=== PATIENT | male | born 1955 | race Caucasian/White ===

== ENCOUNTER → 2018-01-11 07:02 | Day surgery (SDC) | payer OTHER ==
[~2018-01-11 07:02] MED LIST: Buffered Lidocaine 0.9% SYRIN* 5 ML/SYR SYRINGE INTRADERM ONE; Bupivacaine 0.25% SDV* 30 ML ONE; Clindamycin 900 MG/D5W BAG(*) 900 MG/50 ML BAG IVPB ONE; Lidocain 1% EPI 1:100,000 * 30 ML MDV ONE; Lidocaine 2% PF * 5 ML VIAL ONE; Lidocaine 2.5%/Prilocain 2.5%* 5 GM TUBE ONE; Methylene Blue 0.5 %* 50 MG/10 ML AMP IV ONE; Metoprolol Succinate XL TAB* 25 MG PO ONE; Midazolam* 1 MG/ML 5 ML VIAL (5 MG) ONE; Naloxone* 0.4 MG/ML 1 ML VIAL IV PRN; Ondansetron INJ* 2 MG/ML VIAL ONE; Propofol* 10 MG/ML 20 ML BTL IV PUSH ONE; Scopolamine 1.5 mg* PATCH ONE; fentaNYL* 50 MCG/ML 2 ML VIAL (100 MCG VIAL) IV PRN; fentaNYL* 50 MCG/ML 2 ML VIAL (100 MCG VIAL) ONE
[2018-01-11 16:05] VITALS: BP 115/77
== END | disposition home or self-care (01) ==
LOC: OR 07:02
PROVIDERS: ATTEND Plastic Surgery
DX: C49.21 Malignant neoplasm of connective and soft tissue of right lower limb, including hip (principal); C77.4 Secondary and unspecified malignant neoplasm of inguinal and lower limb lymph nodes; Z79.84 Long term (current) use of oral hypoglycemic drugs; I10 Essential (primary) hypertension; E78.5 Hyperlipidemia, unspecified; E11.40 Type 2 diabetes mellitus with diabetic neuropathy, unspecified
CPT/HCPCS: 78195; 88305; 88307; 88341; 88342; A9270-GY; A9541; C1776; J2250; J2405; J2704; J3010

== ENCOUNTER 2018-06-13 11:54 | Observation (INO) | payer OTHER ==
[2018-06-13] MEDS ORDERED: Acetaminophen TAB* 325 MG PO PRN (12:18)
[2018-06-13] MEDS ORDERED: Loperamide CAP* 2 MG PO PRN (12:22)
[2018-06-13] MEDS ORDERED: Dextrose 50% Syringe 50 ML* 25 GM/50 ML SYRINGE IV PUSH PRN (12:23)
[2018-06-13] MEDS ORDERED: Enoxaparin(*) 40 MG/0.4 ML SYR SUBCUT SCH (13:00)
[2018-06-13] MEDS: NS 0.9% 1000 ML** 1,000 ML IV SCH ×2 (14:43→22:02)
[2018-06-13] MEDS ORDERED: traMADol TAB* 50 MG PO PRN (14:49)
--- NOTE | 2018-06-13 16:07 | CONSULT ---
Subjective Date of Service: 06/13/18 Interval History: Mr. Roman is a 63 yo male with PMH significant for HTN, HLD, DM2, diabetic neuropathy, melanoma who presented to the hospital for TENZIN and hyperglycemia. 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 He is noted to have a black pigmented raised lesion to his right 1st toe and presented to the hospital with a suspected melanona recurrence to his right 1st toe. Patient seen and examined at bedside. Family History: Unchanged from Admission Social History: Unchanged from Admission Past Medical History: Unchanged from Admission - DM2, peripheral neuropathy, HTN , HLD, melanoma. Shx: right 1st toe distal ampulation, right knee meniscus repair, 2 c spine fusions, umbilical hernia repair. Review of Systems - Review of Systems Constitutional Symptoms: Negative: Fever, Other Dermatology: Positive: Cancer - Melanoma Endocrinology: Positive: Diabetes Mellitus Neurology: Positive: Other - Peripheral neuropathy Objective Active Medications: Acetaminophen (Tylenol Tab*) 650 mg PO Q4H PRN Reason: FEVER/PAIN Aspirin (Aspirin Ec Tab*) 81 mg PO QAM [facility] Atorvastatin Calcium (Lipitor*) 40 mg PO QAM [facility] Dextrose (D50w Syringe 50 Ml*) 12.5 gm IV PUSH .FOR FS < 60 - SS PRN Reason: FS < 60 Enoxaparin Sodium (Lovenox(*)) 30 mg SUBCUT Q24H [facility] Sodium Chloride (Ns 0.9% 1000 Ml) 1,000 mls @ 125 mls/hr IV PER RATE [facility] Insulin Glargine (Lantus(*)) 20 units SUBCUT Q24H [facility] Insulin Human Lispro (Humalog*) 0 units SUBCUT ACHS [facility]; Protocol Loperamide HCl (Imodium Cap*) 2 mg PO .SEE DIRECTIONS PRN Reason: DIARRHE[facility] Metoprolol Succinate (Toprol Xl Tab*) 25 mg PO BID [facility] Polyethyl Glycol/Propylene Glycol (Lubricant Eye Drops) 1 drop BOTH EYES QID PRN Reason: DRY EYE Ramipril (Altace Cap*) 10 mg PO QAM [facility] Tramadol HCl (Ultram*) 50 mg PO Q6HR PRN Reason: PAIN Vital Signs 06/13/18 14:10 Temperature 97.5 F Pulse Rate 97 Respiratory 18 Rate Blood Pressure 135/78 (mmHg) O2 Sat by Pulse 97 Oximetry Oxygen Devices in Use Now: None Appearance: NAD, laying in bed Ears/Nose/Mouth/Throat: Mucous Membranes Moist Skin: - - See skin note below Neurological: Alert and Oriented x 3 Nutrition: Taking PO's Result Diagrams: 06/14/18 05:10 06/14/18 05:10 Additional Lab and Data: Laboratory Tests 06/12/18 06/13/18 13:40 09:48 WBC 8.3 Hgb 14.3 Hct 40 Plt Count 405 Sodium 125 L Potassium 4.6 Chloride 95 L Carbon Dioxide 16 L BUN 31 H Creatinine 3.06 H Glucose 670 H* Skin Deviation Note - Skin Deviation Findings Right first toe - Lateral aspect of the toe with a thick black raised lesion. There is mild erythema to the surrounding skin on the right toe and foot. Small amount of serosang drainage. Right anterior [place] - Multiple raised lesions, no drainage. Some with purplish discoloration and others with black discoloration. Assessment/Plan: Mr. Roman is a 63 yo male with PMH significant for HTN, HLD, DM2, diabetic neuropathy, melanoma who presented to the hospital for TENZIN and hyperglycemia. He is noted to have a raised black pigmented lesion to his right 1st toe concerning for melanoma recurrence. 1. Lesion to right 1st toe. Patient with a history of melanoma on the distal aspect of this toe in the past and previously the melanoma/distal 1st toe was surgically removed by Dr. Jack. He "bumped" his toe a few days ago and has had some bleeding from the area since. Recommend obtaining a skin biopsy to verify if this is a recurrent melanoma. Should also contact Dr. Mays (as he previously has seen the patient) for possible surgical excision. Recommend applying a dry dressing to the toe. 2. Diabetes Mellitus, type 2 with peripheral neuropathy. No HgA1C in the EMR. Maintain good glycemic control to allow for wound healing. 3. Diet. Consistent Carbohydrate 4. Code Status. Full Code 5. Disposition. OBV, disposition per the primary medicine team. TIME SPENT: Time for this wound consultation was 20 minutes and 10 minutes was spent with the patient discussing past medical history, medication, assessing, measuring, and photographing the lesion. Wound Problem/Plan Is Patient a Wound Clinic Patient: No Attending: Krystal Mcdonough
[2018-06-13] MEDS: Insulin LISPRO* 1 UNITS UNIT SUBCUT SCH ×3 (16:18→22:07)
[2018-06-13] MEDS: Enoxaparin(*) 30 MG/0.3 ML SYR SUBCUT SCH (16:19)
[2018-06-13] MEDS ORDERED: Insulin GLARGINE(*) 1 UNITS UNIT SUBCUT SCH (17:00)
[2018-06-13] MEDS: Polyethyl Glycol/Propylene Gly OPHTH.SOLN BOTH EYES PRN ×2 (18:27→19:30)
[2018-06-13] MEDS ORDERED: Insulin LISPRO* 1 UNITS UNIT SUBCUT ONE ×2 (19:00→22:05)
[2018-06-13] MEDS: Metoprolol Succinate XL TAB* 25 MG PO SCH (21:58)
[2018-06-14] MEDS: NS 0.9% 1000 ML** 1,000 ML IV SCH (05:34)
[2018-06-14 06:02] LABS: ABS Basophils 0 10^3/ul (0-0.2); ABS Eosinophils 0 10^3/ul (0-0.6); ABS Lymphocytes 1.1 10^3/ul (1.0-4.8); ABS Monocytes 0.6 10^3/ul (0-0.8); ABS Nucleated RBC 0 10^3/ul; Eosinophil % 0.2 %; Hematocrit 29 % (36-46); Hemoglobin 10.3 g/dL (14.0-18.0); Lymphocyte % 10.8 %; Mean Corpuscular HGB Conc 36 g/dL (31-36); Mean Corpuscular Hemoglobin 29 pg (27-31); Mean Corpuscular Volume 82 fL (80-94); Mean Platelet Volume 7.3 fL (7.4-10.4); Nucleated Red Blood Cells % 0; Platelet Count 247 10^3/uL (150-450); Red Blood Count 3.55 10^6 /uL (4.18-5.48); Red Cell Distribution Width 13 % (10.5-15); White Blood Count 9.8 10^3/uL (3.5-10.8)
[2018-06-14 06:22] LABS: Albumin 3.1 g/dL (3.2-5.2); Albumin/Globulin Ratio 1.1 (1-3); BUN/Creatinine Ratio 12.7 (8-20); Calcium 7.7 mg/dL (8.6-10.3); EGFR African American 33.7 (>60); EGFR Non-African American 27.9 (>60); Globulin 2.9 g/dL (2-4); Potassium 4.1 mmol/L (3.5-5.0); Total Bilirubin 0.5 mg/dL (0.2-1.0)
[2018-06-14] MEDS ORDERED: Magnesium Sulfate CRYSTAL* 454 GM BOX PRN (08:05)
[2018-06-14 08:07] VITALS: BP 110/68
[2018-06-14] MEDS: Insulin LISPRO* 1 UNITS UNIT SUBCUT SCH ×2 (08:27→12:38)
[2018-06-14] MEDS: Metoprolol Succinate XL TAB* 25 MG PO SCH (08:28)
[2018-06-14] MEDS ORDERED: predniSONE TAB* 20 MG PO SCH (09:00)
[2018-06-14] MEDS ORDERED: Ramipril CAP* 10 MG PO SCH (09:00)
[2018-06-14] MEDS ORDERED: predniSONE TAB* 50 MG PO SCH (09:00)
[2018-06-14] MEDS ORDERED: Aspirin EC TAB* 81 MG TAB.EC PO SCH (09:00)
[2018-06-14] MEDS ORDERED: Atorvastatin* 40 MG TAB PO SCH (09:00)
[2018-06-14] MEDS ORDERED: Insulin GLARGINE(*) 1 UNITS UNIT SUBCUT ONE (09:25)
--- NOTE | 2018-06-14 12:19 | DS ---
CC: Dr. Castro; Dr. Rangel* DATE OF ADMISSION: 06/13/2018. DATE OF DISCHARGE: 06/14/2018. PRIMARY CARE PHYSICIAN: Dr. Castro. PRIMARY ONCOLOGIST AND ATTENDING PHYSICIAN: Dr. Hugo Rangel* (dictated by MARIAM Brand). DISCHARGING PROVIDER: MARIAM Brand. PRIMARY DISCHARGE DIAGNOSES: 1. Acute kidney injury secondary to hypovolemia secondary to GI loss from immune mediated enteritis and complicated by hyperglycemia. 2. Hyperglycemia exacerbated by steroid use. 3. 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 4. 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 5. Diabetes, now insulin dependent. DISCHARGE MEDICATIONS: 1. Aspirin 81 mg p.o. daily. 2. Atorvastatin 40 mg p.o. daily. 3. Vitamin D3 2,000 units p.o. daily. 4. Metoprolol Succinate 25 mg p.o. twice daily. 5. Multivitamin one capsule p.o. daily. 6. Ramipril 10 mg p.o. daily. 7. Ultram 50 mg p.o. q.6 hours as needed. 8. Insulin Glargine 60 units subcu daily. 9. Loperamide 2 mg p.o. q.loose bowel movement prn diarrhea. 10. Prednisone 60 mg p.o. daily with plans to taper. HOSPITAL IMAGING: None. HOSPITAL COURSE: This is a 63-year-old gentleman with known melanoma who unfortunately has experienced recent cutaneous metastases, currently treated with Nivolumab and Ipilimumab and has received two cycles. He presented with several days of severe diarrhea and associated with acute kidney injury for which he received IV fluids in the Oncology Clinic and started on oral Prednisone as it was likely due to an immune mediated enteritis. The patient subsequently presented the following day with severe hyperglycemia and persistent elevation of his creatinine and was subsequently admitted to a period of observation for additional hydration and glucose control. Labs at the time of admission included a creatinine of 3.06, down from 3.3 the day prior , a sodium of 125, and a glucose of 646. The patient received IV fluid and insulin. Over a period of approximately 20 hours, the patient received 82 units of insulin total between Lantus and Humalog and his fasting glucose on the day of discharge is 315 mg/dl. The patient reported that he had a formed bowel movement overnight. He denied abdominal pain, nausea or vomiting. DISPOSITION AND FOLLOW-UP PLAN: The patient is being discharged to home. Will initiate Lantus 60 units subcu daily. Anticipate that this may need to be titrated further. His is quite familiar with insulin administration as she does it for herself on a daily basis. At this time, fasting blood glucose goals are 250 or less. Anticipate that his glycemic control will improve as his prednisone is tapered. His diarrhea has slowed and he did have a formed bowel movement prior to discharge. Anticipate that his renal function will continue to improve as his glycemic control continues to improve and his diarrhea has stopped. The patient will be seen on Monday, June 18 for labs and an office visit in the Oncology Clinic. Immunotherapy is currently on hold with plans to resume if his diarrhea does not return with completion of his steroid taper. MARIAM BRAND [id number]/[facility] #: [id number] PAOLA
[2018-06-14] MEDS: Enoxaparin(*) 30 MG/0.3 ML SYR SUBCUT SCH (12:38)
[2018-06-14] MEDS ORDERED: Insulin GLARGINE(*) 1 UNITS UNIT SUBCUT SCH (21:00)
== END 2018-06-14 13:40 | disposition home or self-care (01) ==
LOC: MED 14:25
PROVIDERS: ADMIT Internal Medicine Hematology & Oncology; ATTEND Internal Medicine Hematology & Oncology
DX: N17.9 Acute kidney failure, unspecified (principal); E86.1 Hypovolemia; E11.65 Type 2 diabetes mellitus with hyperglycemia; C79.2 Secondary malignant neoplasm of skin; I10 Essential (primary) hypertension; E78.5 Hyperlipidemia, unspecified; Z79.52 Long term (current) use of systemic steroids; Z79.82 Long term (current) use of aspirin
CPT/HCPCS: 36415; 80053; 82947; 83036; 85025; 96360; 96361; 96372; 99217; 99220; 99223; A9270-GY; G0378; J1650; J7512

== ENCOUNTER 2018-07-02 13:33 | Inpatient (IN) | payer OTHER ==
[2018-07-02] MEDS ORDERED: Dextrose 50% Syringe 50 ML* 25 GM/50 ML SYRINGE IV PUSH PRN (13:56)
[2018-07-02] MEDS: Ondansetron INJ* 2 MG/ML VIAL IV PRN ×2 (15:47→22:05)
[2018-07-02] MEDS: NS 0.9% 1000 ML** 1,000 ML IV SCH (15:47)
[2018-07-02] MEDS ORDERED: Iodixanol* (CONTRAST) 320 MG/ML 100 ML SDV IV ONE (17:08)
[2018-07-02] MEDS: Insulin GLARGINE(*) 1 UNITS UNIT SUBCUT SCH (18:01)
[2018-07-02] MEDS: Enoxaparin(*) 30 MG/0.3 ML SYR SUBCUT SCH (18:01)
[2018-07-02] MEDS: Insulin LISPRO* 1 UNITS UNIT SUBCUT SCH ×2 (18:01→22:04)
[2018-07-02] MEDS: Metoprolol Succinate XL TAB* 25 MG PO SCH ×2 (21:57→21:58)
[2018-07-02] MEDS: oxyCODONE/Acetamin 5/325 MG* TAB PO PRN (21:58)
[2018-07-03] MEDS: NS 0.9% 1000 ML** 1,000 ML IV SCH ×3 (02:30→23:31)
[2018-07-03 06:25] LABS: Hematocrit 37 % (36-46); Hemoglobin 12.7 g/dL (14.0-18.0); Mean Corpuscular HGB Conc 34 g/dL (31-36); Mean Corpuscular Hemoglobin 29 pg (27-31); Mean Corpuscular Volume 86 fL (80-94); Mean Platelet Volume 7.5 fL (7.4-10.4); Platelet Count 142 10^3/uL (150-450); Red Blood Count 4.35 10^6 /uL (4.18-5.48); Red Cell Distribution Width 14 % (10.5-15); White Blood Count 3.3 10^3/uL (3.5-10.8)
[2018-07-03] MEDS: Ondansetron INJ* 2 MG/ML VIAL IV PRN ×2 (06:30→19:31)
[2018-07-03] MEDS: oxyCODONE/Acetamin 5/325 MG* TAB PO PRN (06:31)
[2018-07-03 06:54] LABS: ABS Basophils 0 10^3/ul (0-0.2); ABS Eosinophils 0.5 10^3/ul (0-0.6); ABS Lymphocytes 0.8 10^3/ul (1.0-4.8); ABS Monocytes 0.8 10^3/ul (0-0.8); ABS Neutrophils 1.2 10^3/ul (1.5-7.7); ABS Nucleated RBC 0 10^3/ul; Eosinophil % 14.4 %; Nucleated Red Blood Cells % 0
[2018-07-03 06:57] LABS: Albumin/Globulin Ratio 1.3 (1-3); BUN/Creatinine Ratio 10.1 (8-20); Calcium 7.4 mg/dL (8.6-10.3); EGFR African American 92.4 (>60); EGFR Non-African American 76.3 (>60); Globulin 2.3 g/dL (2-4); Magnesium 1.7 mg/dL (1.9-2.7); Potassium 3.1 mmol/L (3.5-5.0); Total Bilirubin 1.7 mg/dL (0.2-1.0); Total Protein 5.3 g/dL (6.4-8.9)
[2018-07-03] MEDS: Metoprolol Succinate XL TAB* 25 MG PO SCH ×2 (07:30→20:53)
[2018-07-03] MEDS: Acetaminophen TAB* 325 MG PO PRN ×2 (07:38→19:32)
[2018-07-03] MEDS: Vitamin THERAPEUTIC TAB PO SCH (07:39)
[2018-07-03] MEDS: Aspirin EC TAB* 81 MG TAB.EC PO SCH (07:39)
[2018-07-03] MEDS: Insulin LISPRO* 1 UNITS UNIT SUBCUT SCH ×4 (07:39→20:52)
[2018-07-03] MEDS ORDERED: Magnesium Sulf 4 GM/100 ML IV* 4,000 MG/100 ML BAG IVPB ONE (08:54)
[2018-07-03] MEDS: NS 0.9% 1000 ML** 3,000 ML IV ONE ×3 (09:17→12:07)
[2018-07-03] MEDS: Cefepime 2 GM in Dextrose(*) 2 GM/50 ML BAG IV SCH ×2 (09:45→20:52)
--- NOTE | 2018-07-03 09:45 | PN ---
Progress Note - Progress Note Date of Service: 07/03/18 SOAP: Subjective: [Admitted yesterday with n/v/d, his had similar symptoms starting ~3d ago. Overnight, patient had severe diarrhea. He was unable to make it to the restroom in time. He ate one bite of egg with breakfast and immediately vomited. He subsequently spiked a fever with hypotension and tachycardia. ] Objective: [ Laboratory Results - last 24 hr 07/02/18 07/02/18 07/03/18 16:39 20:27 05:55 WBC RBC Hgb Hct MCV MCH MCHC RDW Plt Count MPV Neut % (Auto) Lymph % (Auto) Schuyler % (Auto) Eos % (Auto) Baso % (Auto) Absolute Neuts (auto) Absolute Lymphs (auto) Absolute Monos (auto) Absolute Eos (auto) Absolute Basos (auto) Absolute Nucleated RBC Nucleated RBC % Sodium 131 L Potassium 3.1 L Chloride 102 Carbon Dioxide 20 L Anion Gap 9 BUN 10 Creatinine 0.99 Est GFR ( Amer) 92.4 Est GFR (Non-Af Amer) 76.3 BUN/Creatinine Ratio 10.1 Glucose 87 POC Glucose (mg/dL) 218 H 161 H Calcium 7.4 L Magnesium 1.7 L Total Bilirubin 1.70 H AST 26 ALT 26 Alkaline Phosphatase 139 H Total Protein 5.3 L Albumin 3.0 L Globulin 2.3 Albumin/Globulin Ratio 1.3 07/03/18 07/03/18 05:56 07:38 WBC 3.3 L RBC 4.35 Hgb 12.7 L Hct 37 MCV 86 MCH 29 MCHC 34 RDW 14 Plt Count 142 L MPV 7.5 Neut % (Auto) 36.9 Lymph % (Auto) 23.0 Schuyler % (Auto) 24.9 Eos % (Auto) 14.4 Baso % (Auto) 0.8 Absolute Neuts (auto) 1.2 L Absolute Lymphs (auto) 0.8 L Absolute Monos (auto) 0.8 Absolute Eos (auto) 0.5 Absolute Basos (auto) 0 Absolute Nucleated RBC 0 Nucleated RBC % 0 Sodium Potassium Chloride Carbon Dioxide Anion Gap BUN Creatinine Est GFR ( Amer) Est GFR (Non-Af Amer) BUN/Creatinine Ratio Glucose POC Glucose (mg/dL) 74 Calcium Magnesium Total Bilirubin AST ALT Alkaline Phosphatase Total Protein Albumin Globulin Albumin/Globulin Ratio Acetaminophen (Tylenol Tab*) 650 mg PO Q4H PRN PRN Reason: FEVER/PAIN Last Admin: 07/03/18 07:38 Dose: 650 mg Aspirin (Aspirin Ec Tab*) 81 mg PO QAM [facility] Last Admin: 07/03/18 07:39 Dose: 81 mg Dextrose (D50w Syringe 50 Ml*) 12.5 gm IV PUSH .FOR FS < 60 - SS PRN PRN Reason: FS < 60 Enoxaparin Sodium (Lovenox(*)) 30 mg SUBCUT Q24H [facility] Last Admin: 07/02/18 18:01 Dose: 30 mg Sodium Chloride (Ns 0.9% 1000 Ml) 1,000 mls @ 125 mls/hr IV PER RATE [facility] Last Admin: 07/03/18 02:30 Dose: 125 mls/hr Sodium Chloride (Ns 0.9% 1000 Ml) 3,000 mls @ 1,000 mls/hr IV .PER RATE ONE Stop: 07/03/18 11:50 Last Admin: 07/03/18 09:17 Dose: 1,000 mls/hr Cefepime HCl (Maxipime 2 Gm In Dextrose Duplex (*)) 2 gm in 50 mls @ 100 mls/ hr IV Q12H [facility] Metronidazole/Sodium Chloride (Flagyl 500 Mg Ivpb*) 500 mg in 100 mls @ 100 mls /hr IVPB Q8H [facility] Magnesium Sulfate (Magnesium Sulf 4 Gm/100 Ml Iv*) 4,000 mg in 100 mls @ 33.333 mls/hr IVPB ONCE ONE Stop: 07/03/18 11:53 Potassium Chloride (Potassium Chloride 10 Meq/50 Ml Ivpremix*) 10 meq in 50 mls @ 50 mls/hr IV Q1H [facility] Stop: 07/03/18 11:59 Insulin Glargine (Lantus(*)) 35 units SUBCUT Q24H [facility] Last Admin: 07/02/18 18:01 Dose: 35 units Insulin Human Lispro (Humalog*) 0 units SUBCUT ACHS [facility]; Protocol Last Admin: 07/03/18 07:39 Dose: Not Given Metoprolol Succinate (Toprol Xl Tab*) 25 mg PO BID [facility] Last Admin: 07/03/18 07:30 Dose: Not Given Multivitamins (Theragran Tab*) 1 tab PO QAM [facility] Last Admin: 07/03/18 07:39 Dose: 1 tab Ondansetron HCl (Zofran Inj*) 4 mg IV Q4H PRN PRN Reason: NAUSEA/VOMITING Last Admin: 07/03/18 06:30 Dose: 4 mg Oxycodone/Acetaminophen (Percocet 5/325 Tab*) 1 tab PO Q4H PRN PRN Reason: Pain Last Admin: 07/03/18 06:31 Dose: 1 tab Pantoprazole Sodium (Protonix Iv*) 40 mg IV DAILY [facility] Vital Signs: Temp Pulse Resp BP Pulse Ox 98.5 F 123 20 96/59 95 07/03/18 09:18 07/03/18 07:26 07/03/18 08:26 07/03/18 07:26 07/03/18 07:26 Exam: Gen: Relatively well appearing 63 yo male in NAD HEENT: thrush CV: RRR, no m/r/g Resp: CTA, no w/c/r Abd: soft, normoactive BS, nonTTP Ext: no edema Skin: nodular rash over mid RLL and R inguinal region, no associated erythema] Assessment: [63 yo male with melanoma admitted with n/v/d which started acutely ~2d prior to admission. He was unable to tolerate anything po and was subsequently admitted. This am he has developed fever, tachycardia and hypotension - thus meeting sepsis criteria.] Plan: [1. Sepsis - suspect GI source - fluid bolus now (2700 ml) - blood cultures ordered, start Cefepime/Flagyl following blood cx - stool cx pending 2. Thrush - start clotrimazole trouches - recently completed a course of high dose prednisone 3. Melanoma - recently completed course of high dose prednisone for immune mediated colitis - seems unlikely that his current symptoms are immune mediated as a result of immunotherapy - plan to resume immunotherapy following this admission 4. DM - cont basal/bolus regimen Dispo: now meeting sepsis criteria, requires further inpatient evaluation]
[2018-07-03] MEDS: metroNIDAZOLE IV 500 MG/100ML* 500 MG/100 ML BAG IVPB SCH ×2 (09:46→17:16)
[2018-07-03] MEDS: Pantoprazole IV* 40 MG IV SCH (10:48)
[2018-07-03] MEDS: Clotrimazole TROCHE* 10 MG TROCHE PO SCH ×4 (11:06→20:53)
[2018-07-03] MEDS: KCL 10 MEQ/50 ML IVPREMIX* 10 MEQ/50 ML BAG IV SCH ×3 (11:12→14:35)
[2018-07-03] MEDS: Insulin GLARGINE(*) 1 UNITS UNIT SUBCUT SCH (17:03)
[2018-07-03] MEDS: Enoxaparin(*) 30 MG/0.3 ML SYR SUBCUT SCH (17:16)
[2018-07-04] MEDS: metroNIDAZOLE IV 500 MG/100ML* 500 MG/100 ML BAG IVPB SCH ×3 (01:20→17:47)
[2018-07-04] MEDS: Clotrimazole TROCHE* 10 MG TROCHE PO SCH ×5 (05:28→21:02)
[2018-07-04] MEDS: Insulin LISPRO* 1 UNITS UNIT SUBCUT SCH ×4 (08:06→21:12)
[2018-07-04] MEDS: Vitamin THERAPEUTIC TAB PO SCH (08:39)
[2018-07-04] MEDS: Aspirin EC TAB* 81 MG TAB.EC PO SCH (08:39)
[2018-07-04] MEDS: Ondansetron INJ* 2 MG/ML VIAL IV PRN ×2 (08:42→14:09)
[2018-07-04] MEDS: Pantoprazole IV* 40 MG IV SCH (08:46)
[2018-07-04] MEDS: Cefepime 2 GM in Dextrose(*) 2 GM/50 ML BAG IV SCH ×2 (08:50→21:00)
[2018-07-04] MEDS: Metoprolol Succinate XL TAB* 25 MG PO SCH ×2 (09:04→20:53)
--- NOTE | 2018-07-04 09:53 | PN ---
Progress Note - Progress Note Date of Service: 07/04/18 SOAP: Subjective: []Continued diarrhea overnight, explosive. Denies overt abd. pain. Nausea following pills and didn't fee like breakfast. Wants a banana. Peeing OK. Elbows "burn" and feel "hot". Tmax. 100.3 @ approx. 1900 Medications: Acetaminophen (Tylenol Tab*) 650 mg PO Q4H PRN PRN Reason: FEVER/PAIN Last Admin: 07/03/18 19:32 Dose: 650 mg Aspirin (Aspirin Ec Tab*) 81 mg PO QAM [facility] Last Admin: 07/04/18 08:39 Dose: 81 mg Clotrimazole (Mycelex Maryuri*) 10 mg PO FIVE TIMES DAILY [facility] Last Admin: 07/04/18 05:28 Dose: Not Given Dextrose (D50w Syringe 50 Ml*) 12.5 gm IV PUSH .FOR FS < 60 - SS PRN PRN Reason: FS < 60 Last Admin: 07/03/18 12:30 Dose: 12.5 gm Enoxaparin Sodium (Lovenox(*)) 30 mg SUBCUT Q24H [facility] Last Admin: 07/03/18 17:16 Dose: 30 mg Sodium Chloride (Ns 0.9% 1000 Ml) 1,000 mls @ 125 mls/hr IV PER RATE [facility] Last Admin: 07/03/18 23:31 Dose: 125 mls/hr Cefepime HCl (Maxipime 2 Gm In Dextrose Duplex (*)) 2 gm in 50 mls @ 100 mls/ hr IV Q12H [facility] Last Admin: 07/04/18 08:50 Dose: 100 mls/hr Metronidazole/Sodium Chloride (Flagyl 500 Mg Ivpb*) 500 mg in 100 mls @ 100 mls /hr IVPB Q8H [facility] Last Admin: 07/04/18 01:20 Dose: 100 mls/hr Insulin Glargine (Lantus(*)) 35 units SUBCUT Q24H [facility] Last Admin: 07/03/18 17:03 Dose: Not Given Insulin Human Lispro (Humalog*) 0 units SUBCUT ACHS [facility]; Protocol Last Admin: 07/04/18 08:06 Dose: Not Given Metoprolol Succinate (Toprol Xl Tab*) 25 mg PO BID [facility] Last Admin: 07/04/18 09:04 Dose: Not Given Multivitamins (Theragran Tab*) 1 tab PO QAM [facility] Last Admin: 07/04/18 08:39 Dose: 1 tab Ondansetron HCl (Zofran Inj*) 4 mg IV Q4H PRN PRN Reason: NAUSEA/VOMITING Last Admin: 07/04/18 08:42 Dose: 4 mg Oxycodone/Acetaminophen (Percocet 5/325 Tab*) 1 tab PO Q4H PRN PRN Reason: Pain Last Admin: 07/03/18 06:31 Dose: 1 tab Pantoprazole Sodium (Protonix Iv*) 40 mg IV DAILY [facility] Last Admin: 07/04/18 08:46 Dose: 40 mg Objective: [] Vital Signs Temp Pulse Resp BP Pulse Ox 97.6 F 80 18 100/60 98 07/04/18 07:30 07/04/18 07:30 07/04/18 07:30 07/04/18 07:30 07/04/18 07:30 A&Ox3, EOMI, neuro grossly intact HRR, S1S2 LS clear bilat. +BS, abd. soft with defuse mild tenderness, no point or rebound tenderness Ulcerated melanoma tumor benign Laboratory Results - last 24 hr 07/03/18 07/03/18 07/03/18 12:15 13:04 17:00 WBC RBC Hgb Hct MCV MCH MCHC RDW Plt Count MPV Sodium Potassium Chloride Carbon Dioxide Anion Gap BUN Creatinine Est GFR ( Amer) Est GFR (Non-Af Amer) BUN/Creatinine Ratio Glucose POC Glucose (mg/dL) 58 L 115 H 81 Calcium Magnesium Total Bilirubin AST ALT Alkaline Phosphatase Total Protein Albumin Globulin Albumin/Globulin Ratio 07/03/18 07/04/18 07/04/18 20:52 07:54 10:38 WBC 4.7 RBC 4.56 Hgb 13.3 L Hct 39 L MCV 85 MCH 29 MCHC 34 RDW 14 Plt Count 198 MPV 7.8 Sodium Potassium Chloride Carbon Dioxide Anion Gap BUN Creatinine Est GFR ( Amer) Est GFR (Non-Af Amer) BUN/Creatinine Ratio Glucose POC Glucose (mg/dL) 71 91 Calcium Magnesium Total Bilirubin AST ALT Alkaline Phosphatase Total Protein Albumin Globulin Albumin/Globulin Ratio 07/04/18 10:38 WBC RBC Hgb Hct MCV MCH MCHC RDW Plt Count MPV Sodium 131 L Potassium 4.1 Chloride 104 Carbon Dioxide 17 L Anion Gap 10 BUN 5 L Creatinine 1.13 Est GFR ( Amer) 79.3 Est GFR (Non-Af Amer) 65.5 BUN/Creatinine Ratio 4.4 L Glucose 97 POC Glucose (mg/dL) Calcium 7.3 L Magnesium 1.8 L Total Bilirubin 1.50 H AST 17 ALT 18 Alkaline Phosphatase 112 H Total Protein 5.2 L Albumin 2.8 L Globulin 2.4 Albumin/Globulin Ratio 1.2 Microbiology 07/02/18 18:13 Escherichia coli 0157 Culture - Final Stool Stool Gross Appearance - Final Shiga Toxin I & II - Final Negative Shiga Toxin 1 & 2 Stool Lactoferrin - Final 07/03/18 23:00 Stool Gross Appearance - Final Stool C. difficile DNA Amplification - Final 027 Presumptive NEGATIVE Toxigenic C.diff NEGATIVE Assessment: []63 yo male with melanoma admitted with n/v/d which started acutely 2d prior to admission suspicious for infectious process d/t recently ill and acute onset, however he had also been on a steroid taper d/t immune mediated colitis tapered down to 5 mg as of 06/30 when symptoms began. Yesterday AM concerning for sepsis, however BP improved, stable HR, and tmax. 100.3F last evening, I suspect this was SIRS in the setting of inflammatory diarrhea and dehydration. Plan: []1. 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 SIRS: fever, hypotension, and tachycardia yesterday concerning for sepsis from GI source - normal lactic acid, blood cultures pending - stool work-up thus far negative, cultures pending - cont. Cefepime/Flagyl for at least 3 days with negative cultures 3. Thrush: recent steroids and DM - cont. clotrimazole trouches, IV Flagyl may help as well 4. Rahs: suspect contact reaction of bleach brush cleaner on chair in clinic - hydrocortisone cream BID 5. Melanoma - therapy on hold d/t need for high dose steroids, may alternate therapy as extended taper may be required - cont. xeroform dressing to toe 6. DM - cont basal/bolus regimen - may need increased lantus with steroids Dispo: pending negative cultures and improved symptoms on steroids prior to discharge - hopeful for d/c 07/06/18 AM
[2018-07-04] MEDS: NS 0.9% 1000 ML** 1,000 ML IV SCH ×2 (10:53→21:00)
[2018-07-04] MEDS ORDERED: predniSONE TAB* 20 MG PO SCH (11:00)
[2018-07-04 11:07] LABS: Albumin 2.8 g/dL (3.2-5.2); Albumin/Globulin Ratio 1.2 (1-3); BUN/Creatinine Ratio 4.4 (8-20); Calcium 7.3 mg/dL (8.6-10.3); EGFR African American 79.3 (>60); EGFR Non-African American 65.5 (>60); Globulin 2.4 g/dL (2-4); Magnesium 1.8 mg/dL (1.9-2.7); Potassium 4.1 mmol/L (3.5-5.0); Total Bilirubin 1.5 mg/dL (0.2-1.0); Total Protein 5.2 g/dL (6.4-8.9)
[2018-07-04 11:46] LABS: Hematocrit 39 % (42-52); Hemoglobin 13.3 g/dL (14.0-18.0); Mean Corpuscular HGB Conc 34 g/dL (31-36); Mean Corpuscular Hemoglobin 29 pg (27-31); Mean Corpuscular Volume 85 fL (80-94); Mean Platelet Volume 7.8 fL (7.4-10.4); Platelet Count 198 10^3/uL (150-450); Red Blood Count 4.56 10^6 /uL (4.18-5.48); Red Cell Distribution Width 14 % (10.5-15); White Blood Count 4.7 10^3/uL (3.5-10.8)
[2018-07-04 12:16] LABS: Neutrophil % 39 %
[2018-07-04 12:17] LABS: ABS Neutrophils 2.4 10^3/ul (1.5-7.7); Immature Granulocytes 11 % (0-9); Lymphocytes % 12 %; Monocytes % 22 %
[2018-07-04 12:18] LABS: ABS Eosinophils 0.8 10^3/ul (0-0.6)
[2018-07-04] MEDS: Enoxaparin(*) 30 MG/0.3 ML SYR SUBCUT SCH (14:01)
[2018-07-04] MEDS: Hydrocortisone 1% CREAM* 30 GM TUBE TOPICAL SCH ×2 (14:03→21:02)
[2018-07-04] MEDS: methylPREDNISolone SOD 40 MG* 1 ML VIAL IV SCH (16:10)
[2018-07-05] MEDS: methylPREDNISolone SOD 40 MG* 1 ML VIAL IV SCH ×2 (02:20→15:32)
[2018-07-05] MEDS: metroNIDAZOLE IV 500 MG/100ML* 500 MG/100 ML BAG IVPB SCH ×3 (02:20→18:06)
[2018-07-05] MEDS: Clotrimazole TROCHE* 10 MG TROCHE PO SCH ×5 (05:54→22:02)
[2018-07-05] MEDS: NS 0.9% 1000 ML** 1,000 ML IV SCH ×2 (07:58→18:14)
[2018-07-05] MEDS ORDERED: Loperamide CAP* 2 MG PO PRN (08:25)
[2018-07-05] MEDS: Cefepime 2 GM in Dextrose(*) 2 GM/50 ML BAG IV SCH ×2 (08:57→22:01)
[2018-07-05] MEDS: Insulin LISPRO* 1 UNITS UNIT SUBCUT SCH ×4 (08:57→22:40)
[2018-07-05] MEDS: Insulin GLARGINE(*) 1 UNITS UNIT SUBCUT SCH (08:58)
[2018-07-05] MEDS: Vitamin THERAPEUTIC TAB PO SCH (08:59)
[2018-07-05] MEDS: Aspirin EC TAB* 81 MG TAB.EC PO SCH (08:59)
[2018-07-05] MEDS: Metoprolol Succinate XL TAB* 25 MG PO SCH ×2 (09:11→22:01)
[2018-07-05] MEDS: Pantoprazole IV* 40 MG IV SCH (09:11)
[2018-07-05] MEDS: Hydrocortisone 1% CREAM* 30 GM TUBE TOPICAL SCH ×2 (09:11→22:02)
[2018-07-05 10:00] LABS: Hematocrit 40 % (42-52); Hemoglobin 13.2 g/dL (14.0-18.0); Mean Corpuscular HGB Conc 33 g/dL (31-36); Mean Corpuscular Hemoglobin 29 pg (27-31); Mean Corpuscular Volume 88 fL (80-94); Mean Platelet Volume 7.5 fL (7.4-10.4); Platelet Count 268 10^3/uL (150-450); Red Blood Count 4.54 10^6 /uL (4.18-5.48); Red Cell Distribution Width 15 % (10.5-15); White Blood Count 5.9 10^3/uL (3.5-10.8)
[2018-07-05] MEDS ORDERED: PROCHLORPERAZINE INJ 5 MG/ML 2 ML VIAL IV PRN (10:08)
--- NOTE | 2018-07-05 10:10 | PN ---
Progress Note - Progress Note Date of Service: 07/05/18 SOAP: Subjective: []Feels OK, however had two episodes this AM. First felt off and became diaphoretic, nurse noted tachycardia and EKG obtained. No fever at that time. Second was sitting up and got nauseated, laid down and felt better. "I actually feel pretty good." No diarrhea overnight and no accidents, "I passed normal gas today!" Ate some fruit this AM. Rash to elbows maybe slightly better, but has a rash to neck noted when looking in the mirror, "I didn't realize at first." - denies itching, but almost tender Medications: Acetaminophen (Tylenol Tab*) 650 mg PO Q4H PRN PRN Reason: FEVER/PAIN Last Admin: 07/03/18 19:32 Dose: 650 mg Aspirin (Aspirin Ec Tab*) 81 mg PO QAM [facility] Last Admin: 07/05/18 08:59 Dose: 81 mg Clotrimazole (Mycelex Maryuri*) 10 mg PO FIVE TIMES DAILY [facility] Last Admin: 07/05/18 10:04 Dose: 10 mg Dextrose (D50w Syringe 50 Ml*) 12.5 gm IV PUSH .FOR FS < 60 - SS PRN PRN Reason: FS < 60 Last Admin: 07/03/18 12:30 Dose: 12.5 gm Enoxaparin Sodium (Lovenox(*)) 30 mg SUBCUT Q24H [facility] Last Admin: 07/04/18 14:01 Dose: 30 mg Hydrocortisone (Hytone Cream 1%*) 1 applic TOPICAL BID [facility] Last Admin: 07/05/18 09:11 Dose: 1 applic Sodium Chloride (Ns 0.9% 1000 Ml) 1,000 mls @ 125 mls/hr IV PER RATE [facility] Last Admin: 07/05/18 07:58 Dose: 125 mls/hr Cefepime HCl (Maxipime 2 Gm In Dextrose Duplex (*)) 2 gm in 50 mls @ 100 mls/ hr IV Q12H [facility] Last Admin: 07/05/18 08:57 Dose: 100 mls/hr Metronidazole/Sodium Chloride (Flagyl 500 Mg Ivpb*) 500 mg in 100 mls @ 100 mls /hr IVPB Q8H [facility] Last Admin: 07/05/18 10:09 Dose: 100 mls/hr Insulin Glargine (Lantus(*)) 15 units SUBCUT Q24H [facility] Last Admin: 07/05/18 08:58 Dose: 15 unit Insulin Human Lispro (Humalog*) 0 units SUBCUT ACHS [facility]; Protocol Last Admin: 07/05/18 08:57 Dose: 8 units Loperamide HCl (Imodium Cap*) 2 mg PO .SEE DIRECTIONS PRN PRN Reason: DIARRHEA Methylprednisolone Sodium Succinate (Solu-Medrol 40 Mg) 40 mg IV Q12H [facility] Last Admin: 07/05/18 02:20 Dose: 40 mg Metoprolol Succinate (Toprol Xl Tab*) 25 mg PO BID [facility] Last Admin: 07/05/18 09:11 Dose: 25 mg Multivitamins (Theragran Tab*) 1 tab PO QAM [facility] Last Admin: 07/05/18 08:59 Dose: 1 tab Oxycodone/Acetaminophen (Percocet 5/325 Tab*) 1 tab PO Q4H PRN PRN Reason: Pain Last Admin: 07/03/18 06:31 Dose: 1 tab Pantoprazole Sodium (Protonix Iv*) 40 mg IV DAILY [facility] Last Admin: 07/05/18 09:11 Dose: 40 mg Prochlorperazine Edisylate (Compazine Inj*) 10 mg IV Q6H PRN PRN Reason: NAUSEA/VOMITING Objective: [] Vital Signs Temp Pulse Resp BP Pulse Ox 97.1 F 161 18 132/92 100 07/05/18 07:30 07/05/18 09:00 07/05/18 07:30 07/05/18 09:00 07/05/18 07:30 A&Ox3, neuro grossly non-focal HRR, S1S2, regular rate at this time and 12-lead EKG SR (note tachycardia above from episode this AM) LS clear bilat., no wheeze or rhonchi, resp. even and non-labored +BS throughout, abd. soft and round, slight tenderness to lower quads but minimal Rash to elbows fading Red blotchy rash to right lateral neck and scattered down back without pustules Laboratory Results - last 24 hr 07/04/18 07/04/18 07/04/18 10:38 10:38 11:51 WBC 4.7 RBC 4.56 Hgb 13.3 L Hct 39 L MCV 85 MCH 29 MCHC 34 RDW 14 Plt Count 198 MPV 7.8 Neut % (Auto) Not Reportable Lymph % (Auto) Not Reportable Karnes % (Auto) Not Reportable Eos % (Auto) Not Reportable Baso % (Auto) Not Reportable Absolute Neuts (auto) Not Reportable Absolute Lymphs (auto) Not Reportable Absolute Monos (auto) Not Reportable Absolute Eos (auto) Not Reportable Absolute Basos (auto) Not Reportable Absolute Nucleated RBC Not Reportable Immature Gran % 11 H Neutrophils % 39 Band Neutrophils % 11 H Lymphocytes % 12 Monocytes % 22 Eosinophils % 16 Nucleated RBC % Not Reportable Abs Neuts (Manual) 2.4 Abs Lymphs (Manual) 0.6 L Abs Monocytes (Manual) 1.0 H Absolute Eos (Manual) 0.8 H Dohle Bodies Present Normal RBC Morphology Normal Hem Pathologist Commnt Sodium 131 L Potassium 4.1 Chloride 104 Carbon Dioxide 17 L Anion Gap 10 BUN 5 L Creatinine 1.13 Est GFR ( Amer) 79.3 Est GFR (Non-Af Amer) 65.5 BUN/Creatinine Ratio 4.4 L Glucose 97 POC Glucose (mg/dL) 97 Calcium 7.3 L Magnesium 1.8 L Total Bilirubin 1.50 H AST 17 ALT 18 Alkaline Phosphatase 112 H Total Protein 5.2 L Albumin 2.8 L Globulin 2.4 Albumin/Globulin Ratio 1.2 07/04/18 07/04/18 07/05/18 17:35 21:03 07:21 WBC RBC Hgb Hct MCV MCH MCHC RDW Plt Count MPV Neut % (Auto) Lymph % (Auto) Karnes % (Auto) Eos % (Auto) Baso % (Auto) Absolute Neuts (auto) Absolute Lymphs (auto) Absolute Monos (auto) Absolute Eos (auto) Absolute Basos (auto) Absolute Nucleated RBC Immature Gran % Neutrophils % Band Neutrophils % Lymphocytes % Monocytes % Eosinophils % Nucleated RBC % Abs Neuts (Manual) Abs Lymphs (Manual) Abs Monocytes (Manual) Absolute Eos (Manual) Dohle Bodies Normal RBC Morphology Hem Pathologist Commnt Sodium Potassium Chloride Carbon Dioxide Anion Gap BUN Creatinine Est GFR ( Amer) Est GFR (Non-Af Amer) BUN/Creatinine Ratio Glucose POC Glucose (mg/dL) 137 H 242 H 340 H Calcium Magnesium Total Bilirubin AST ALT Alkaline Phosphatase Total Protein Albumin Globulin Albumin/Globulin Ratio 07/05/18 07/05/18 09:22 09:22 WBC 5.9 RBC 4.54 Hgb 13.2 L Hct 40 L MCV 88 MCH 29 MCHC 33 RDW 15 Plt Count 268 MPV 7.5 Neut % (Auto) Lymph % (Auto) Karnes % (Auto) Eos % (Auto) Baso % (Auto) Absolute Neuts (auto) Absolute Lymphs (auto) Absolute Monos (auto) Absolute Eos (auto) Absolute Basos (auto) Absolute Nucleated RBC Immature Gran % Neutrophils % Band Neutrophils % Lymphocytes % Monocytes % Eosinophils % Nucleated RBC % Abs Neuts (Manual) Abs Lymphs (Manual) Abs Monocytes (Manual) Absolute Eos (Manual) Dohle Bodies Normal RBC Morphology Hem Pathologist Commnt Sodium 132 L Potassium 4.4 Chloride 104 Carbon Dioxide 8 L* Anion Gap 20 H BUN 11 Creatinine 1.27 H Est GFR ( Amer) 69.3 Est GFR (Non-Af Amer) 57.3 BUN/Creatinine Ratio 8.7 Glucose 369 H POC Glucose (mg/dL) Calcium 7.9 L Magnesium Total Bilirubin 0.90 AST 13 ALT 18 Alkaline Phosphatase 125 H Total Protein 6.0 L Albumin 3.2 Globulin 2.8 Albumin/Globulin Ratio 1.1 Assessment: []63 yo male with melanoma admitted with n/v/d which started acutely 2d prior to admission suspicious for infectious process d/t recently ill and acute onset, however infectious work-up appears negative and now improved over the last 24 hrs on steroids therefore 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 Will require fpc taper. In terms of infectious process he was septic appearing on 07/03 and now has rising bands, therefore we will cont. current abx. for now. Plan: []1. 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 SIRS: fever, hypotension, and tachycardia 07/03 concerning for sepsis from GI source - normal lactic acid, blood cultures negative, rising bands - stool work-up thus far negative - cont. Cefepime/Flagyl for at least 3 days with negative cultures (however rising bands will likely cont. overnight) 3. Thrush: recent steroids and DM - improved with clotrimazole trouches, IV Flagyl may help as well, try to decrease azoles NATHAN 4. Rash: suspect contact reaction of bleach negative cleaner on chair in clinic now spread to neck/back from linens - hydrocortisone cream BID - try to get extra rinses on sheets or bleach free - monitor 5. Melanoma - therapy on hold d/t need for high dose steroids, may alternate therapy as extended taper likely required - cont. xeroform dressing to toe 6. DM - cont basal/bolus regimen - lantus held yesterday with poor PO intake, will likely resume 30 u with steroids, if BG remain elevated today will add second lantus 15 u this evening and then start 30 u in AM tomorrow 7. Prolonged QTc: possibly medication induced on azoles and Zofran - d/c zofran, provide IV compazine PRN nausea - hasn't used any imodium thus far, hopeful he won't need it with steroids - repeat EKG tomorrow AM 8. Critical CO2: question error with draw d/t lack of symptoms, will repeat in 1 hr Dispo: hopeful for d/c 07/06/18 AM
[2018-07-05 10:18] LABS: Albumin 3.2 g/dL (3.2-5.2); Albumin/Globulin Ratio 1.1 (1-3); BUN/Creatinine Ratio 8.7 (8-20); Calcium 7.9 mg/dL (8.6-10.3); EGFR African American 69.3 (>60); EGFR Non-African American 57.3 (>60); Globulin 2.8 g/dL (2-4); Potassium 4.4 mmol/L (3.5-5.0); Total Bilirubin 0.9 mg/dL (0.2-1.0)
[2018-07-05 11:11] LABS: Immature Granulocytes 14 % (0-9); Lymphocytes % 8 %; Monocytes % 4 %; Myelocytes % 1 % (0-1); Neutrophil % 74 %
[2018-07-05 11:12] LABS: ABS Neutrophils 5.2 10^3/ul (1.5-7.7)
[2018-07-05 12:35] LABS: Albumin/Globulin Ratio 1.1 (1-3); BUN/Creatinine Ratio 9.3 (8-20); Calcium 7.7 mg/dL (8.6-10.3); EGFR African American 68.1 (>60); EGFR Non-African American 56.3 (>60); Globulin 2.7 g/dL (2-4); Potassium 4.6 mmol/L (3.5-5.0); Total Bilirubin 0.7 mg/dL (0.2-1.0); Total Protein 5.7 g/dL (6.4-8.9)
[2018-07-05] MEDS: Enoxaparin(*) 30 MG/0.3 ML SYR SUBCUT SCH (15:32)
[2018-07-05] MEDS ORDERED: Gadoteridol* (CONTRAST) 279.3 MG/ML 10 ML IV ONE (17:22)
[2018-07-06] MEDS: metroNIDAZOLE IV 500 MG/100ML* 500 MG/100 ML BAG IVPB SCH ×2 (01:29→09:53)
[2018-07-06] MEDS: methylPREDNISolone SOD 40 MG* 1 ML VIAL IV SCH (04:09)
[2018-07-06] MEDS: Clotrimazole TROCHE* 10 MG TROCHE PO SCH ×5 (06:01→21:00)
[2018-07-06] MEDS: Aspirin EC TAB* 81 MG TAB.EC PO SCH (08:28)
[2018-07-06] MEDS: Metoprolol Succinate XL TAB* 25 MG PO SCH ×2 (08:28→20:56)
[2018-07-06] MEDS: Vitamin THERAPEUTIC TAB PO SCH (08:28)
[2018-07-06] MEDS: Pantoprazole IV* 40 MG IV SCH (08:28)
[2018-07-06] MEDS: Cefepime 2 GM in Dextrose(*) 2 GM/50 ML BAG IV SCH (08:28)
[2018-07-06] MEDS: Hydrocortisone 1% CREAM* 30 GM TUBE TOPICAL SCH ×2 (08:29→20:56)
[2018-07-06] MEDS: Insulin GLARGINE(*) 1 UNITS UNIT SUBCUT SCH ×2 (08:36→12:20)
[2018-07-06] MEDS: Insulin LISPRO* 1 UNITS UNIT SUBCUT SCH ×4 (08:36→22:10)
[2018-07-06] MEDS: NS 0.9% 1000 ML** 1,000 ML IV SCH (08:38)
[2018-07-06 08:44] LABS: Hematocrit 37 % (42-52); Hemoglobin 12.6 g/dL (14.0-18.0); Mean Corpuscular HGB Conc 34 g/dL (31-36); Mean Corpuscular Hemoglobin 29 pg (27-31); Mean Corpuscular Volume 86 fL (80-94); Mean Platelet Volume 7.2 fL (7.4-10.4); Platelet Count 285 10^3/uL (150-450); Red Blood Count 4.32 10^6 /uL (4.18-5.48); Red Cell Distribution Width 15 % (10.5-15); White Blood Count 7.8 10^3/uL (3.5-10.8)
[2018-07-06 08:52] LABS: Albumin 3.1 g/dL (3.2-5.2); Albumin/Globulin Ratio 1.2 (1-3); BUN/Creatinine Ratio 12.6 (8-20); Calcium 7.8 mg/dL (8.6-10.3); EGFR Non-African American 66.9 (>60); Globulin 2.6 g/dL (2-4); Potassium 4.1 mmol/L (3.5-5.0); Total Bilirubin 0.7 mg/dL (0.2-1.0); Total Protein 5.7 g/dL (6.4-8.9)
[2018-07-06 09:15] LABS: ABS Lymphocytes 0.5 10^3/ul (1.0-4.8); ABS Monocytes 0.3 10^3/ul (0-0.8); Eosinophil % 0.2 %; Lymphocyte % 6.1 %
--- NOTE | 2018-07-06 10:39 | PN ---
Progress Note - Progress Note Date of Service: 07/06/18 SOAP: Subjective: [] Feels far better then on admission. No diarrhea for two days. Eating well. Blood sugars still increased. Anxious to go home, no changes in skin, toe still wrapped. Acetaminophen (Tylenol Tab*) 650 mg PO Q4H PRN PRN Reason: FEVER/PAIN Last Admin: 07/03/18 19:32 Dose: 650 mg Aspirin (Aspirin Ec Tab*) 81 mg PO QAM [facility] Last Admin: 07/06/18 08:28 Dose: 81 mg Clotrimazole (Mycelex Maryuri*) 10 mg PO FIVE TIMES DAILY [facility] Last Admin: 07/06/18 08:28 Dose: 10 mg Dextrose (D50w Syringe 50 Ml*) 12.5 gm IV PUSH .FOR FS < 60 - SS PRN PRN Reason: FS < 60 Last Admin: 07/03/18 12:30 Dose: 12.5 gm Enoxaparin Sodium (Lovenox(*)) 30 mg SUBCUT Q24H [facility] Last Admin: 07/05/18 15:32 Dose: 30 mg Hydrocortisone (Hytone Cream 1%*) 1 applic TOPICAL BID [facility] Last Admin: 07/06/18 08:29 Dose: 1 applic Insulin Glargine (Lantus(*)) 45 units SUBCUT Q24H [facility] Insulin Human Lispro (Humalog*) 0 units SUBCUT ACHS [facility]; Protocol Last Admin: 07/06/18 08:36 Dose: 10 units Loperamide HCl (Imodium Cap*) 2 mg PO .SEE DIRECTIONS PRN PRN Reason: DIARRHEA Metoprolol Succinate (Toprol Xl Tab*) 25 mg PO BID [facility] Last Admin: 07/06/18 08:28 Dose: 25 mg Multivitamins ([facility]agran Tab*) [facility] Last Admin: 07/06/18 08:28 Dose: 1 tab Oxycodone/Acetaminophen (Percocet 5/325 Tab*) 1 tab PO Q4H PRN PRN Reason: Pain Last Admin: 07/03/18 06:31 Dose: 1 tab Pantoprazole Sodium (Protonix Tab*) 40 mg PO DAILY [facility] Prednisone (Deltasone Tab*) 60 mg PO DAILY [facility] Objective: [] Vital Signs Temp Pulse Resp BP Pulse Ox 97.6 F 72 18 132/73 99 07/06/18 07:44 07/06/18 07:44 07/06/18 08:00 07/06/18 07:44 07/06/18 07:44 HEENT: OM moist, no thrush pale CTA RRR S2S2 +BS NT ND, negative exam Skin - melanoma in groin and toe is unchanged from admission, no new sites of disease. CT C/A/P - There is some increase in groin LAD, largest 1.3 [address] , otherwise not new disease. personally reviewed. MRI brain: non specific white matter change, no clear disease. Assessment: []63 yo male with melanoma admitted with n/v/d which started acutely 2d prior to admission, leukocytes positive and steroid responsive, consistent with grade 2 immune based colitis. He is improved on steroids but difficulty tolerating oral medication. Course also notable for dehydration and increased bicarbonate, improved today. Plan: []1. Colitis. - Try Prednisone 60 mg po daily, mixed in pudding and stop IV steroids. - Stop antibiotics 2. SIRS. Improved and no clear source. stopping antibiotics as noted above. 3. Thrush: recent steroids and DM - improved with clotrimazole trouches, try to decrease azoles NATHAN 4. Rash, alergic or immune. - hydrocortisone cream BID - try to get extra rinses on sheets or bleach free - monitor 5. Melanoma. Extensive discussion with patient and . Appears stable at this time and CT w/o new significant disease. Immunotherapy on hold for steroid taper , will then consider reduced dosed Ipi and full dosed Nivo. Expect slow steroid taper. 6. DM. Poorly controlled. - Lantus to 45 IU SQ daily and continue sliding scale. At home has been on Lantus alone. 7. Prolonged QTc: possibly medication induced on azoles and Zofran - d/c zofran, provide IV compazine PRN nausea - EKG with QTc of 495, decreased from 528. - d/c telemetry and check EKG tomorrow am. 8. CO2 improved suspect from dehydration and diarrhea. - Re-check in am. 9. Disp: goal of home over weekend and follow up next week.
[2018-07-06] MEDS: Enoxaparin(*) 30 MG/0.3 ML SYR SUBCUT SCH (12:20)
[2018-07-06] MEDS: predniSONE TAB* 20 MG PO SCH (12:21)
[2018-07-07] MEDS: Clotrimazole TROCHE* 10 MG TROCHE PO SCH (05:03)
[2018-07-07 06:48] LABS: Hematocrit 35 % (42-52); Hemoglobin 12.2 g/dL (14.0-18.0); Mean Corpuscular HGB Conc 35 g/dL (31-36); Mean Corpuscular Hemoglobin 29 pg (27-31); Mean Corpuscular Volume 83 fL (80-94); Mean Platelet Volume 6.9 fL (7.4-10.4); Platelet Count 291 10^3/uL (150-450); Red Blood Count 4.21 10^6 /uL (4.18-5.48); Red Cell Distribution Width 14 % (10.5-15); White Blood Count 7.1 10^3/uL (3.5-10.8)
[2018-07-07 07:05] LABS: Albumin/Globulin Ratio 1.3 (1-3); BUN/Creatinine Ratio 14.9 (8-20); Calcium 7.6 mg/dL (8.6-10.3); EGFR African American 107.2 (>60); EGFR Non-African American 88.6 (>60); Globulin 2.3 g/dL (2-4); Potassium 3.4 mmol/L (3.5-5.0); Total Bilirubin 0.7 mg/dL (0.2-1.0); Total Protein 5.3 g/dL (6.4-8.9)
[2018-07-07 07:59] VITALS: BP 132/78
[2018-07-07] MEDS: predniSONE TAB* 20 MG PO SCH (08:20)
[2018-07-07] MEDS: Metoprolol Succinate XL TAB* 25 MG PO SCH (08:21)
[2018-07-07] MEDS: Aspirin EC TAB* 81 MG TAB.EC PO SCH (08:22)
[2018-07-07] MEDS: Vitamin THERAPEUTIC TAB PO SCH (08:22)
[2018-07-07] MEDS: Insulin LISPRO* 1 UNITS UNIT SUBCUT SCH (08:22)
[2018-07-07] MEDS: Hydrocortisone 1% CREAM* 30 GM TUBE TOPICAL SCH (08:23)
[2018-07-07 08:59] LABS: Magnesium 1.9 mg/dL (1.9-2.7)
[2018-07-07] MEDS ORDERED: Pantoprazole TAB * 40 MG TAB PO SCH (09:00)
[2018-07-07] MEDS: Insulin GLARGINE(*) 1 UNITS UNIT SUBCUT SCH (11:10)
--- NOTE | 2018-07-07 14:02 | DS ---
CC: Dr. Castro * DISCHARGE SUMMARY: DATE OF ADMISSION: 07/02/18 DATE OF DISCHARGE: 07/07/18 PRIMARY CARE PROVIDER: Dr. Castro. PRIMARY ONCOLOGIST AND ATTENDING PHYSICIAN: Dr. Hugo Rangel.* (DICTATED BY MARIAM BRAND) DISCHARGING PROVIDER: MARIAM Brand PRIMARY DISCHARGE DIAGNOSES: 1. Immune-mediated enteritis/colitis. 2. Hyperglycemia in the setting of insulin-dependent diabetes. DISCHARGE MEDICATIONS: 1. Aspirin 81 mg p.o. daily. 2. Atorvastatin 40 mg p.o. daily. 3. Vitamin D3 2000 units p.o. daily. 4. Lantus 55 units subcu daily. 5. Metoprolol succinate 25 mg p.o. twice daily. 6. Multivitamin 1 capsule p.o. daily. 7. Ramipril 10 mg p.o. daily. 8. Tramadol 50 mg p.o. q.6 hours as needed for pain. 9. Imodium 2 mg with each loose bowel movement. 10. Prednisone 60 mg p.o. daily with plans to taper slowly according to symptoms, which will be assessed as an outpatient. HOSPITAL IMAGIN. CT chest, abdomen and pelvis with contrast, 07/02/18, demonstrates nonspecific 5 mm nodule in the right upper lobe of the lung concerning for possible metastasis. He has external iliac lymphadenopathy and right inguinal lymphadenopathy concerning for metastatic disease. 2. MRI brain, 07/05/18, demonstrates small area of increased signal intensity at the left white matter tracts. No discernible enhancements on post contrast images corresponding to this finding. No definite foci of malignancy or other abnormality. HOSPITAL COURSE: This is a 63-year-old gentleman with metastatic melanoma, currently treated with immunotherapy, who was recently hospitalized for an immune- mediated colitis, that responded quickly to high-dose steroids and was tapered over a period of approximately 2 weeks, subsequently developed recurrent nausea, vomiting, and diarrhea. The patient was unable to tolerate anything by mouth and was subsequently admitted to the hospital for further management. Initial labs showed a normal CBC. Sodium of 127, potassium of 3.3 , and some mild acute kidney injury with a creatinine of 1.56 with a baseline near 1. Initial total bilirubin was also elevated at 3.0. He was initially afebrile, but hypotensive with systolic pressures in the 90s. The patient initially received supportive care measures. His had presented with similar symptoms and this was initially presumed to be a viral gastroenteritis. The patient subsequently did not improve with supportive care measures alone and spiked a fever and became quite hypotensive. He received a fluid bolus and initiated antibiotics. Stool culture and blood cultures were collected. Stool was negative for C. diff and E. coli O157. Stool was positive for lactoferrin, but no other pathogens identified. Given the recent timing of his tapering from steroids and refractory nature from typical supportive care measures and the antibiotics, the patient was subsequently started on high-dose steroids, shortly after which his diarrhea began to improve. He did undergo restaging scans during this hospitalization, which showed questionable pulmonary metastases as well as inguinal and iliac lymphadenopathy also consistent with metastatic disease. MRI of the brain was negative for malignancy. DISPOSITION AND FOLLOWUP PLAN: The patient is being discharged to home in stable condition where he lives with his . He is discharged on 60 mg of prednisone daily and will taper slowly over the coming weeks. Follow up with Dr. Rangel next week for further outpatient evaluation and instructions on tapering of the prednisone. Immunotherapy is being held at this time. The patient is currently instructed to give himself 55 units of Lantus daily. This may need to be titrated further as he tapers his prednisone. MARIAM BRAND [id number]/[facility] #: [id number] MTDD
== END 2018-07-07 11:35 | disposition home or self-care (01) | DRG 249 ==
LOC: MED 14:50 → OBSVTOIN 07-03 09:29
PROVIDERS: ADMIT Internal Medicine Hematology & Oncology; ATTEND Internal Medicine Hematology & Oncology
DX: K52.1 Toxic gastroenteritis and colitis (principal); N17.9 Acute kidney failure, unspecified; C79.89 Secondary malignant neoplasm of other specified sites; C78.00 Secondary malignant neoplasm of unspecified lung; C77.9 Secondary and unspecified malignant neoplasm of lymph node, unspecified; R65.10 Systemic inflammatory response syndrome (SIRS) of non-infectious origin without acute organ dysfunction; E11.65 Type 2 diabetes mellitus with hyperglycemia; E11.40 Type 2 diabetes mellitus with diabetic neuropathy, unspecified; E78.5 Hyperlipidemia, unspecified; I95.9 Hypotension, unspecified; I10 Essential (primary) hypertension; Z66 Do not resuscitate; C43.9 Malignant melanoma of skin, unspecified; B37.9 Candidiasis, unspecified; T38.0X5A Adverse effect of glucocorticoids and synthetic analogues, initial encounter; T50.995A Adverse effect of other drugs, medicaments and biological substances, initial encounter; I45.81 Long QT syndrome; R21 Rash and other nonspecific skin eruption; Z79.82 Long term (current) use of aspirin; Z80.0 Family history of malignant neoplasm of digestive organs; Z88.0 Allergy status to penicillin; Y92.9 Unspecified place or not applicable; Z98.1 Arthrodesis status; Z79.4 Long term (current) use of insulin
CPT/HCPCS: 36415; 70553; 71260; 74177; 80053; 83605; 83630; 83735; 85025; 85027; 85060; 87040; 87045; 87046; 87493; 87899; 93005; 99223; 99232; 99233; 99239; A9270-GY; A9579; J0692; J1650; J2405; J2920; J3475; J3480; J3490; J7512; Q9967

== ENCOUNTER 2018-08-12 12:19 | Inpatient (IN) | payer OTHER ==
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
[2018-08-12] MEDS ORDERED: metroNIDAZOLE IV 500 MG/100ML* 500 MG/100 ML BAG IVPB ONE (12:45)
[2018-08-12] MEDS ORDERED: NS 0.9% 1000 ML** 1,000 ML IV.FLUID IV ONE (12:45)
--- NOTE | 2018-08-12 12:46 | ED ---
Altered Mental Status - HPI Summary HPI Summary: This patient is a 63 year old M brought to ED via EMS with a chief complaint of lethargy since three days ago. Patient is accompanied by his who reports that the patient has not been himself. 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 Since then, the melanoma has grown back up to the right calf into the groin. Patient received immunotherapy with the last treatment in June 2018. Patient had two weeks of diarrhea following the immunotherapy. Patient was admitted to [facility] at the beginning of July to rehydrate following his diarrhea. Patient had a course of remicade on July 13 which cleared the diarrhea up. He was being weaned off Prednisone. Patient is supposed to go back on immunotherapy this week. Per , patient slept all of and was tired all day. Patient slept all day yesterday as well. His states that at baseline he is alert and oriented and functional. The patient rates the pain 7/10 in severity. Symptoms aggravated by nothing. Symptoms alleviated by nothing. Patient reports subjective fever of 100.3, bleeding from toe, weakness, confusion. PMHx of DM, HTN, melanoma. PSHx of amputation of right big toe. Patient occasionally drinks alcohol, but does not use substances or tobacco. FHx of liver and pancreatic cancer. - History Of Current Complaint Chief Complaint: EDAltMentalStatus Stated Complaint: LETHARGY PER EMS Time Seen by Provider: 08/12/18 12:36 Hx Obtained From: Patient, Family/[employer] - Onset/Duration: Still Present, Gradually Timing: Lasting Days - Since 3 days ago Severity Initially: Moderate Severity Currently: Severe Character: Confusion, Lethargy Aggravating Factor(s): Nothing Alleviating Factor(s): Nothing Associated Signs And Symptoms: Positive: Fever, Weakness - Allergies/Home Medications Allergies/Adverse Reactions: Allergies Allergy/AdvReac Type Severity Reaction Status Date / Time Penicillins Allergy Unknown Verified 08/12/18 12:45 Reaction Details Home Medications: Home Medications Cholecalciferol (Vitamin D3) [Vitamin D-3] 2,000 unit PO DAILY 08/12/18 [ History Confirmed 08/12/18] Gabapentin CAP(*) [Neurontin 100 mg CAP(*)] 100 mg PO TID 08/12/18 [History Confirmed 08/12/18] Metoprolol Succinate XL TAB* [Toprol XL TAB*] 50 mg PO DAILY 08/12/18 [History Confirmed 08/12/18] Valacyclovir HCl [Valacyclovir] 1,000 mg PO DAILY 08/12/18 [History Confirmed ] PMH/Surg Hx/FS Hx/Imm Hx Previously Healthy: No Endocrine/Hematology History: Reports: Hx Diabetes Cardiovascular History: Reports: Hx Hypertension - ON MEDS Denies: Hx Pacemaker/ICD Respiratory History: Denies: Hx Asthma History: Denies: Hx Dialysis, Hx Renal Disease Musculoskeletal History: Reports: Hx Arthritis - IN BOTH HANDS Sensory History: Reports: Hx Contacts or Glasses - Reading glasses Denies: Hx Hearing Aid Opthamlomology History: Reports: Hx Contacts or Glasses - Reading glasses Psychiatric History: Denies: Hx Panic Disorder - Cancer History Cancer Type, Location and Year: MELANOMA AND SEVERAL POSITIVE LYMPH NODES IN GROIN Hx Chemotherapy: Yes - KYTRUDIA Hx Radiation Therapy: No - Surgical History Surgery Procedure, Year, and Place: FUSION C SPINE X 2 [facility]. AMPUTATION RT GRT TOE AND LYMPH NODES FROM [place] 01/2018 Hx Anesthesia Reactions: No Infectious Disease History: No Infectious Disease History: Denies: Traveled Outside the [place] in Last 30 Days - Family History Known Family History: Positive: Other - Liver cancer (mother), pancreatic cancer (brother) - Social History Alcohol Use: Occasionally Alcohol Amount: 2 BEERS A MONTH Hx Substance Use: No Substance Use Type: Reports: None Hx Tobacco Use: No Smoking Status (MU): Never Smoked Tobacco Have You Smoked in the Last Year: No Review of Systems Positive: Fever Skin: Other - Bleeding from right big toe Neurological: Other - Confused Positive: Weakness All Other Systems Reviewed And Are Negative: Yes Physical Exam - Summary Physical Exam Summary: VITAL SIGNS: Reviewed. GENERAL: Patient is a well-developed and nourished male who is lying comfortable in the stretcher. Patient is not in any acute respiratory distress. HEAD AND FACE: No signs of trauma. No ecchymosis, hematomas or skull depressions. No sinus tenderness. EYES: PERRLA, EOMI x 2, No injected conjunctiva, no nystagmus. EARS: Hearing grossly intact. Ear canals and tympanic membranes are within normal limits. MOUTH: Oropharynx within normal limits. NECK: Supple, trachea is midline, no adenopathy, no JVD, no carotid bruit, no c- spine tenderness, neck with full ROM. CHEST: Symmetric, no tenderness at palpation LUNGS: Clear to auscultation bilaterally. No wheezing or crackles. CVS: Regular rate and rhythm, S1 and S2 present, no murmurs or gallops appreciated. ABDOMEN: Soft, non-tender. No signs of distention. No rebound no guarding, and no masses palpated. Bowel sounds are normal. EXTREMITIES: right big toe has necrotic areas, cauliflower lesion, and dried blood. NEURO: alert but not oriented. SKIN: Dry and warm. GCS: 15 Triage Information Reviewed: Yes Vital Signs On Initial Exam: Initial Vitals Temp Pulse Resp BP Pulse Ox 98.6 F 126 34 108/80 94 08/12/18 12:27 08/12/18 12:27 08/12/18 12:27 08/12/18 12:27 08/12/18 12:27 Vital Signs Reviewed: Yes Diagnostics - Vital Signs Vital Signs Temp Pulse Resp BP Pulse Ox 08/12/18 12:27 98.6 F 126 34 108/80 94 - Laboratory Result Diagrams: 08/13/18 06:09 08/13/18 06:09 Lab Statement: Any lab studies that have been ordered have been reviewed, and results considered in the medical decision making process. - Radiology CXR Radiology Interpretation Completed By: Radiologist Summary of Radiographic Findings: NO EVIDENCE FOR ACTIVE CARDIOPULMONARY DISEASE. Dr. Daly has reviewed this radiology report. - CT Brain CT Interpretation Completed By: Radiologist Summary of CT Findings: MULTIPLE NEW MASSES CONTAINING HEMORRHAGE SUSPICIOUS FOR HEMORRHAGIC METASTASES CAUSING SIGNIFICANT MASS EFFECT. RECOMMEND AN MRI OF THE BRAIN WITHOUT AND WITH CONTRAST. Dr. Daly has reviewed this radiology report. - EKG 1256 Cardiac Rate: Tachycardia EKG Rhythm: Sinus Tachycardia ST Segment: Normal EKG Comparison: No Significant Change - Similar to previous EKG taken 07/06/2018 Summary of EKG Findings: Sinus tachycardia at 125 BPM, no ST elevations. Similar to previous EKG taken 07/06/2018. Altered Mental Statu Course/Dx - Course Assessment/Plan: This patient is a 63 year old M brought to ED via EMS with a chief complaint of lethargy since three days ago. Patient is accompanied by his who reports that the patient has not been himself. Patient has melanoma on his right big toe, which was amputated on January 11, 2018. Since then, the melanoma has grown back up to the right calf into the groin. Patient received immunotherapy with the last treatment in June 2018. Patient had two weeks of diarrhea following the immunotherapy. Patient was admitted to [facility] at the beginning of July to rehydrate following his diarrhea. Patient had a course of remicade on July 13 which cleared the diarrhea up. He was being weaned off Prednisone. Patient is supposed to go back on immunotherapy this week. Per , patient slept all of 08/10/18 and was tired all day. Patient slept all day yesterday as well. His states that at baseline he is alert and oriented and functional. The patient rates the pain 7/10 in severity. Symptoms aggravated by nothing. Symptoms alleviated by nothing. Patient reports subjective fever of 100.3, bleeding from toe, weakness, confusion. PMHx of DM, HTN, melanoma. PSHx of amputation of right big toe. Patient occasionally drinks alcohol, but does not use substances or tobacco. FHx of liver and pancreatic cancer. In the ED course the patient had concern for sepsis therefore the patient was given IV fluids 30 ccs per KG, started on vancomycin, ciprofloxacin , and metronidazole as recommended by the [facility]. Test results without any significant abnormality except for WBCs of 14.3, hemoglobin 13.7, hematocrit is 40, fibrinogens 842, sodium 134, chloride 98, carbon dioxide is 21, anion gap is 15, glucose 359, total bili recommends 2.6, alkaline phosphatase 179, CRP is 192. CXR IMPRESSION: NO EVIDENCE FOR ACTIVE CARDIOPULMONARY DISEASE. Head CT IMPRESSION: MULTIPLE NEW MASSES CONTAINING HEMORRHAGE SUSPICIOUS FOR HEMORRHAGIC METASTASES CAUSING SIGNIFICANT MASS EFFECT. RECOMMEND AN MRI OF THE BRAIN WITHOUT AND WITH CONTRAST. Patient was given Decadron 10 g IV. MRI of the brain was ordered. I discussed the case with Dr. Marroquin and he will consult for this patient. I also discussed my physical exam and findings with Dr. Rangel. The patient to be admitted to the hospital services and he will consult for the patient tomorrow morning. He also recommends Decadron 4 mg 3 times a day. I discussed my physical exam and findings with Dr. Cormier from the hospital services was accepted the patient for admission. The patient is hemodynamically stable. The patient is alert but not oriented. - Diagnoses Provider Diagnoses: Brain metastasis, Toe infection, Altered consciousness - Provider Notifications Discussed Care Of Patient With: Víctor Conde Time Discussed With Above Provider: 13:40 Instructed by Provider To: Other - Discussed patient case with Dr. Conde, radiologist, who recommended a brain MRI. At 1411 discussed patient case with Dr. Marroquin, neurosurgeon, who will consult the patient. At [address] Rangel, oncologist, who recommended admission to the hospital and will see the patient tomorrow morning. Patient might need radiation therapy. At [address] Cormier, hospitalist, who accepted the patient for admission to [facility]. - Critical Care Time Critical Care Time: 30-74 min - 30 min Discharge - Sign-Out/Discharge Documenting (check all that apply): Patient Departure - Admit Patient Received Moderate/Deep Sedation with Procedure: No - Discharge Plan Condition: Fair Disposition: ADMITTED TO [facility] - Billing Disposition and Condition Condition: FAIR Disposition: Admitted to [facility] - Attestation Statements Document Initiated by Jing: Yes Documenting Scribe: Arley Sims Provider For Whom Jing is Documenting (Include Credential): Luis Antonio Daly MD Scribe Attestation: I, Arley Sims, scribed for Luis Antonio Daly MD on 08/13/18 at 1011. Scribe Documentation Reviewed: Yes Provider Attestation: The documentation as recorded by the Arley arcos accurately reflects the service I personally performed and the decisions made by me, Luis Antonio Daly MD Status of Scribe Document: Viewed
[2018-08-12] MEDS ORDERED: Vancomycin(*) 1,000 MG in NS 0.9% 250 ML* 250 ML IVPB ONE (12:48)
[2018-08-12] MEDS ORDERED: Ciprofloxacin 400MG IVPREMIX(* 400 MG/200 ML BAG IVPB ONE (12:49)
[2018-08-12 13:13] LABS: ABS Basophils 0.1 10^3/ul (0-0.2); ABS Eosinophils 0.1 10^3/ul (0-0.6); ABS Lymphocytes 2.2 10^3/ul (1.0-4.8); ABS Monocytes 1.2 10^3/ul (0-0.8); ABS Neutrophils 10.6 10^3/ul (1.5-7.7); Eosinophil % 0.8 %; Hematocrit 40 % (42-52); Hemoglobin 13.7 g/dL (14.0-18.0); Lymphocyte % 15.7 %; Mean Corpuscular HGB Conc 34 g/dL (31-36); Mean Corpuscular Hemoglobin 31 pg (27-31); Mean Corpuscular Volume 91 fL (80-94); Mean Platelet Volume 7.2 fL (7.4-10.4); Nucleated Red Blood Cells % 0.1; Platelet Count 227 10^3/uL (150-450); Red Blood Count 4.44 10^6 /uL (4.18-5.48); Red Cell Distribution Width 18 % (10-15); White Blood Count 14.3 10^3/uL (3.5-10.8)
[2018-08-12 13:29] LABS: Albumin 3.8 g/dL (3.2-5.2); Albumin/Globulin Ratio 1.2 (1-3); BUN/Creatinine Ratio 10.6 (8-20); C Reactive Protein 192.91 mg/L (<8.01); EGFR African American 87.3 (>60); EGFR Non-African American 72.1 (>60); Globulin 3.2 g/dL (2-4); Total Bilirubin 2.6 mg/dL (0.2-1.0)
[2018-08-12 13:31] LABS: Troponin I 0.03 ng/mL (<0.04)
[2018-08-12] MEDS ORDERED: Dexamethasone IV* 4 MG/ML 1 ML (4 MG) IV SLOW PU ONE (13:34)
[2018-08-12 13:55] LABS: Activated Partial Thrombo Time 36.2 seconds (26.0-38.0); Fibrinogen 842.3 mg/dL (110.8-404.3); INR 1.13 (0.82-1.09)
[2018-08-12 14:44] LABS: Erythrocyte Sed Rate 81 mm/Hr (0-19)
[2018-08-12 15:13] LABS: Urine Appearance Clear; Urine Bilirubin Negative (Negative); Urine Blood Negative (Negative); Urine Color Yellow; Urine Glucose 3+(>=500 mg/dL) (Negative); Urine Ketones 2+ (Negative); Urine Nitrite Negative (Negative); Urine Protein Negative (Negative); Urine Specific Gravity 1.025 (1.010-1.030); Urine Urobilinogen Negative (Negative)
[2018-08-12] MEDS ORDERED: Gadoteridol* (CONTRAST) 279.3 MG/ML 10 ML IV ONE (15:19)
[2018-08-12] MEDS ORDERED: Al Hydrox/Mg Hydrox/Simet LIQ* 30 ML UDC PO PRN (16:08)
[2018-08-12] MEDS ORDERED: Acetaminophen TAB* 325 MG PO PRN (16:08)
[2018-08-12] MEDS ORDERED: Dextrose 50% Syringe 50 ML* 25 GM/50 ML SYRINGE IV PUSH PRN (16:10)
[2018-08-12] MEDS ORDERED: Loperamide CAP* 2 MG PO PRN (16:11)
[2018-08-12] MEDS ORDERED: levETIRAcetam 1000MG IVPREMIX* 1,000 MG/100 ML BAG IVPB ONE (16:25)
[2018-08-12] MEDS ORDERED: Insulin GLARGINE(*) 1 UNITS UNIT SUBCUT ONE (16:25)
[2018-08-12] MEDS ORDERED: Dexamethasone IV* 4 MG in NS 0.9% 50 ML* 50 ML IVPB SCH (17:00)
--- NOTE | 2018-08-12 17:37 | HP ---
CC: Dr. Castro; Dr. Rangel; Dr. Marroquin * HISTORY AND PHYSICAL: DATE OF ADMISSION: 08/12/18 PRIMARY CARE PROVIDER: Dr. Castro. CHIEF COMPLAINT: Lethargy. HISTORY OF PRESENT ILLNESS: Mr. Roman is a 63-year-old male with history of invasive melanoma of the right great toe with residual localized disease that was treated with immunotherapy, stopped a month ago when the patient developed nausea and diarrhea thought to be related to maybe as a side effect of immunotherapy. The patient's brought him into the hospital today after he had been sleeping almost continuously for 3 days. He had been eating less and his gait has been unsteady. The patient's also noted that he had droopy left side of his face. The CAT scan of the brain obtained today showed multiple bleeding areas, likely bleeding within brain metastases. The patient is going to be admitted to the intensive care unit with a diagnosis of brain metastasis and altered mental status. PAST MEDICAL HISTORY: 1. History of right great toe melanoma, status post excision of the distal part of the right great toe with positive margins and residual disease, treated with immunotherapy up until July 2017. 2. Diabetes. 3. Hypertension. 4. Diabetic neuropathy. 5. Cervical disk disease and 2 neck fusions in the past. PAST SURGICAL HISTORY: 1. History of right knee surgery in the past. 2. Status post umbilical hernia repair. MEDICATIONS: Outpatient medications include: 1. Valacyclovir 1000 mg daily. 2. Vitamin D3 2000 units daily. 3. Gabapentin 100 mg 3 times a day. 4. Prednisone 10 mg daily. 5. Ramipril 10 mg daily. 6. Multivitamin 1 tablet daily. 7. Toprol-XL 50 mg daily. 8. Loperamide on a p.r.n. basis. 9. Insulin Lantus 55 units in the morning. 10. Lipitor 40 mg daily. 11. Aspirin 81 mg daily. ALLERGIES: Include PENICILLIN. FAMILY HISTORY: Positive for mother with liver cancer, at the age of 70 and brother with pancreatic cancer, at the age of 68. SOCIAL HISTORY: The patient lives with his domestic partner, female, Josr Galeana, who is his surrogate. 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 REVIEW OF SYSTEMS: Please see history of present illness. The patient is a very poor historian. He is awake, but really does not contribute to conversation and is unable to give me any specific information. PHYSICAL EXAMINATION GENERAL: The patient is a pleasant 63-year-old male, who is in no acute distress. The patient knows that the year is 2018, but he is unable to give me the season or the month. He remembers that he is 63 years old and knows that he is in the hospital. He does not remember his date of . VITAL SIGNS: Blood pressure of 105/72, heart rate of 118 and regular, respiratory rate 25, oxygen saturation 93% on room air, temperature of 98.6. HEENT: Head: Atraumatic, normocephalic. Eyes: Pupils are equal, reactive to light and accommodation. Oropharynx is clear. Mucosa moist. NECK: Supple. No JVD. No bruits bilaterally. RESPIRATORY: Clear to auscultation bilaterally. CARDIOVASCULAR: Regular rate and rhythm. No murmur. ABDOMEN: Soft, nontender. Bowel sounds are present in all 4 quadrants. EXTREMITIES: There is no edema. Pulses are +2 bilaterally. There is no clubbing or cyanosis. NEUROLOGIC: The patient has flattening of the left nasolabial fold, but otherwise cranial nerves II through XII are grossly intact. Motor strength is 5 /5 bilaterally. Gait was not evaluated. PSYCHIATRIC: The patient appears to be withdrawn. I am not sure if he understands the gravity of situation. He is disoriented. SKIN: On evaluation of the skin, the patient is status post amputation of the distal tip of his right great toe. The remaining right great toe is enlarged with fungating mass on the dorsum of the toe. The area affected is approximately 5 x 5 cm. Furthermore, on the distal anterior aspect of his right lower extremity, he has multiple areas of raised fleshy skin lesions that are round and surrounding area of approximately 20 cm x 10 cm. DIAGNOSTIC STUDIES/LAB DATA: Laboratory data showed white blood cell count of 14.3, hemoglobin of 13.7, hematocrit of 40, and platelets of 227,000. Sodium of 134, potassium 4.0, chloride 98, carbon dioxide 21, BUN 11, creatinine was 1.04. Liver function tests showed bilirubin total of 2.6, AST of 19, ALT of 30, alkaline phosphatase of 179. C-reactive protein of 192. Glucose was 359. Urinalysis showed +2 ketones and +[address], impression: "Multiple new masses containing hemorrhage suspicious for hemorrhagic metastases causing significant mass effects. Recommend an MRI of the brain without and with contrast." The patient's portable chest x-ray, impression: "No evidence for acute cardiopulmonary disease." The patient's MRI is pending at the time of dictation. ASSESSMENT AND PLAN: A 63-year-old male with history of melanoma, who presents with lethargy and was found to have multiple new brain masses. Of note, the patient's MRI obtained at the beginning of July 2018 was basically unremarkable. At this point, the patient is going to be admitted in the ICU on neuro checks every [address] the patient on Keppra for seizure prophylaxis and on Decadron IV for edema. The patient is also going to be placed on Protonix daily p.o. while on IV steroids for GI protection. The patient has leukocytosis and is tachycardic, but so far no source of infection was noted. I suspect the abnormalities may be related to dehydration and the brain metastases. At this point, the patient will be treated with metronidazole, ciprofloxacin, and vancomycin in the emergency department. At this point, I will hold off antibiotics and will not continue them. For the patient's uncontrolled diabetes, the patient is going to be placed on insulin sliding scale and continued on his Lantus. For his hypertension, his outpatient medications are going to be continued. For DVT prophylaxis, anticoagulation is contraindicated due to bleeding in his brain. I will hold the patient's aspirin. He is going to be placed on SCDs. The patient's code status is full. His surrogate is his . The case was discussed with Dr. Rangel, the patient's oncologist, who will see the patient in the morning. TIME SPENT: Approximately 75 minutes were spent on admission of this patient, more than half that time was spent [id number] with the patient during the interview and physical exam. [id number]/[facility] #: [id number] PAOLA
[2018-08-12] MEDS: Dexamethasone IV* 4 MG/ML 1 ML (4 MG) IV SLOW PU SCH (17:57)
[2018-08-12] MEDS: Insulin LISPRO* 1 UNITS UNIT SUBCUT SCH ×2 (18:12→21:19)
[2018-08-12] MEDS: NS 0.9% 1000 ML** 1,000 ML IV SCH (18:22)
[2018-08-12] MEDS ORDERED: Morphine 4 MG/ML VIAL (1 ml) 4 MG/ML VIAL IV PRN (19:34)
[2018-08-12] MEDS ORDERED: oxyCODONE/Acetamin 5/325 MG* TAB PO PRN (19:34)
[2018-08-12] MEDS: Docusate CAP* 100 MG PO SCH (21:19)
[2018-08-12] MEDS: Gabapentin CAP(*) 100 MG PO SCH (21:19)
[2018-08-12] MEDS: levETIRAcetam TAB* 500 MG PO SCH (21:19)
[2018-08-13] MEDS: Dexamethasone IV* 4 MG/ML 1 ML (4 MG) IV SLOW PU SCH ×3 (01:30→18:58)
[2018-08-13] MEDS: NS 0.9% 1000 ML** 1,000 ML IV SCH (05:53)
[2018-08-13 06:22] LABS: ABS Basophils 0.1 10^3/ul (0-0.2); ABS Lymphocytes 1.1 10^3/ul (1.0-4.8); ABS Monocytes 0.2 10^3/ul (0-0.8); ABS Neutrophils 11.3 10^3/ul (1.5-7.7); Hematocrit 36 % (42-52); Lymphocyte % 8.6 %; Mean Corpuscular HGB Conc 34 g/dL (31-36); Mean Corpuscular Hemoglobin 31 pg (27-31); Mean Corpuscular Volume 90 fL (80-94); Mean Platelet Volume 7.4 fL (7.4-10.4); Nucleated Red Blood Cells % 0.1; Platelet Count 205 10^3/uL (150-450); Red Blood Count 3.93 10^6 /uL (4.18-5.48); Red Cell Distribution Width 17 % (10-15); White Blood Count 12.7 10^3/uL (3.5-10.8)
[2018-08-13 06:40] LABS: Albumin 3.5 g/dL (3.2-5.2); Albumin/Globulin Ratio 1.2 (1-3); BUN/Creatinine Ratio 18.7 (8-20); Calcium 8.3 mg/dL (8.6-10.3); EGFR African American 127.3 (>60); EGFR Non-African American 105.2 (>60); Indirect Bilirubin 0.9 mg/dL (0.3-1.0); Potassium 4.4 mmol/L (3.5-5.0); Total Bilirubin 1.1 mg/dL (0.2-1.0); Total Protein 6.5 g/dL (6.4-8.9)
[2018-08-13] MEDS: Metoprolol Succinate XL TAB* 50 MG PO SCH (08:30)
[2018-08-13] MEDS: Pantoprazole TAB * 40 MG TAB PO SCH (08:33)
[2018-08-13] MEDS: Atorvastatin* 40 MG TAB PO SCH (08:33)
[2018-08-13] MEDS: Gabapentin CAP(*) 100 MG PO SCH ×3 (08:33→21:22)
[2018-08-13] MEDS: levETIRAcetam TAB* 500 MG PO SCH ×2 (08:34→21:22)
[2018-08-13] MEDS: Insulin GLARGINE(*) 1 UNITS UNIT SUBCUT SCH (08:34)
[2018-08-13] MEDS: Docusate CAP* 100 MG PO SCH ×2 (08:35→21:22)
--- NOTE | 2018-08-13 09:58 | PN ---
Progress Note - Progress Note Date of Service: 08/13/18 SOAP: Subjective: []Feels better today a little. Symptoms occurred over 3 days and came on quickly. Has not eating x 2 days but is hungry now. No STOVALL, not sure how much steroids have helped Acetaminophen (Tylenol Tab*) 650 mg PO Q4H PRN PRN Reason: FEVER/PAIN Al Hydrox/Mg Hydrox/Simethicone (Maalox Plus*) 30 ml PO Q6H PRN PRN Reason: INDIGESTION Atorvastatin Calcium (Lipitor*) 40 mg PO QAM [facility] Last Admin: 08/13/18 08:33 Dose: 40 mg Dexamethasone Sodium Phosphate (Decadron Iv*) 4 mg IV SLOW PU Q8H [facility] Last Admin: 08/13/18 08:35 Dose: 4 mg Dextrose (D50w Syringe 50 Ml*) 12.5 gm IV PUSH .FOR FS < 60 - SS PRN PRN Reason: FS < 60 Docusate Sodium (Colace Cap*) 100 mg PO BID [facility] Last Admin: 08/13/18 08:35 Dose: Not Given Gabapentin (Neurontin Cap(*)) 100 mg PO TID [facility] Last Admin: 08/13/18 08:33 Dose: 100 mg Sodium Chloride (Ns 0.9% 1000 Ml) 1,000 mls @ 75 mls/hr IV PER RATE [facility] Last Admin: 08/13/18 05:53 Dose: 75 mls/hr Insulin Glargine (Lantus(*)) 55 units SUBCUT QAM [facility] Last Admin: 08/13/18 08:34 Dose: 55 units Insulin Human Lispro (Humalog*) 0 units SUBCUT Q6HR [facility]; Protocol Levetiracetam (Keppra Tab*) 500 mg PO BID [facility] Last Admin: 08/13/18 08:34 Dose: 500 mg Loperamide HCl (Imodium Cap*) 2 mg PO .SEE DIRECTIONS PRN PRN Reason: DIARRHEA Metoprolol Succinate (Toprol Xl Tab*) 50 mg PO DAILY [facility] Last Admin: 08/13/18 08:30 Dose: 50 mg Morphine Sulfate (Morphine 4 Mg/Ml Vial (1 Ml)) 1 mg IV Q4H PRN PRN Reason: PAIN - SEVERE Oxycodone/Acetaminophen (Percocet 5/325 Tab*) 1 tab PO Q4H PRN PRN Reason: PAIN - MODERATE Pantoprazole Sodium (Protonix Tab*) 40 mg PO DAILY [facility] Last Admin: 08/13/18 08:33 Dose: 40 mg Objective: [] Vital Signs Temp Pulse Resp BP Pulse Ox 97.9 F 100 21 117/76 96 08/13/18 07:00 08/13/18 08:00 08/13/18 08:00 08/13/18 08:00 08/13/18 08:00 HEENT: OM moist, no lesions. No thrush Neuro CN 2-12 intact and responsive to questions. Some weakness on Left side 4/ 5 normal on right. laying in bed, did not check balance, gait. CTA RRR S1S2 +BS NT ND, no HSM skin - no change in disease since last week, progression over past month Ext R toe slow growth in disease, melanoma covering toe. MRI brain - reviewed and the dominant lesion is RFL, there are multiple other sites of metastasis. The largest lesion outide RFL is 2.1 cm. Edema. Assessment: []63 year old metastatic melanoma, brief response to Ipi/Nivo then stopped for colitis and on steroid taper. New progression of AVIONICS INSTALLER disease, large 5 cm RF lesion and multiple smaller sites of disease. Case d/w NSG, patient and . He will from melanoma, goal of therapy is palliative. Best case scenario will be control of AVIONICS INSTALLER disease and then re-starting immunotherpy. I do not know if this will happen. Therapy for AVIONICS INSTALLER disease will be surgery for RFL lesion followed by XRT to remaining disease. We discussed his goals and QOL, at this time I feel it is appropriate to treat aggressively if progression is progression is predominantly in AVIONICS INSTALLER. Plan: []1. CT C/A/P. If minimal other disease plan surgery. 2. DM. Will go to diabetic diet. Dex will increase sugars. - Lantus and intermediate dose ISS 3. Cutaneous disease. Continue to manage toe lesion. 4. Will consider TMZ after surgery and with XRT while he is on steroids. Best case memorial designer outcome will be to re-start immunotherpy. 5. Prognosis discussed with but not code status, would treat seizure at this time including with intubation. 6. DVT. prophylaxis on hold for AVIONICS INSTALLER hemorrhage. ICS
[2018-08-13] MEDS ORDERED: Iodixanol* (CONTRAST) 320 MG/ML 100 ML SDV IV ONE (13:18)
[2018-08-13] MEDS: Insulin LISPRO* 1 UNITS UNIT SUBCUT SCH ×3 (14:22→21:46)
[2018-08-13] MEDS: Magnesium Sulfate CRYSTAL* 454 GM BOX TOPICAL SCH (21:22)
--- NOTE | 2018-08-14 01:41 | PN ---
Progress Note - Progress Note Date of Service: 08/13/18 SOAP: Subjective: []Patient was seen earlier at date of note. In ICU. No events ON Objective: []VSS AAOx3 GEOVANNA, CN II-XII grossly intact Motor 4-5/5 all extremities Sensory grossly intact to light touc Assessment: [] 63 yom metastatic melanoma, multiple brain lesions Plan: []Monitor VS, Neurochecks Discussed with Dr Matt regarding patient's condition and prognosis and possible benefit from rt frontal tumor resection CT of C/A/P completed today Discussed with patient possibility of surgical intervention for resection of Rt Frontal lesion Expectations, limitations and possible complications were discussed in details. Patient would like to take some time to think about his options and would like to consider transfer to [facility] other facility. Will discuss again with patient in am and finalize plan. Appreciate IM, oncology care.
[2018-08-14] MEDS: Dexamethasone IV* 4 MG/ML 1 ML (4 MG) IV SLOW PU SCH ×3 (01:57→16:59)
[2018-08-14 04:14] LABS: ABS Basophils 0.1 10^3/ul (0-0.2); ABS Monocytes 0.5 10^3/ul (0-0.8); ABS Neutrophils 18.1 10^3/ul (1.5-7.7); Hematocrit 35 % (42-52); Hemoglobin 11.6 g/dL (14.0-18.0); Lymphocyte % 5.2 %; Mean Corpuscular HGB Conc 33 g/dL (31-36); Mean Corpuscular Hemoglobin 31 pg (27-31); Mean Corpuscular Volume 92 fL (80-94); Mean Platelet Volume 7.4 fL (7.4-10.4); Platelet Count 236 10^3/uL (150-450); Red Cell Distribution Width 18 % (10-15); White Blood Count 19.8 10^3/uL (3.5-10.8)
[2018-08-14 04:29] LABS: Albumin 3.5 g/dL (3.2-5.2); Albumin/Globulin Ratio 1.2 (1-3); Calcium 8.4 mg/dL (8.6-10.3); EGFR African American 110.2 (>60); Globulin 2.9 g/dL (2-4); Potassium 4.4 mmol/L (3.5-5.0); Total Bilirubin 0.8 mg/dL (0.2-1.0); Total Protein 6.4 g/dL (6.4-8.9)
--- NOTE | 2018-08-14 05:25 | CONS ---
CONSULTATION REPORT: DATE OF CONSULT: 08/12/18 HISTORY OF PRESENT ILLNESS: The patient is a very pleasant 63-year-old gentleman with a history of melanoma of the right great toe that was treated with immunotherapy, who was brought to the emergency room for altered mental status, requested to see the patient by emergency room team. We got the CT scan of the brain and MRI findings consistent with multiple brain metastases. The patient was seen in the ICU after being admitted by the hospitalist. The patient reports that he is feeling well. He has no headache, he has no nausea, no vomiting, no seizures. He denies any weakness, numbness, or tingling of his extremities. He was able to ambulate. He denies urinary or GI incontinence. 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 PAST MEDICAL HISTORY: Melanoma, status post amputation of the right great toe; diabetes; hypertension; diabetic neuropathy. PAST SURGICAL HISTORY: Two neck fusions, right knee surgery, umbilical hernia repair, amputation of right big toe. MEDICATIONS: The patient was on: 1. Valacyclovir. 2. Vitamin D3. 3. Gabapentin. 4. Prednisone. 5. Ramipril. 6. Multivitamin. 7. Toprol. 8. Loperamide. 9. Insulin. 10. Lipitor. 11. Aspirin. ALLERGIES: PENICILLIN. FAMILY HISTORY: Liver cancer, pancreatic cancer. SOCIAL HISTORY: Tobacco negative, alcohol negative, recreational drug use negative. PHYSICAL EXAM: The patient is not in acute distress. He is awake, alert, and oriented x3. His pupils are equal and reactive. Cranial nerves II through XII are grossly intact. Motor: 4-5/5 in all extremities. No pronator drift. The patient does have amputation of the right big toe with necrosed tissue, possibly melanoma. Also, multiple lesions in the right lower extremity, in the anterior [place] area as well as the right inguinal area. Sensory grossly intact to light touch. Deep tendon reflexes +1 bilaterally. No clonus, no Babinski' s. Myesha's is negative. Straight leg raise negative in sitting position. DIAGNOSTIC STUDIES: The patient had CT scan of the brain, revealed multiple hemorrhagic lesions with the largest on the right frontal lobe. MRI: The patient has MRI of the brain with similar lesions, with multiple brain lesions with the largest being on the right frontal lobe with mass effect. ASSESSMENT: This is a very pleasant 63-year-old male with history of melanoma with MRI findings suggestive of multiple brain metastases. PLAN: The patient was admitted to the ICU by the hospitalist team. The patient was placed on Keppra and was placed on prednisone. The patient was followed by Dr. Rangel. The patient had elevated white blood cell count of 14, 300 with C-reactive protein of 192. Thorough workup was performed to exclude any infectious sources. The extend of the tumor burden will be evaluated by Dr. Rangel and patient was scheduled to have a CT scan of chest, abdomen and pelvis. Discussed with the patient possibility of surgical intervention, including risks , benefits, expectations, limitation and possible complications. The patient will be in agreement with possible surgical intervention. Thank you for allowing us to participate in the care of this patient. Please do not hesitate to contact our office in case you have any questions or concerns regarding the care of this patient. Steffi Marroquin MD [id number]/[facility] #: [id number] MTDD
[2018-08-14] MEDS ORDERED: Dextrose 50% Syringe 50 ML* 25 GM/50 ML SYRINGE IV PUSH PRN (06:08)
[2018-08-14] MEDS ORDERED: Insulin LISPRO* 1 UNITS UNIT SUBCUT ONE (06:08)
--- NOTE | 2018-08-14 06:09 | PN ---
Progress Note - Progress Note Date of Service: 08/14/18 Note: Glucose: 357, Lispro 12 units ordered
[2018-08-14] MEDS: levETIRAcetam TAB* 500 MG PO SCH ×2 (08:50→20:44)
[2018-08-14] MEDS: Insulin LISPRO* 1 UNITS UNIT SUBCUT SCH ×5 (08:50→21:04)
[2018-08-14] MEDS: Docusate CAP* 100 MG PO SCH ×3 (08:50→20:44)
[2018-08-14] MEDS: Atorvastatin* 40 MG TAB PO SCH (08:50)
[2018-08-14] MEDS: Pantoprazole TAB * 40 MG TAB PO SCH (08:50)
[2018-08-14] MEDS: Gabapentin CAP(*) 100 MG PO SCH ×3 (08:50→20:44)
[2018-08-14] MEDS: Metoprolol Succinate XL TAB* 50 MG PO SCH (08:50)
[2018-08-14] MEDS: Insulin GLARGINE(*) 1 UNITS UNIT SUBCUT SCH (08:50)
[2018-08-14] MEDS: NS 0.9% 1000 ML** 1,000 ML IV SCH ×2 (09:49→20:15)
[2018-08-14] MEDS: Magnesium Sulfate CRYSTAL* 454 GM BOX TOPICAL SCH (09:50)
--- NOTE | 2018-08-14 15:10 | PN ---
Progress Note - Progress Note Date of Service: 08/14/18 SOAP: Subjective: []No change. Eating. No STOVALL. Had meeting with NSG this am and considering surgery. Acetaminophen (Tylenol Tab*) 650 mg PO Q4H PRN PRN Reason: FEVER/PAIN Al Hydrox/Mg Hydrox/Simethicone (Maalox Plus*) 30 ml PO Q6H PRN PRN Reason: INDIGESTION Atorvastatin Calcium (Lipitor*) 40 mg PO QAM [facility] Last Admin: 08/14/18 08:50 Dose: 40 mg Dexamethasone Sodium Phosphate (Decadron Iv*) 4 mg IV SLOW PU Q8H [facility] Last Admin: 08/14/18 08:50 Dose: 4 mg Dextrose (D50w Syringe 50 Ml*) 12.5 gm IV PUSH .FOR FS < 60 - SS PRN PRN Reason: FS < 60 Docusate Sodium (Colace Cap*) 100 mg PO BID [facility] Last Admin: 08/14/18 08:53 Dose: Not Given Gabapentin (Neurontin Cap(*)) 100 mg PO TID [facility] Last Admin: 08/14/18 12:56 Dose: 100 mg Sodium Chloride (Ns 0.9% 1000 Ml) 1,000 mls @ 75 mls/hr IV PER RATE [facility] Last Admin: 08/14/18 09:49 Dose: 75 mls/hr Insulin Glargine (Lantus(*)) 70 units SUBCUT [facility] Insulin Human Lispro (Humalog*) 0 units SUBCUT [facility]; Protocol Last Admin: 08/14/18 12:57 Dose: Not Given Levetiracetam (Keppra Tab*) 500 mg PO BID [facility] Last Admin: 08/14/18 08:50 Dose: 500 mg Loperamide HCl (Imodium Cap*) 2 mg PO .SEE DIRECTIONS PRN PRN Reason: DIARRHEA Magnesium Sulfate (Epsom Salt*) 1 applic TOPICAL DAILY [facility] Last Admin: 08/14/18 09:50 Dose: 1 applic Metoprolol Succinate (Toprol Xl Tab*) 50 mg PO DAILY [facility] Last Admin: 08/14/18 08:50 Dose: 50 mg Morphine Sulfate (Morphine 4 Mg/Ml Vial (1 Ml)) 1 mg IV Q4H PRN PRN Reason: PAIN - SEVERE Oxycodone/Acetaminophen (Percocet 5/325 Tab*) 1 tab PO Q4H PRN PRN Reason: PAIN - MODERATE Last Admin: 08/13/18 12:22 Dose: 1 tab Pantoprazole Sodium (Protonix Tab*) 40 mg PO DAILY [facility] Last Admin: 08/14/18 08:50 Dose: 40 mg Objective: [] Vital Signs Temp Pulse Resp BP Pulse Ox 96.7 F 80 18 115/64 99 08/14/18 12:49 08/14/18 13:01 08/14/18 13:06 08/14/18 13:01 08/14/18 13:01 HEENT: OM moist, no lesions. No thrush Neuro CN 2-12 intact and responsive to questions. Some weakness on Left side 4/ 5 normal on right. laying in bed, did not check balance, gait. CTA RRR S1S2 +BS NT ND, no HSM skin - no change in disease since last week, progression over past month CT C/A/P - There is 1 cm iliac node, unchanged. New liver lesion R lobe 1.5 cm, hypodense and likely metastatic disease. No other significant lesions. MRI brain - reviewed and the dominant lesion is RFL, there are multiple other sites of metastasis. The largest lesion outide RFL is 2.1 cm. Edema. Assessment: []63 year old metastatic melanoma, brief response to Ipi/Nivo then stopped for colitis and on steroid taper. New progression of EVALUATION ADVISOR disease, large 5 cm RF lesion and multiple smaller sites of disease. CT scans show a small liver lesion but no other areas of progressive disease. Further discussion with patient and . Goal of care is to re-gain QOL from 2 weeks ago through treatment of EVALUATION ADVISOR disease followed by resumption of immunotherapy. I am unsure with surgery if we will reach that goal. A good case scenario from hear would be 6-12 months of stable disease before he dies from melanoma. The alternative is hospice and supportive care, prognosis in weeks. He wants to proceed with surgery. My advice is to expedite surgery at [facility]. I feel the time line is important. Best case will be one month to starting systemic therapy. Risks of surgery including EVALUATION ADVISOR bleeding were discussed. He will proceed with surgery. Plan: []1. EVALUATION ADVISOR. Proceed with resection of frontal lobe lesion, possible surgery tomorrow. 2. DM. - Increase Lantus ot 70 U SQ daily on Dex - Increase ISS to BMI > 30 3. Decreased bicarbonate likely second to altered glucose metabolism. No evidence of sepsis, no diarrhea. - NS 100 cc per hr - Follow on increased insulin. 4. Will be making significant other Health Care Proxy.
[2018-08-15] MEDS: Dexamethasone IV* 4 MG/ML 1 ML (4 MG) IV SLOW PU SCH ×3 (00:29→17:30)
[2018-08-15] MEDS: NS 0.9% 1000 ML** 1,000 ML IV SCH (03:24)
[2018-08-15 05:34] LABS: Hematocrit 30 % (42-52); Hemoglobin 10.2 g/dL (14.0-18.0); Mean Corpuscular HGB Conc 34 g/dL (31-36); Mean Corpuscular Hemoglobin 31 pg (27-31); Mean Corpuscular Volume 91 fL (80-94); Mean Platelet Volume 7.3 fL (7.4-10.4); Platelet Count 190 10^3/uL (150-450); Red Blood Count 3.31 10^6 /uL (4.18-5.48); Red Cell Distribution Width 18 % (10-15); White Blood Count 13.4 10^3/uL (3.5-10.8)
[2018-08-15 05:57] LABS: Albumin 3.2 g/dL (3.2-5.2); Albumin/Globulin Ratio 1.3 (1-3); BUN/Creatinine Ratio 22.4 (8-20); EGFR African American 125.3 (>60); EGFR Non-African American 103.6 (>60); Globulin 2.4 g/dL (2-4); Potassium 4.1 mmol/L (3.5-5.0); Total Bilirubin 0.5 mg/dL (0.2-1.0); Total Protein 5.6 g/dL (6.4-8.9)
[2018-08-15] MEDS ORDERED: Insulin GLARGINE(*) 1 UNITS UNIT SUBCUT SCH (09:00)
[2018-08-15] MEDS: Atorvastatin* 40 MG TAB PO SCH (09:08)
[2018-08-15] MEDS: Pantoprazole TAB * 40 MG TAB PO SCH (09:08)
[2018-08-15] MEDS: Gabapentin CAP(*) 100 MG PO SCH ×3 (09:08→22:11)
[2018-08-15] MEDS: levETIRAcetam TAB* 500 MG PO SCH ×2 (09:08→22:11)
[2018-08-15] MEDS: Docusate CAP* 100 MG PO SCH ×2 (09:08→22:11)
[2018-08-15] MEDS: Insulin LISPRO* 1 UNITS UNIT SUBCUT SCH ×5 (09:09→23:41)
[2018-08-15] MEDS: Metoprolol Succinate XL TAB* 50 MG PO SCH (09:12)
[2018-08-15] MEDS: Magnesium Sulfate CRYSTAL* 454 GM BOX TOPICAL SCH ×2 (11:36→12:37)
--- NOTE | 2018-08-15 16:29 | PN ---
Progress Note - Progress Note Date of Service: 08/15/18 Note: Subjective: 63 y/o male with right frontal brain tumor, no acute changes over night in ICU.Presently denies STOVALL, nausea, vomiting, visual changes or extremity weakness. Dr. Cara jay with patient about surgical intervention completed here or [facility]. This morning patient indicates would possible [place] [facility] Objective: Vital Signs - 12 hr Temp Pulse Resp BP Pulse Ox 08/15/18 14:40 18 08/15/18 13:23 97.2 F 65 20 116/65 97 08/15/18 13:00 18 08/15/18 12:00 17 08/15/18 11:38 97.1 F 08/15/18 11:00 52 16 129/76 97 08/15/18 10:01 54 19 143/80 99 08/15/18 10:00 50 14 99 08/15/18 09:00 50 20 128/77 98 08/15/18 08:00 57 11 128/70 98 08/15/18 07:00 49 10 134/75 97 08/15/18 06:37 12 08/15/18 06:00 50 10 126/73 96 08/15/18 05:50 12 08/15/18 05:00 53 17 125/75 97 08/15/18 04:45 12 General: Patient laying comfortable in bed sleep, NAD Neuro: GCS 15, A&O x 3, CN II - XII grossly intact, EOM intact. UPE Motor strength 5/5 through out. LE motor strength 5/5 through out, sensation intact through out with light touch. Musculoskeletal: left toe amputation, melanoma on distal left leg Assessment: 63 y/o male with right frontal brain tumor, neurological intact with no focal deficits, at this time patient will possible undergo tumor [place] [facility] Patient states sill considering options. Plan: 1) Obtain medical clearance for possible surgery this Monday 2) Order 2 Units of RBC 3) Order 2 units of Platelets on hold for the OR 4) MRI of the brain with stealth protocol morning of surgery.
--- NOTE | 2018-08-15 21:10 | PN ---
Progress Note - Progress Note Date of Service: 08/14/18 SOAP: Subjective: [] Patient was seen earlier at date of note. In ICU. No events ON Objective: [] ]VSS AAOx3 GEOVANNA, CN II-XII grossly intact Motor 4-5/5 all extremities Sensory grossly intact to light touch Assessment: []63 yom metastatic melanoma, multiple brain lesions Plan: []Monitor VS, Neurochecks Discussed with Dr Matt regarding patient's condition and prognosis and possible benefit from Rt frontal tumor resection. Discussed in extend with patient and his significant other in the presence of ICU nurse regarding treatment options, expectations and possible complications of surgical intervention with risks including but not limited to bleeding, infection, risk of injury to adjacent structures, coma, paralysis, , need for additional procedures, anesthesia risks, inability to resect tumor, substantial bleeding with need for transfusion, intraoperative , need for prolonged hospitalization and ICU stay, need for tracheostomy, gastrostomy, prolonged rehabilitation. Art and his significant other understand that operative plan may be modified according to intraoperative findings and conditions and that the case may be abandoned or done in more than one stages. The option of transfer to [place] or other facility was discussed with the patient and his significant other. Patient and his significant other leaning toward having surgical intervention here. Appreciate IM, oncology care. Steffi Marroquin MD
[2018-08-15] MEDS ORDERED: Insulin LISPRO* 1 UNITS UNIT SUBCUT ONE (23:18)
[2018-08-16] MEDS: Dexamethasone IV* 4 MG/ML 1 ML (4 MG) IV SLOW PU SCH ×3 (01:37→17:54)
[2018-08-16] MEDS ORDERED: Insulin GLARGINE(*) 1 UNITS UNIT SUBCUT SCH (09:00)
[2018-08-16] MEDS: Metoprolol Succinate XL TAB* 50 MG PO SCH (09:06)
[2018-08-16] MEDS: Docusate CAP* 100 MG PO SCH ×2 (09:06→21:59)
[2018-08-16] MEDS: Gabapentin CAP(*) 100 MG PO SCH ×3 (09:06→21:59)
[2018-08-16] MEDS: levETIRAcetam TAB* 500 MG PO SCH ×2 (09:06→21:59)
[2018-08-16] MEDS: Atorvastatin* 40 MG TAB PO SCH (09:06)
[2018-08-16] MEDS: Insulin LISPRO* 1 UNITS UNIT SUBCUT SCH ×4 (09:07→21:59)
[2018-08-16] MEDS: Pantoprazole TAB * 40 MG TAB PO SCH (09:08)
--- NOTE | 2018-08-16 09:58 | PN ---
Progress Note - Progress Note Date of Service: 08/16/18 SOAP: Subjective: []Feels fine. No complaints today. with multiple questions regarding surgical plan and where she needs to be. Medications: Acetaminophen (Tylenol Tab*) 650 mg PO Q4H PRN PRN Reason: FEVER/PAIN Al Hydrox/Mg Hydrox/Simethicone (Maalox Plus*) 30 ml PO Q6H PRN PRN Reason: INDIGESTION Atorvastatin Calcium (Lipitor*) 40 mg PO QAM [facility] Last Admin: 08/16/18 09:06 Dose: 40 mg Dexamethasone Sodium Phosphate (Decadron Iv*) 4 mg IV SLOW PU Q8H [facility] Last Admin: 08/16/18 09:07 Dose: 4 mg Dextrose (D50w Syringe 50 Ml*) 12.5 gm IV PUSH .FOR FS < 60 - SS PRN PRN Reason: FS < 60 Docusate Sodium (Colace Cap*) 100 mg PO BID [facility] Last Admin: 08/16/18 09:06 Dose: 100 mg Gabapentin (Neurontin Cap(*)) 100 mg PO TID [facility] Last Admin: 08/16/18 09:06 Dose: 100 mg Insulin Glargine (Lantus(*)) 80 units SUBCUT [facility] Last Admin: 08/16/18 09:08 Dose: 80 units Insulin Human Lispro (Humalog*) 0 units SUBCUT [facility]; Protocol Last Admin: 08/16/18 09:07 Dose: 9 units Levetiracetam (Keppra Tab*) 500 mg PO BID [facility] Last Admin: 08/16/18 09:06 Dose: 500 mg Loperamide HCl (Imodium Cap*) 2 mg PO .SEE DIRECTIONS PRN PRN Reason: DIARRHEA Magnesium Sulfate (Epsom Salt*) 1 applic TOPICAL DAILY [facility] Last Admin: 08/15/18 12:37 Dose: Not Given Metoprolol Succinate (Toprol Xl Tab*) 50 mg PO DAILY [facility] Last Admin: 08/16/18 09:06 Dose: 50 mg Morphine Sulfate (Morphine 4 Mg/Ml Vial (1 Ml)) 1 mg IV Q4H PRN PRN Reason: PAIN - SEVERE Oxycodone/Acetaminophen (Percocet 5/325 Tab*) 1 tab PO Q4H PRN PRN Reason: PAIN - MODERATE Last Admin: 08/13/18 12:22 Dose: 1 tab Pantoprazole Sodium (Protonix Tab*) 40 mg PO DAILY [facility] Last Admin: 08/16/18 09:08 Dose: 40 mg Objective: [] Vital Signs Temp Pulse Resp BP Pulse Ox 97.3 F 62 18 136/79 97 08/16/18 07:50 08/16/18 07:50 08/16/18 09:06 08/16/18 07:50 08/16/18 07:50 A&Ox3, communicating clear CN II-XII intact, note right pupil slightly larger than left however bilat. reponsive Strength = bilat., 4-5/5, LIMA independently HRR, S1S2, SR on tele LS clear, resp even and non-labored Laboratory Results - last 24 hr 08/15/18 08/15/18 08/15/18 12:03 16:33 22:16 POC Glucose (mg/dL) 208 H 300 H > 444 H* Glucose Meter Confirm 08/15/18 08/16/18 08/16/18 22:23 03:24 07:43 POC Glucose (mg/dL) 290 H 274 H Glucose Meter Confirm [address] C/A/P - There is 1 cm iliac node, unchanged. New liver lesion R lobe 1.5 cm, hypodense and likely metastatic disease. No other significant lesions. MRI brain - reviewed and the dominant lesion is RFL, there are multiple other sites of metastasis. The largest lesion outide RFL is 2.1 cm. Edema. Assessment: []63 year old metastatic melanoma, brief response to Ipi/Nivo then stopped for colitis and on steroid taper now with new COUNT TEAM MEMBER disease. Neuro symptoms improved on steroids with plan for craniotomy tomorrow AM. Plan: []1. COUNT TEAM MEMBER Mets: craniotomy as per neurosurgery - cont. steroids 2. Hyperglycemia: 2/2 glucocorticoids - cont. current insulin, increased yesterday 3. Melanoma: tx. on hold pending recovery from surgery - possible resumption of immunotherapy as per Dr. Rangel's note 08/14 Full Code Proxy - plans to be on site tomorrow during surgery, will have her cell phone as well
[2018-08-16] MEDS: Magnesium Sulfate CRYSTAL* 454 GM BOX TOPICAL SCH (13:14)
--- NOTE | 2018-08-16 18:12 | PN ---
Progress Note - Progress Note Date of Service: 08/16/18 SOAP: Subjective: 63 y/o male with right frontal brain tumors, no acute changes over night, he remains neurologically intact with no focal deficits. Patient has decided to remain at [facility] for surgical intervention. The plan is take patient to surgery for tumor resection in the morning. Objective: Vital Signs - 12 hr Temp Pulse Resp BP Pulse Ox 08/16/18 16:03 16 08/16/18 16:00 97.6 F 65 18 134/84 98 08/16/18 13:20 18 08/16/18 13:14 16 08/16/18 12:00 97.2 F 68 17 130/77 98 08/16/18 09:06 18 08/16/18 08:00 18 08/16/18 07:50 97.3 F 62 18 136/79 97 General: Patient laying comfortable in bed sleep, NAD Neuro: GCS 15, A&O x 3, CN II - XII grossly intact, EOM intact. UPE Motor strength 5/5 through out. LE motor strength 5/5 through out, sensation intact through out with light touch. Musculoskeletal: left toe amputation, melanoma on distal left leg Assessment: 63 y/o male with right frontal tumors, neurologically intact, will have resection in the a.m. pending medical clearance. Plan: 1) Get medical clearance from medicine, spoke with Dr. Betts, will evaluate patient this evening. 2) Get stealth MRI with contrast either tonight or in the morning before surgery. 3) NPO after midnight 4) start IV fluids after midnight 5) 2 units of RBC's and Platelets ordered and hold for the OR 6) Surgery in the morning.
--- NOTE | 2018-08-16 20:05 | CONS ---
CONSULTATION REPORT: DATE OF CONSULT: ATTENDING PHYSICIAN: Dr. Francis Meyer (dictated by MARIAM Rainey). REQUESTING PROVIDER: Dr. Marroquin. REASON FOR CONSULT: Medical preoperative clearance. HISTORY OF PRESENT ILLNESS: Enrrique Roman is a 63-year-old white male with past medical history significant for melanoma of the right great toe, status post excision; type 2 diabetes; diabetic neuropathy; hypertension; and cervical disk disease, who presented to the emergency department on 08/12/18 due to lethargy and facial droop and ultimately found to have new brain masses. The patient has been admitted to the hospital and there has been plan for excision of the brain masses scheduled for 08/17/18, as this is likely presumed to be a metastasis with melanoma. Hospital Medicine was consulted for preoperative medical clearance. The patient denies shortness of breath with walking several street blocks and up 2 flights of stairs. The patient denies shortness of breath at rest and chest pain. The patient has no other complaints at the time of evaluation. PAST MEDICAL HISTORY: Diabetes mellitus type 2, hypertension, melanoma of the right great toe, diabetic neuropathy, cervical disk disease. PAST SURGICAL HISTORY: Right knee surgery and umbilical hernia repair. MEDICATIONS: Active medications in the hospital: 1. Acetaminophen 650 mg p.o. q.4 hours p.r.n. pain. 2. Maalox 30 mL p.o. q.6 hours p.r.n. indigestion. 3. Lipitor 40 mg p.o. q.a.m. 4. Dexamethasone 4 mg IV q.8 hours. 5. Dextrose 12.5 g IV push for blood sugar less than 60. 6. Docusate 100 mg p.o. b.i.d. 7. Gabapentin 100 mg p.o. t.i.d. scheduled. 8. Insulin glargine 80 units subcu q.a.m. 9. Insulin lispro sliding scale subcu a.c., h.s. 10. Keppra 500 mg p.o. b.i.d. 11. Loperamide 2 mg p.o. p.r.n. diarrhea. 12. Mag sulfate 1 application topical daily. 13. Metoprolol succinate 50 mg p.o. daily scheduled. 14. Morphine sulfate 1 mg IV q.4 hours p.r.n. pain. 15. Percocet 5/325 one tab p.o. q.4 hours p.r.n. pain. 16. Pantoprazole 40 mg p.o. daily. ALLERGIES: PENICILLINS. FAMILY HISTORY: Mother at age 70 due to liver cancer. Brother at 68 due to pancreatic cancer. 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 He intermittently smoked at age 15, but was never a smoker. Denies alcohol use and drug use. REVIEW OF SYSTEMS: An 11-point review of systems was completed and all pertinent positives and negatives are above in the HPI. All other systems are negative. PHYSICAL EXAM: A white male, sitting in hospital chair. No acute distress. Appears well developed, well nourished. Head: Normocephalic, atraumatic. Eyes : PERRL. Sclerae anicteric. ENT: Mucous membranes moist. Neck: Supple without JVD. Cardio: Regular rate and rhythm without murmurs, rubs, or gallops. Lungs: Clear to auscultation throughout. Abdomen: Soft, nontender. Extremities: No cyanosis, clubbing, or edema. The right foot was wrapped in gauze. Neuro: The patient is alert and oriented x3 without focal deficits. Able to move all extremities equally. DIAGNOSTIC STUDIES/LAB DATA: Creatinine on 08/16/15 is 0.76. Glucose on is 357. Troponin 0.03 on 08/12/18. No previous echocardiograms in the EMR. EKG on 08/12/18: Sinus tachycardia, rate 125. No ST elevations or depressions. No T-wave changes. Appears overall similar to previous EKG in July 2018. ASSESSMENT AND PLAN: Enrrique Roman is a 63-year-old white male with melanoma of the right great toe, diabetes, hypertension, diabetic neuropathy, who has new brain masses and found to have likely metastatic melanoma and is planned for surgery tomorrow to excise the brain masses with Dr. Marroquin. The patient is medically optimized for surgery. His RCRI indicates a 6.0% 30-day risk of , myocardial infarction and arrest, which is below average. His NSQIP surgical risk calculator indicates 13.4% chance of serious complication which is average and 0.3% risk of cardiac complication which is below average. 1. Diabetes. If the patient has decreased oral intake in the postoperative period, it is recommended that his insulin glargine be decreased from 80 units to 60 units daily and to continue a.c., h.s. fingersticks. 2. Hypertension. Continue metoprolol as the patient has been normotensive during this hospital stay. Thank you for allowing us to participate in the care of this patient. We will follow along during this admission if this is needed. MARIAM RAINEY [id number]/[facility] #: [id number] PAOLA
[2018-08-17] MEDS: Dexamethasone IV* 4 MG/ML 1 ML (4 MG) IV SLOW PU SCH ×3 (01:47→19:41)
[2018-08-17] MEDS ORDERED: Lactated Ringers 1000 ML Bag* 1,000 ML IV SCH ×2 (07:00→11:00)
[2018-08-17 07:15] LABS: Hematocrit 34 % (42-52); Hemoglobin 11.7 g/dL (14.0-18.0); Mean Corpuscular HGB Conc 34 g/dL (31-36); Mean Corpuscular Hemoglobin 30 pg (27-31); Mean Corpuscular Volume 88 fL (80-94); Platelet Count 260 10^3/uL (150-450); Red Blood Count 3.86 10^6 /uL (4.18-5.48); Red Cell Distribution Width 18 % (10-15); White Blood Count 17.8 10^3/uL (3.5-10.8)
[2018-08-17 07:28] LABS: INR 1.12 (0.82-1.09)
[2018-08-17 07:35] LABS: Albumin 3.6 g/dL (3.2-5.2); Albumin/Globulin Ratio 1.3 (1-3); BUN/Creatinine Ratio 20.8 (8-20); Calcium 8.6 mg/dL (8.6-10.3); EGFR African American 133.4 (>60); EGFR Non-African American 110.3 (>60); Globulin 2.8 g/dL (2-4); Potassium 3.4 mmol/L (3.5-5.0); Total Bilirubin 0.6 mg/dL (0.2-1.0); Total Protein 6.4 g/dL (6.4-8.9)
[2018-08-17] MEDS: Insulin LISPRO* 1 UNITS UNIT SUBCUT SCH ×3 (08:20→23:32)
[2018-08-17] MEDS: Atorvastatin* 40 MG TAB PO SCH (08:25)
[2018-08-17] MEDS: Metoprolol Succinate XL TAB* 50 MG PO SCH (08:26)
[2018-08-17] MEDS: Gabapentin CAP(*) 100 MG PO SCH (08:26)
[2018-08-17] MEDS: Docusate CAP* 100 MG PO SCH ×2 (08:26→22:08)
[2018-08-17] MEDS: Pantoprazole TAB * 40 MG TAB PO SCH (08:26)
[2018-08-17] MEDS: levETIRAcetam TAB* 500 MG PO SCH (08:38)
[2018-08-17] MEDS ORDERED: Insulin GLARGINE(*) 1 UNITS UNIT SUBCUT ONE (08:39)
[2018-08-17] MEDS ORDERED: Gadoteridol* (CONTRAST) 279.3 MG/ML 10 ML IV ONE (09:26)
[2018-08-17] MEDS ORDERED: Buffered Lidocaine 1% SYRIN* 1 ML/SYRINGE INTRADERM ONE ×2 (09:45→10:25)
[2018-08-17] MEDS: Magnesium Sulfate CRYSTAL* 454 GM BOX TOPICAL SCH (09:58)
[2018-08-17] MEDS ORDERED: Ondansetron INJ* 2 MG/ML VIAL ONE (09:58)
[2018-08-17] MEDS ORDERED: Lidocaine 2% PF * 5 ML VIAL ONE (09:58)
[2018-08-17] MEDS ORDERED: Rocuronium* 10 MG/ML VIAL ONE (09:58)
[2018-08-17] MEDS ORDERED: Dexamethasone IV* 4 MG/ML 1 ML (4 MG) ONE ×2 (09:58→11:50)
[2018-08-17] MEDS ORDERED: Propofol* 500 MG/50 ML BTL ONE (09:58)
[2018-08-17] MEDS ORDERED: Phenylephrine 10 MG/ML VIAL* 1 ML VIAL ONE (09:58)
[2018-08-17] MEDS ORDERED: Sodium Chloride 0.9%* 10 ML ONE (09:58)
[2018-08-17] MEDS ORDERED: fentaNYL* 50 MCG/ML 2 ML VIAL (100 MCG VIAL) ONE ×2 (09:58→17:18)
[2018-08-17] MEDS ORDERED: Propofol* 10 MG/ML 20 ML BTL ONE (09:58)
[2018-08-17] MEDS ORDERED: Remifentanil* 2 MG VIAL ONE ×2 (09:59→13:15)
[2018-08-17] MEDS ORDERED: Midazolam* 1 MG/ML 10 ML VIAL (10 MG) ONE (09:59)
[2018-08-17] MEDS ORDERED: EPHEDrine (Pressors)* 50 MG/ML VIAL ONE (10:01)
[2018-08-17] MEDS ORDERED: Bacitracin INJECTION* 50,000 UNITS ONE ×3 (10:07→15:07)
[2018-08-17] MEDS ORDERED: Lidocaine 1% MPF wEPI 200,000* 30 ML SDV ONE (10:07)
[2018-08-17] MEDS ORDERED: Thrombin 5,000 UNITS* 1 APPLIC KIT - topical use - TOPICAL ONE (10:07)
[2018-08-17] MEDS ORDERED: Artificial Tear OPHTH.OINT* 3.5 GM ONE (10:10)
[2018-08-17] MEDS ORDERED: Famotidine IV* 10 MG/ML 2 ML (20 mg) IV ONE (10:25)
[2018-08-17] MEDS ORDERED: Famotidine IV* 10 MG/ML 2 ML (20 mg) ONE (10:45)
--- NOTE | 2018-08-17 10:51 | PN ---
Progress Note - Progress Note Date of Service: 08/17/18 SOAP: Subjective: No events ON. NPO Objective: VSS AAOx3 GEOVANNA, CN II-XII grossly intact Motor 4-5/5 all extremities Sensory grossly intact to light touch Assessment: 63 yom metastatic melanoma, multiple brain lesions Plan: To OR today for Rt frontal tumor resection. Discussed again in extend with patient and his family, including his significant other and sister regarding indications, expectations and possible complications of surgical intervention with risks including but not limited to bleeding, infection, risk of injury to adjacent structures, coma, paralysis, , need for additional procedures, anesthesia risks, inability to resect tumor, substantial bleeding with need for transfusion, intraoperative , need for prolonged hospitalization and ICU stay, need for tracheostomy, gastrostomy, prolonged rehabilitation. Patient and his significant other understand that operative plan may be modified according to intraoperative findings and conditions and that the case may be abandoned or done in more than one stages. Patient and his family would like to proceed with surgical intervention and informed consent was obtained. They understand that his condition may not improve and in fact may get worse after surgery and that he may require prolonged hospitalization, rehabilitation ventilator dependence, additional procedures in the future. Steffi Marroquin MD
[2018-08-17] MEDS ORDERED: Vancomycin(*) 1,250 MG IV x ONCE IVPB ONE ×2 (11:00)
[2018-08-17 11:21] LABS: Polychromasia 2+
[2018-08-17 11:23] LABS: ABS Lymphocytes 2.1 10^3/ul (1.0-4.8); ABS Neutrophils 14.7 10^3/ul (1.5-7.7); ABS Nucleated RBC 0.1 10^3/ul; Eosinophil % 0.1 %; Lymphocyte % 11.6 %; Nucleated Red Blood Cells % 0.3
[2018-08-17] MEDS ORDERED: Bacitracin OINTMENT* 0.5% 0.5 oz TUBE ONE (11:43)
[2018-08-17] MEDS ORDERED: Mannitol 25% (12.5 GM) 50 ML* 12.5 GM/50 ML VIAL ONE ×2 (11:51→11:52)
[2018-08-17] MEDS ORDERED: HYDROmorphone INJ1* 1 MG/ML SYRINGE ONE (15:08)
--- NOTE | 2018-08-17 16:03 | PN ---
Date of Service: 08/17/18 - HD 6 Critical Care Services: 63 yo M with metastatic melanoma of the right toe. He was previously immunotherapy, last dose received June 2018, however this had been suspended due to colitis, improving after treatment with Remicade and steriods. Since stopping immunotherapy the melanoma has spread back up the right calf into the groin. He presented to the ED on 08/12 with lethargy x 3 days. Per the patient "has not been himself". Pt also reported bleeding from toe amputation site, subjective fevers, weakness and confusion. On workup found to have multiple new masses in the brain with mass effect and midline shift. Neurosurgery consulted. Started on Decadron for vasogenic edema. Admitted to the hospitalist service. 08/13: Seen by oncology. CT CAP obtained to complete metastatic workup. Plans for debulking surgery of right frontal brain met followed XRT for remaining brain lesions then palliative immunotherapy. Mental status improved on steriods. 08/14: Pt decided to proceed with surgery. 08/17: Went to OR for right frontal lobe resection. Post procedure transferred to ICU for further resuscitation and care. Vital Signs: Temp Pulse Resp BP SpO2 FiO2 97.7 F 58 18 134/80 98 08/17/18 08:00 08/17/18 08:00 08/17/18 08:00 08/17/18 08:00 08/17/18 08:00 Physical Exam: Gen: resting comfortably HEENT: dressing in place. FERNANDO with serosanguinous drainage Lungs: CTAB Cardiac: RRR Abdomen: soft, NTND Extremities: warm, dry Neuro: opens eyes to voice. responded to question "how are you doing?" with "Okay". Wiggled left toes to command. Not giving thumbs up to command or moving right foot to command yet. Fluid Balance (Past 24 Hours): I= O= Net Intake & Output 08/15/18 08/16/18 08/17/18 08/18/18 06:59 06:59 06:59 06:59 Intake Total 3495 700 720 250 Output Total 2400 Balance 1095 700 720 250 Weight 191 lb 5.78 oz Intake: IV Fluids 2395 250 NS (0.9%) 2395 VANCOMYCIN 1250MG/250ML 250 Oral 1100 700 720 Output: Urine 2400 Other: Date of Last Bowel 08/14/17 Movement # Bowel Movements 1 1 1 Estimated Stool Amount Medium Labs: Laboratory Results - last 24 hr 08/16/18 08/16/18 08/16/18 16:53 17:39 19:29 WBC RBC Hgb Hct MCV MCH MCHC RDW Plt Count MPV Neut % (Auto) Lymph % (Auto) [place] % (Auto) Eos % (Auto) Baso % (Auto) Absolute Neuts (auto) Absolute Lymphs (auto) Absolute Monos (auto) Absolute Eos (auto) Absolute Basos (auto) Absolute Nucleated RBC Immature Gran % Neutrophils % Band Neutrophils % Lymphocytes % Monocytes % Metamyelocytes % Myelocytes % Nucleated RBC % Nucleated RBCs/100 WBC Normal RBC Morphology Polychromasia INR (Anticoag Therapy) ABG pH ABG pCO2 ABG pO2 ABG HCO3 ABG O2 Saturation ABG Base Excess Sodium Potassium Chloride Carbon Dioxide Anion Gap BUN Creatinine Est GFR ( Amer) Est GFR (Non-Af Amer) BUN/Creatinine Ratio Glucose POC Glucose (mg/dL) 357 H 341 H Calcium Total Bilirubin AST ALT Alkaline Phosphatase Total Protein Albumin Globulin Albumin/Globulin Ratio Blood Type A Positive Antibody Screen Negative Crossmatch See Detail 08/17/18 08/17/18 08/17/18 07:06 07:06 07:06 WBC 17.8 H RBC 3.86 L Hgb 11.7 L Hct 34 L MCV 88 MCH 30 MCHC 34 RDW 18 H Plt Count 260 MPV 7.0 L Neut % (Auto) 82.7 Lymph % (Auto) 11.6 [place] % (Auto) 5.3 Eos % (Auto) 0.1 Baso % (Auto) 0.3 Absolute Neuts (auto) 14.7 H Absolute Lymphs (auto) 2.1 Absolute Monos (auto) 1.0 H Absolute Eos (auto) 0.0 Absolute Basos (auto) 0.0 Absolute Nucleated RBC 0.1 Immature Gran % 7.0 Neutrophils % 78.0 Band Neutrophils % 5.0 Lymphocytes % 12.0 Monocytes % 3.0 Metamyelocytes % 1.0 Myelocytes % 1.0 Nucleated RBC % 0.3 Nucleated RBCs/100 WBC 2.0 H Normal RBC Morphology Not Reportable Polychromasia 2+ INR (Anticoag Therapy) 1.12 H ABG pH ABG pCO2 ABG pO2 ABG HCO3 ABG O2 Saturation ABG Base Excess Sodium 139 Potassium 3.4 L Chloride 106 Carbon Dioxide 25 Anion Gap 8 BUN 15 Creatinine 0.72 Est GFR ( Amer) 133.4 Est GFR (Non-Af Amer) 110.3 BUN/Creatinine Ratio 20.8 H Glucose 164 H POC Glucose (mg/dL) Calcium 8.6 Total Bilirubin 0.60 AST 25 ALT 38 Alkaline Phosphatase 109 H Total Protein 6.4 Albumin 3.6 Globulin 2.8 Albumin/Globulin Ratio 1.3 Blood Type Antibody Screen Crossmatch 08/17/18 08/17/18 08/17/18 07:44 10:10 12:08 WBC RBC Hgb Hct MCV MCH MCHC RDW Plt Count MPV Neut % (Auto) Lymph % (Auto) [place] % (Auto) Eos % (Auto) Baso % (Auto) Absolute Neuts (auto) Absolute Lymphs (auto) Absolute Monos (auto) Absolute Eos (auto) Absolute Basos (auto) Absolute Nucleated RBC Immature Gran % Neutrophils % Band Neutrophils % Lymphocytes % Monocytes % Metamyelocytes % Myelocytes % Nucleated RBC % Nucleated RBCs/100 WBC Normal RBC Morphology Polychromasia INR (Anticoag Therapy) ABG pH 7.44 ABG pCO2 30 L ABG pO2 406 H ABG HCO3 22.9 ABG O2 Saturation 99.9 H ABG Base Excess -2.7 L Sodium Potassium Chloride Carbon Dioxide Anion Gap BUN Creatinine Est GFR ( Amer) Est GFR (Non-Af Amer) BUN/Creatinine Ratio Glucose POC Glucose (mg/dL) 153 H 154 H Calcium Total Bilirubin AST ALT Alkaline Phosphatase Total Protein Albumin Globulin Albumin/Globulin Ratio Blood Type Antibody Screen Crossmatch 08/17/18 14:08 WBC RBC Hgb Hct MCV MCH MCHC RDW Plt Count MPV Neut % (Auto) Lymph % (Auto) [place] % (Auto) Eos % (Auto) Baso % (Auto) Absolute Neuts (auto) Absolute Lymphs (auto) Absolute Monos (auto) Absolute Eos (auto) Absolute Basos (auto) Absolute Nucleated RBC Immature Gran % Neutrophils % Band Neutrophils % Lymphocytes % Monocytes % Metamyelocytes % Myelocytes % Nucleated RBC % Nucleated RBCs/100 WBC Normal RBC Morphology Polychromasia INR (Anticoag Therapy) ABG pH ABG pCO2 ABG pO2 ABG HCO3 ABG O2 Saturation ABG Base Excess Sodium Potassium Chloride Carbon Dioxide Anion Gap BUN Creatinine Est GFR ( Amer) Est GFR (Non-Af Amer) BUN/Creatinine Ratio Glucose POC Glucose (mg/dL) 199 H Calcium Total Bilirubin AST ALT Alkaline Phosphatase Total Protein Albumin Globulin Albumin/Globulin Ratio Blood Type Antibody Screen Crossmatch Studies: 08/17 MR brain - multiple ring-enhancing lesions which have increased slightly in size fro prior study most consistent with metastatic disease. There is significant mass effect with compression of the frontal horns of the lateral ventricles and sub falcine herniation. 08/13 CT CAP - Precarinal lymph node slightly larger compared to prior. low density lesions in the liver not clearly identified on prior imaging. Right inguinal region and external iliuac region demonstrate enlarging lymph nodes when compared to prior. 08/12 MR brain - multiple enhancing lesions. Largest in the right frontal lobe measuring 5.2 cm and exerting mass effect on the anterior horn of the right ventricle and casuing 3-4 mm of right to left midline shift of the falx. 08/12 CT brain - multiple new masses containing hemorrhage suspicious for hemorrhagic metastases causing significant mass effect. 08/12 CXR - NAD Nutrition: NPO. Scant ice chips overnight. Impression: 63 yo M with metastatic melanoma and large right frontal metastasis with vaogenic edema and mass effect. Went to OR for right frontal lobe resection which he tolerated well. Plan: Cardiovascular: (1) Benign essential HTN -- HR 58-68 -- SBP 134-139 -- Telemetry -- Atorvastatin -- Metoprolol, changed to IV -- PRN Hydralazine and Labetalol as needed for goal SBP < 140 -- if PRNs unsuccessful will start cardene gtt Home meds: Ramipril, Atorvastatin, ASA, metoprolol Pulmonary: No acute issues -- RR 16-18 -- sats 97-99 on RA -- ABG: pH 7.44; pCO2 30; pO2 406; HCO3 22.9; BE -2.7; %O2 Sat 99.9. Home meds: None Gastrointestinal: (1) Elevated ALK; (2) multiple hypodense lesions noted in liver on CT; (3) Recent episode of immunotherapy induced colitis -- LFTs Tbili 0.6 ALK 109, follow trend AST 25 ALT 38 -- diet: NPO, scant ice chips -- bowel regimen: Maalox-Mylanta, Loperamide -- ulcer prophylaxis: Protonix Home meds: Loperamide Endocrine: (1) Type 2 diabetes mellitus -- monitor BGs -- SSI -- Dexamethasone for vasogenic cerebral edema Home meds: Lantus, prednisone Renal: (1) Hypokalemia -- UOP: strict ins and outs -- Cr 0.72 -- Lytes Na 139 K 3.4, recheck Ca 8.6 Mag ordered with AM labs Phos ordered with AM labs -- IVF: LR @ 75 ml/hr Home meds: None Infectious disease: (1) Steriod induced leukocytosis -- Tmax 97.7 -- WBC 17.8 from 13.4 from 19.8, likely secondary to steriods, follow trend -- Micro 08/12 MRSA screen positive blood negative UA negative -- ABX Perioperative Home meds: None Neurologic: (1) 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 No chemoprophylaxis secondary to intracranial bleed Dietary: Protonix Condition: critical Prognosis: poor Code status: full Disposition: continue ICU care Cumulative time spent in the care of this patient (excluding any procedure time) : at least 50 minutes. Patient care included clinical interview (with patient and/or family), bedside exam of the patient, review of labs, x-rays, and other ancillary data, coordination of (respiratory, nursing care, review of patient's records, discussion regarding patients management with involved consultants, primary physician, pharmacists, and other healthcare personnel (dietary, case management , physical/occupational therapy etc.) Critical Care Time: 50
[2018-08-17] MEDS ORDERED: levETIRAcetam 500 MG IVPREMIX* 500 MG/100 ML BAG IVPB ONE (17:03)
[2018-08-17] MEDS ORDERED: fentaNYL* 50 MCG/ML 2 ML VIAL (100 MCG VIAL) IV PRN (17:22)
[2018-08-17] MEDS ORDERED: Ondansetron INJ* 2 MG/ML VIAL IV PRN ×2 (17:22→18:28)
[2018-08-17] MEDS ORDERED: Naloxone* 0.4 MG/ML 1 ML VIAL IV PRN (17:22)
[2018-08-17] MEDS ORDERED: Labetalol IV* 5 MG/ML 20 ML VIAL ONE (17:30)
[2018-08-17] MEDS ORDERED: hydrALAZINE IV* 20 MG/ML VIAL IV SLOW PU PRN (18:21)
[2018-08-17] MEDS ORDERED: Labetalol IV* 5 MG/ML 20 ML VIAL IV PUSH PRN (18:22)
[2018-08-17] MEDS ORDERED: Morphine INJ* 2 MG/ML 1 ML SYRINGE (TWO MG - NEW SYRINGE VERSION) IV PRN (18:31)
[2018-08-17] MEDS: Lactated Ringers 1000 ML Bag* 1,000 ML IV SCH (18:35)
[2018-08-17] MEDS ORDERED: levETIRAcetam 500 MG IVPREMIX* 500 MG/100 ML BAG IV SCH (19:00)
[2018-08-17] MEDS: Metoprolol Tartrate IV* 1 MG/ML 5 ML VIAL IV SCH (19:41)
[2018-08-17] MEDS ORDERED: hydrALAZINE IV* 20 MG/ML VIAL IV SLOW PU ONE (20:30)
[2018-08-17] MEDS: levETIRAcetam 500 MG IVPREMIX* 500 MG/100 ML BAG IV SCH (21:16)
[2018-08-17] MEDS: niCARdipine 0.1MG/ML IVPREMIX* 20 MG/200 ML BAG IV SCH (21:35)
[2018-08-18] MEDS: Dexamethasone IV* 4 MG/ML 1 ML (4 MG) IV SLOW PU SCH ×4 (01:51→18:01)
[2018-08-18] MEDS: Metoprolol Tartrate IV* 1 MG/ML 5 ML VIAL IV SCH ×3 (03:08→20:34)
[2018-08-18] MEDS: niCARdipine 0.1MG/ML IVPREMIX* 20 MG/200 ML BAG IV SCH ×5 (03:35→21:15)
[2018-08-18] MEDS: Insulin LISPRO* 1 UNITS UNIT SUBCUT SCH ×6 (03:47→23:48)
[2018-08-18] MEDS ORDERED: Senna TAB PO PRN (05:48)
[2018-08-18] MEDS ORDERED: Polyethylene Glycol 3350* 17 GM PACKET PO PRN (05:48)
[2018-08-18 06:07] LABS: Hematocrit 35 % (42-52); Hemoglobin 11.8 g/dL (14.0-18.0); Mean Corpuscular HGB Conc 34 g/dL (31-36); Mean Corpuscular Hemoglobin 31 pg (27-31); Mean Corpuscular Volume 91 fL (80-94); Platelet Count 200 10^3/uL (150-450); Red Blood Count 3.85 10^6 /uL (4.18-5.48); Red Cell Distribution Width 18 % (10-15); White Blood Count 20.4 10^3/uL (3.5-10.8)
[2018-08-18 06:24] LABS: BUN/Creatinine Ratio 19.7 (8-20); Blood Urea Nitrogen 12 mg/dL (6-24); CO2 Carbon Dioxide 22 mmol/L (22-32); Chloride 106 mmol/L (101-111); EGFR African American 161.5 (>60); EGFR Non-African American 133.5 (>60); Glucose 127 mg/dL (70-100); Sodium 139 mmol/L (135-145)
[2018-08-18 06:38] LABS: Anion Gap 11 mmol/L (2-11)
[2018-08-18] MEDS: Lactated Ringers 1000 ML Bag* 1,000 ML IV SCH (07:46)
[2018-08-18] MEDS: levETIRAcetam 500 MG IVPREMIX* 500 MG/100 ML BAG IV SCH ×2 (08:47→21:49)
--- NOTE | 2018-08-18 08:53 | PN ---
Progress Note - Progress Note Date of Service: 08/18/18 SOAP: Subjective: 63 y/o male s/p resection of metastatic right front brain lesion POD # 1. Patient has been stable over night, despite pulling out one his scalp drains. He has some confession that is gradually improving, but is able to follow commands. Objective: [] General: Patient laying in bed calm, NAD Neuro: patient follow commands moves all extremities, GCS 15, CN II - XII grossly intact, muscle strength 5/5 in all extremities. Assessment: 63 y/o male post resection of metastatic lesion of right frontal lobe, has some confusion gradually improving, moves all extremities, recovering appropriately. Plan: Continue nuero checks Continue to monitor drain our put Advance diet as tolerated
[2018-08-18] MEDS ORDERED: Pantoprazole TAB * 40 MG TAB PO SCH (09:00)
--- NOTE | 2018-08-18 09:02 | PN ---
Progress Note - Progress Note Date of Service: 08/18/18 SOAP: Subjective: sp craniotomy and decompression yesterday. pulled out one drain overnight. on nicardipine drip for HTN. confused, not really following commands. Objective: Vital Signs Temp Pulse Resp BP Pulse Ox 99.2 F 70 12 124/73 95 08/18/18 07:59 08/18/18 08:15 08/18/18 08:15 08/18/18 08:15 08/18/18 08:15 lying flat in nad head dressed, one drain with serosang fluid minimal eye opening CTA anteriorly s1 s2 nl soft nt +Bs no le edema r foot dressed, melanoma deposits up calf awakes, says yes, but not following commands, moving all extremities Laboratory Results - last 24 hr 08/16/18 08/17/18 08/17/18 17:39 07:06 10:10 WBC 17.8 H RBC 3.86 L Hgb 11.7 L Hct 34 L MCV 88 MCH 30 MCHC 34 RDW 18 H Plt Count 260 MPV 7.0 L Neut % (Auto) 82.7 Lymph % (Auto) 11.6 [place] % (Auto) 5.3 Eos % (Auto) 0.1 Baso % (Auto) 0.3 Absolute Neuts (auto) 14.7 H Absolute Lymphs (auto) 2.1 Absolute Monos (auto) 1.0 H Absolute Eos (auto) 0.0 Absolute Basos (auto) 0.0 Absolute Nucleated RBC 0.1 Immature Gran % 7.0 Neutrophils % 78.0 Band Neutrophils % 5.0 Lymphocytes % 12.0 Monocytes % 3.0 Metamyelocytes % 1.0 Myelocytes % 1.0 Nucleated RBC % 0.3 Nucleated RBCs/100 WBC 2.0 H Normal RBC Morphology Not Reportable Polychromasia 2+ Hem Pathologist Commnt ABG pH ABG pCO2 ABG pO2 ABG HCO3 ABG O2 Saturation ABG Base Excess Sodium Potassium Chloride Carbon Dioxide Anion Gap BUN Creatinine Est GFR ( Amer) Est GFR (Non-Af Amer) BUN/Creatinine Ratio Glucose POC Glucose (mg/dL) 154 H Calcium Blood Type A Positive Antibody Screen Negative Crossmatch See Detail 08/17/18 08/17/18 08/17/18 12:08 14:08 17:46 WBC RBC Hgb Hct MCV MCH MCHC RDW Plt Count MPV Neut % (Auto) Lymph % (Auto) [place] % (Auto) Eos % (Auto) Baso % (Auto) Absolute Neuts (auto) Absolute Lymphs (auto) Absolute Monos (auto) Absolute Eos (auto) Absolute Basos (auto) Absolute Nucleated RBC Immature Gran % Neutrophils % Band Neutrophils % Lymphocytes % Monocytes % Metamyelocytes % Myelocytes % Nucleated RBC % Nucleated RBCs/100 WBC Normal RBC Morphology Polychromasia Hem Pathologist Commnt ABG pH 7.44 ABG pCO2 30 L ABG pO2 406 H ABG HCO3 22.9 ABG O2 Saturation 99.9 H ABG Base Excess -2.7 L Sodium Potassium Chloride Carbon Dioxide Anion Gap BUN Creatinine Est GFR ( Amer) Est GFR (Non-Af Amer) BUN/Creatinine Ratio Glucose POC Glucose (mg/dL) 199 H 205 H Calcium Blood Type Antibody Screen Crossmatch 08/17/18 08/17/18 08/18/18 19:40 23:25 03:38 WBC RBC Hgb Hct MCV MCH MCHC RDW Plt Count MPV Neut % (Auto) Lymph % (Auto) [place] % (Auto) Eos % (Auto) Baso % (Auto) Absolute Neuts (auto) Absolute Lymphs (auto) Absolute Monos (auto) Absolute Eos (auto) Absolute Basos (auto) Absolute Nucleated RBC Immature Gran % Neutrophils % Band Neutrophils % Lymphocytes % Monocytes % Metamyelocytes % Myelocytes % Nucleated RBC % Nucleated RBCs/100 WBC Normal RBC Morphology Polychromasia Hem Pathologist Commnt ABG pH ABG pCO2 ABG pO2 ABG HCO3 ABG O2 Saturation ABG Base Excess Sodium Potassium Chloride Carbon Dioxide Anion Gap BUN Creatinine Est GFR ( Amer) Est GFR (Non-Af Amer) BUN/Creatinine Ratio Glucose POC Glucose (mg/dL) 203 H 194 H 148 H Calcium Blood Type Antibody Screen Crossmatch 08/18/18 08/18/18 05:55 05:55 WBC 20.4 H RBC 3.85 L Hgb 11.8 L Hct 35 L MCV 91 MCH 31 MCHC 34 RDW 18 H Plt Count 200 MPV 7.0 L Neut % (Auto) Lymph % (Auto) [place] % (Auto) Eos % (Auto) Baso % (Auto) Absolute Neuts (auto) Absolute Lymphs (auto) Absolute Monos (auto) Absolute Eos (auto) Absolute Basos (auto) Absolute Nucleated RBC Immature Gran % Neutrophils % Band Neutrophils % Lymphocytes % Monocytes % Metamyelocytes % Myelocytes % Nucleated RBC % Nucleated RBCs/100 WBC Normal RBC Morphology Polychromasia Hem Pathologist Commnt ABG pH ABG pCO2 ABG pO2 ABG HCO3 ABG O2 Saturation ABG Base Excess Sodium 139 Potassium TNP Chloride 106 Carbon Dioxide 22 Anion Gap 11 BUN 12 Creatinine 0.61 L Est GFR ( Amer) 161.5 Est GFR (Non-Af Amer) 133.5 BUN/Creatinine Ratio 19.7 Glucose 127 H POC Glucose (mg/dL) Calcium 8.0 L Blood Type Antibody Screen Crossmatch Acetaminophen (Tylenol Tab*) 650 mg PO Q4H PRN PRN Reason: FEVER/PAIN Atorvastatin Calcium (Lipitor*) 40 mg PO QAM [facility] Last Admin: 08/17/18 08:25 Dose: Not Given Dexamethasone Sodium Phosphate (Decadron Iv*) 4 mg IV SLOW PU Q6H [facility] Last Admin: 08/18/18 01:51 Dose: 4 mg Dextrose (D50w Syringe 50 Ml*) 12.5 gm IV PUSH .FOR FS < 60 - SS PRN PRN Reason: FS < 60 Hydralazine HCl (Apresoline Iv*) 10 mg IV SLOW PU Q2H PRN PRN Reason: SYSTOLIC BP GREATER THAN: Last Admin: 08/17/18 18:33 Dose: 10 mg Lactated Ringer's (Lactated Ringers 1000 Ml Bag*) 1,000 mls @ 75 mls/hr IV .per rate [facility] Last Admin: 08/18/18 07:46 Dose: 75 mls/hr Levetiracetam (Keppra Iv Premix*) 500 mg in 100 mls @ 400 mls/hr IV Q12H [facility] Last Admin: 08/18/18 08:47 Dose: 400 mls/hr Nicardipine/Sodium Chloride (Cardene 0.1mg/Ml Ivpremix*) 20 mg in 200 mls @ 50 mls/hr IV PER RATE [facility]; Protocol Last Admin: 08/18/18 03:35 Dose: 20 mls/hr Insulin Human Lispro (Humalog*) 0 units SUBCUT FS Q4 ICU [facility]; Protocol Last Admin: 08/18/18 03:47 Dose: 2 unit Labetalol HCl (Trandate Iv*) 20 mg IV PUSH Q4HR [facility] Magnesium Sulfate (Epsom Salt*) 1 applic TOPICAL DAILY [facility] Last Admin: 08/17/18 09:58 Dose: Not Given Metoprolol Tartrate (Lopressor Iv*) 5 mg IV Q8H [facility] Last Admin: 08/18/18 03:08 Dose: Not Given Morphine Sulfate (Morphine 4 Mg/Ml Vial (1 Ml)) 1 mg IV Q4H PRN PRN Reason: PAIN - SEVERE Morphine Sulfate (Morphine Inj (Syringe))*) 1 mg IV Q2H PRN PRN Reason: PAIN Ondansetron HCl (Zofran Inj*) 4 mg IV Q6H PRN PRN Reason: NAUSEA Oxycodone/Acetaminophen (Percocet 5/325 Tab*) 1 tab PO Q4H PRN PRN Reason: PAIN - MODERATE Last Admin: 08/13/18 12:22 Dose: 1 tab Pantoprazole Sodium (Protonix Tab*) 40 mg PO DAILY [facility] Polyethylene Glycol/Electrolytes (Miralax*) 17 gm PO DAILY PRN PRN Reason: CONSTIPATION Senna (Senokot Tab*) 1 tab PO BEDTIME PRN PRN Reason: CONSTIPATION Assessment: 63 yo M w metastatic melanoma p/w symptomatic brain mets, now sp decompression with plan to resume palliative immunotherapy if/when recovers. Plan: -management per ICU/CCM and neurosurgery -oncology to continue to follow closely
[2018-08-18] MEDS: Labetalol IV* 5 MG/ML 20 ML VIAL IV PUSH SCH ×4 (09:18→21:48)
[2018-08-18] MEDS: Atorvastatin* 40 MG TAB PO SCH (09:24)
[2018-08-18] MEDS ORDERED: Pantoprazole IV* 40 MG IV SCH (11:00)
--- NOTE | 2018-08-18 11:55 | PN ---
Progress Note - Progress Note Date of Service: 08/18/18 - Progress note Note: Pt seen and examined at bedside. Overnight events noted. Labs, vitals, meds reviewed. Plan of care discussed with ICU team. Pt is 63 yo M with metastatic melanoma of the right toe, was previously immunotherapy, last dose received June 2018, however this had been suspended due to colitis, improving after treatment with Remicade and steriods. Since stopping immunotherapy the melanoma has spread back up the right calf into the groin. He presented to the ED on 08/12 with lethargy x 3 days. Pt also reported bleeding from toe amputation site, subjective fevers, weakness and confusion. On workup found to have multiple new masses in the brain with mass effect and midline shift. Neurosurgery consulted, was started on Decadron for vasogenic edema. 08/13: Seen by oncology. CT CAP obtained to complete metastatic workup. Plans for debulking surgery of right frontal brain met followed XRT for remaining brain lesions then palliative immunotherapy. Mental status improved on steriods. 08/14: Pt decided to proceed with surgery. 08/17: Went to OR for right frontal lobe resection. Post procedure transferred to ICU for further resuscitation and care. 08/18. Continues to have confusion since surgery though improving. Is oriented to self, less drowsy this am. Able to speak, follow commands, move all extremities and answer some questions. Persistent SBP >150 regardless of use of PRNs, was started on Cardene drip. At 0130- Pt vomited, pulled FERNANDO drain #2 from left lateral head. Ct brain repeated-showed moderate pneumocephalus, multiple hemorrhagic lesions seen in supratentorial brain, largest in Lt frontal lobe, increased in size. Active Medications Generic Name Dose Route Start Last Admin Trade Name Freq PRN Reason Stop Dose Admin Acetaminophen 650 mg 08/12/18 16:08 Tylenol Tab* PO Q4H PRN FEVER/PAIN Atorvastatin Calcium 40 mg 08/13/18 09:00 08/18/18 09:24 Lipitor* PO Not Given QAM DANIELLA Dexamethasone Sodium Phosphate 4 mg 08/17/18 19:30 08/18/18 09:18 Decadron Iv* IV SLOW PU 4 mg Q6H DANIELLA Administration Dextrose 12.5 gm 08/12/18 16:10 D50w Syringe 50 Ml* IV PUSH .FOR FS < 60 - SS PRN FS < 60 Famotidine 20 mg 08/18/18 11:10 Pepcid Iv* IV DAILY DANIELLA Hydralazine HCl 10 mg 08/17/18 18:21 08/17/18 18:33 Apresoline Iv* IV SLOW PU 10 mg Q2H PRN Administration SYSTOLIC BP GREATER THAN: Lactated Ringer's 1,000 mls @ 75 mls/hr 08/17/18 18:00 08/18/18 07:46 Lactated Ringers 1000 Ml Bag* IV 75 mls/hr .per rate DANIELLA Administration Levetiracetam 500 mg in 100 mls @ 400 mls/hr 08/17/18 21:00 08/18/18 08:47 Keppra Iv Premix* IV 400 mls/hr Q12H DANIELLA Administration Nicardipine/Sodium Chloride 20 mg in 200 mls @ 50 mls/hr 08/17/18 21:00 08/18 10:07 Cardene 0.1mg/Ml Ivpremix* IV 50 mls/hr PER RATE DANIELLA Administration Protocol 5 MG/HR Insulin Human Lispro 0 units 08/17/18 20:00 08/18/18 11:30 Humalog* SUBCUT Not Given FS Q4 ICU DANIELLA Protocol Labetalol HCl 20 mg 08/18/18 10:00 08/18/18 09:18 Trandate Iv* IV PUSH 20 mg Q4HR DANIELLA Administration Magnesium Sulfate 1 applic 08/15/18 11:30 08/17/18 09:58 Epsom Salt* TOPICAL Not Given DAILY COUNT INCLUDES THE [facility] Metoprolol Tartrate 5 mg 08/17/18 19:00 08/18/18 10:08 Lopressor Iv* IV 5 mg Q8H DANIELLA Administration Morphine Sulfate 1 mg 08/12/18 19:34 Morphine 4 Mg/Ml Vial (1 Ml) IV Q4H PRN PAIN - SEVERE Morphine Sulfate 1 mg 08/17/18 18:31 Morphine Inj (Syringe))* IV Q2H PRN PAIN Ondansetron HCl 4 mg 08/17/18 18:28 Zofran Inj* IV Q6H PRN NAUSEA Oxycodone/Acetaminophen 1 tab 08/12/18 19:34 08/13/18 12:22 Percocet 5/325 Tab* PO 1 tab Q4H PRN Administration PAIN - MODERATE Polyethylene Glycol/Electrolytes 17 gm 08/18/18 05:48 Miralax* PO DAILY PRN CONSTIPATION Senna 1 tab 08/18/18 05:48 Senokot Tab* PO BEDTIME PRN CONSTIPATION Vital Signs Temp Pulse Resp BP Pulse Ox 98.9 F 80 25 95/49 96 08/18/18 11:33 08/18/18 11:00 08/18/18 11:00 08/18/18 11:00 08/18/18 11:00 O/E: Pt in NAD, drowsy but wakes up with verbal stimuli HEENT: FERNANDO drain with serosanguinous discharge Lungs: Good a/e b/l CVS: S1, S2+ Abd: Soft, BS+ Ext: Melanoma lesions in rt leg Neuro: Drowsy but arousable, oriented to person, place, confused, pupils brisk, No motor weakness Laboratory Results - last 24 hr 08/16/18 08/17/18 08/17/18 17:39 07:06 10:10 WBC RBC Hgb Hct MCV MCH MCHC RDW Plt Count MPV Hem Pathologist Commnt ABG pH ABG pCO2 ABG pO2 ABG HCO3 ABG O2 Saturation ABG Base Excess Sodium Potassium Chloride Carbon Dioxide Anion Gap BUN Creatinine Est GFR ( Amer) Est GFR (Non-Af Amer) BUN/Creatinine Ratio Glucose POC Glucose (mg/dL) 154 H Calcium Blood Type A Positive Antibody Screen Negative Crossmatch See Detail 08/17/18 08/17/18 08/17/18 12:08 14:08 17:46 WBC RBC Hgb Hct MCV MCH MCHC RDW Plt Count MPV Hem Pathologist Commnt ABG pH 7.44 ABG pCO2 30 L ABG pO2 406 H ABG HCO3 22.9 ABG O2 Saturation 99.9 H ABG Base Excess -2.7 L Sodium Potassium Chloride Carbon Dioxide Anion Gap BUN Creatinine Est GFR ( Amer) Est GFR (Non-Af Amer) BUN/Creatinine Ratio Glucose POC Glucose (mg/dL) 199 H 205 H Calcium Blood Type Antibody Screen Crossmatch 08/17/18 08/17/18 08/18/18 19:40 23:25 03:38 WBC RBC Hgb Hct MCV MCH MCHC RDW Plt Count MPV Hem Pathologist Commnt ABG pH ABG pCO2 ABG pO2 ABG HCO3 ABG O2 Saturation ABG Base Excess Sodium Potassium Chloride Carbon Dioxide Anion Gap BUN Creatinine Est GFR ( Amer) Est GFR (Non-Af Amer) BUN/Creatinine Ratio Glucose POC Glucose (mg/dL) 203 H 194 H 148 H Calcium Blood Type Antibody Screen Crossmatch 08/18/18 08/18/18 05:55 05:55 WBC 20.4 H RBC 3.85 L Hgb 11.8 L Hct 35 L MCV 91 MCH 31 MCHC 34 RDW 18 H Plt Count 200 MPV 7.0 L Hem Pathologist Commnt ABG pH ABG pCO2 ABG pO2 ABG HCO3 ABG O2 Saturation ABG Base Excess Sodium 139 Potassium TNP Chloride 106 Carbon Dioxide 22 Anion Gap 11 BUN 12 Creatinine 0.61 L Est GFR ( Amer) 161.5 Est GFR (Non-Af Amer) 133.5 BUN/Creatinine Ratio 19.7 Glucose 127 H POC Glucose (mg/dL) Calcium 8.0 L Blood Type Antibody Screen Crossmatch A/P: 63 y o with metastatic melanoma with symptomatic brain mets s/p decompression, POD#1. Pt with confusion with slight improvement since last night, still not able to follow commands completely 1.Metastatic melanoma 2.Brain mets s/p decompression sx POD#1 3.AMS Plan: Neuro: Metastatic melanoma with symptomatic brain mets s/p decompression. Confusion, improving, speech still monosyllable. CT brain showed moderate pneumocephalus, multiple hemorrhagic lesions seen in supratentorial brain, largest in Lt frontal lobe, increased in size. Neuro f/u noted. c/w decadron. Frequent neuro monitoring. Pulled one of drains last night, other drain putting out sero sanguinous fluid. Aspiration, fall and seizure precautions. On Keppra for seizure prophylaxis. On Morphine for pain. Resp: Able to maintain airway. Pt on RA, O2 sat around 96%. Keep HOB elevated to 30 degrees. CVS: Was hypertensive, on Nicardipine drip, BP around 150 systolic. A-line in place. Keep SBP less than 140. Pt with h/o HTN. GI: NPO until neuro status improves. Elevated Alk. Pt with multiple hypodense lesions in liver, likely mets. Recent immunotherapy induced colitis. Will hold po meds. Endocrine: h/o DM-II, monitor BG, Sliding scale insulin. Pt on Dexametasone to decrease cerebral edema. Renal: Hypokalemia, repleted. Will rpt BMP later today. c/w IVF at 75/hr. ID: Leucocytosis sec to steroids. Low grade fever. Received perioperative abx . On isolation for MRSA in nares. No need for abx now. Haem/Onc: Anemia, stable. Metastatic melanoma, possible palliative immunotherapy if he recovers. DVT px: SCDs, no anticoagulation sec to neuro sx GI px: Pt on Pantoprazole at home, changed to Ranitidine IV as pt not able to take PO Condition: Critical Prognosis: Poor Code: Full code
[2018-08-18 12:04] LABS: Potassium Redraw 2.6 mmol/L (3.5-5.0)
[2018-08-18] MEDS: KCL 20 MEQ/100 ML IVPREMIX* 20 MEQ/100 ML BAG IV SCH ×3 (12:49→17:40)
[2018-08-18] MEDS: Famotidine IV* 10 MG/ML 2 ML (20 mg) IV SCH (12:49)
[2018-08-18 13:10] LABS: Magnesium 1.3 mg/dL (1.9-2.7)
[2018-08-18 13:13] LABS: CO2 Carbon Dioxide 22 mmol/L (22-32); Calcium 6.8 mg/dL (8.6-10.3); Chloride 111 mmol/L (101-111); Sodium 141 mmol/L (135-145)
[2018-08-18 13:14] LABS: Anion Gap 8 mmol/L (2-11)
[2018-08-18 13:16] LABS: BUN/Creatinine Ratio 18.8 (8-20); Blood Urea Nitrogen 9 mg/dL (6-24); Glucose 94 mg/dL (70-100)
[2018-08-18] MEDS ORDERED: Magnesium Sulfate 2 GM IV* 2 GM/50 ML BAG IVPB ONE (14:45)
[2018-08-18] MEDS ORDERED: NS 0.9% 1000 ML** 1,000 ML IV SCH (14:45)
--- NOTE | 2018-08-18 15:25 | PN ---
Progress Note - Progress Note Date of Service: 08/18/18 - Progress update Note: RN expressed concern that pt has been less verbal at routine neuro check. Pt was seen and examined at bedside. pts at bedside. She has reproted that pt aware and acknowledged that she was in room. Pt responded to his name, says he feels great!. Was slow to follow commands however was able to move all 4 extremities, was able to close and open eyes, able to smile, pupils brisk and reactive to light. Able to protect airway. Last bl sugar above 100. Receiving Ringers lactate at 75. SBP around 135, HR 80` s, O2 sat around 94-95% Pt denied pain. UO is steady MRI pending, no urgency as per neuro sx Updated pts condition and discussed prognosis with pt`s at bedside. She became emotional Pt is full code
[2018-08-18] MEDS: Magnesium Sulfate CRYSTAL* 454 GM BOX TOPICAL SCH (17:40)
[2018-08-18 20:48] LABS: CO2 Carbon Dioxide 20 mmol/L (22-32); Calcium 8.4 mg/dL (8.6-10.3); Chloride 104 mmol/L (101-111); Magnesium 2.2 mg/dL (1.9-2.7); Sodium 135 mmol/L (135-145)
[2018-08-18 20:51] LABS: Anion Gap 11 mmol/L (2-11)
[2018-08-18 20:53] LABS: BUN/Creatinine Ratio 17.1 (8-20); Blood Urea Nitrogen 12 mg/dL (6-24); EGFR African American 137.8 (>60); EGFR Non-African American 113.9 (>60); Glucose 191 mg/dL (70-100)
[2018-08-19] MEDS: Dexamethasone IV* 4 MG/ML 1 ML (4 MG) IV SLOW PU SCH ×4 (01:09→20:45)
[2018-08-19] MEDS: Labetalol IV* 5 MG/ML 20 ML VIAL IV PUSH SCH ×7 (01:09→21:28)
[2018-08-19] MEDS: Metoprolol Tartrate IV* 1 MG/ML 5 ML VIAL IV SCH ×3 (03:00→20:45)
[2018-08-19] MEDS: Lactated Ringers 1000 ML Bag* 1,000 ML IV SCH (03:43)
--- NOTE | 2018-08-19 04:02 | OP ---
DATE OF OPERATION: 08/16/18 - ROOM #447 DATE OF : 55 SURGEON: Dr. Rocio Marroquin. CO-SURGEON: Dr. Camilo Osorio. CLUSTER BORE OPERATOR: Saroj Cordvoa PA-C. The case was done with the assistance of an attending physician and surgical PA because of the complexity of the case. ANESTHESIA: General. PRE-OP DIAGNOSIS: Metastatic brain disease, possible melanoma. POST-OP DIAGNOSIS: Metastatic brain disease, possible melanoma. OPERATIVE PROCEDURE: The patient underwent bicoronal incision for right frontal craniotomy for resection of right frontal tumor. ESTIMATED BLOOD LOSS: 75 cc. COMPLICATIONS: None. SUMMARY: The patient is a very pleasant 63-year-old gentleman with a history of melanoma with amputation of his right great toe with MRI findings consistent with multiple brain lesions, the largest of which was in the right frontal lobe. After discussing the expectations, limitations, and possible complications of the procedure with the patient and his significant other as well as his sister, the patient was offered the option of surgical intervention for resection/biopsy of the right frontal lesion to facilitate further treatments with radiation and to decrease mass effect. After explaining the expectations, limitations, and possible complications of the procedure with the complications including, but not limited to bleeding, infection, risk of injury to adjacent structures, paralysis, , need for additional procedures, anesthesia risks, stroke, blindness, cancer, recurrence of the tumor, inability to remove the whole tumor, need for further procedures, need for prolonged hospitalization, need for prolonged ICU stay or prolonged rehabilitation, need for tracheostomy, gastrostomy, paralysis, and loss of mental functions, the patient and his family agreed to proceed with surgery and informed consent was obtained. The patient and his family understood that his condition may not improve and in fact may get worse after the surgery and that he may need to have additional procedures in the future. He also understood that the operative plan may be modified according to intraoperative findings and conditions and that the case may be abandoned or done in more than 1 stage. DESCRIPTION OF PROCEDURE: The patient was brought to the operating room and was placed under general anesthesia by the anesthesia team. His head was secured in the 3-point [place] head frame and the navigation star was attached to the brain. The patient's head was registered with the [facility] navigation system and also, all bony prominences were meticulously padded. Hair was removed with a surgical clipper and with the assistance of stereotactic navigation, surgical planning was performed. A bicoronal incision was marked on the skin. The skin was prepped and draped in a standard fashion, and after appropriate surgical pause and patient identification, the skin incision site was infiltrated with local anesthetic. A #10 surgical blade was used to incise the skin and the incision was carried down to the periosteum and to the scalp. Then, attention was brought to elevate the skin flap anteriorly with the use of periosteal elevators. The skin was then folded gently over a folded gauze and secured in place with fish hooks. Multiple courtney hole sites were marked on the skull with assistance of stereotactic navigation and a high-speed drill was used to fashion multiple courtney holes, one in the garcia hole into the right frontal flap, staying slightly to the right of midline. The courtney holes were then corrected with craniotome to fashion the right frontal craniotomy. The bone flap was gently elevated and after securing the dura with tack-up sutures, secured in suture holes made with a high-speed drill in the periphery of the craniotomy. The dura was then incised with the use of #15 blade and Metzenbaum scissors. The dural flap was then reflected medially over the sagittal sinus and the surface of the brain was gently exposed. After confirmation of meticulous hemostasis, the navigation probe was used to identify the margins of the tumor. The exploration of the tumor was identified in the anterior frontal pole and a small corticectomy was performed with bipolar cautery and #15 surgical blade. The tumor margins were then identified and upon entering the tumor, hemorrhagic fluid was revealed, which was then suctioned to decrease the volume of the lesion. Then, the tumor was gently removed with the use of bipolar cautery, Sonopet, and gentle aspiration while a partial lobectomy was performed to confirm adequate tumor exposure and resection. Of note, significant edema and discoloration of the tumor tissue was identified and it was resected to the levels of healthy tissue. The remnants of the anterior pole of the frontal lobe was also resected with subpial dissection with use of Sonopet and gentle suction. Stereotactic navigation confirmed inclusion of all margins of the tumor in the resection plane and this was confirmed with visual meticulous inspection under magnification. Tumor specimen was sent for pathological examination. After confirmation of meticulous hemostasis and copious irrigation, the resection cavity was covered with Surgicel and a small amount of Surgifoam, and after copious irrigation, meticulous inspection, and confirmation of meticulous hemostasis, the dura was reflected back and was reapproximated with 4-0 Nurolon sutures, while the small gaps were covered with DuraGen. Tack-up dural suture was placed in the middle of the flap and two suture holes were fashioned with high-speed drill in the middle of the bone flap. Multiple courtney hole covers were used and the flap was secured back in its position with the use of titanium screws. Two Richard drains were positioned in place and tunneled through separate stab wound incisions while the skin flap was repositioned in its original place and secured with multiple 2-0 inverted interrupted Vicryl sutures while the temporalis fascia was approximated with 2- 0 interrupted Vicryl sutures. The skin was then approximated with running 3-0 nylon suture and the skin incision was covered with Xeroform and sterile dressings. The drains were then attached to bulb suction and the wound was covered with sterile dressings. At the end of the procedure all counts were reported to be correct. Patient remained hemodynamically stable throughout the case. The patient was then gently removed from the pin head housekeeper and was extubated and was transferred to recovery in excellent condition. The case was done with the assistance of a second attending as well as the surgical PA because of the complexity of the case. [id number]/CPS #: [id number] PAOLA
[2018-08-19] MEDS: niCARdipine 0.1MG/ML IVPREMIX* 20 MG/200 ML BAG IV SCH (04:30)
[2018-08-19] MEDS: Insulin LISPRO* 1 UNITS UNIT SUBCUT SCH ×5 (04:31→21:45)
[2018-08-19 04:36] LABS: ABS Lymphocytes 0.9 10^3/ul (1.0-4.8); ABS Monocytes 0.4 10^3/ul (0-0.8); ABS Neutrophils 12.6 10^3/ul (1.5-7.7); Eosinophil % 0.1 %; Hematocrit 35 % (42-52); Hemoglobin 11.5 g/dL (14.0-18.0); Lymphocyte % 6.2 %; Mean Corpuscular HGB Conc 33 g/dL (31-36); Mean Corpuscular Hemoglobin 30 pg (27-31); Mean Corpuscular Volume 92 fL (80-94); Mean Platelet Volume 6.7 fL (7.4-10.4); Platelet Count 232 10^3/uL (150-450); Red Blood Count 3.78 10^6 /uL (4.18-5.48); Red Cell Distribution Width 18 % (10-15); White Blood Count 13.8 10^3/uL (3.5-10.8)
[2018-08-19 04:51] LABS: BUN/Creatinine Ratio 22.2 (8-20); Calcium 8.5 mg/dL (8.6-10.3); EGFR African American 155.6 (>60); EGFR Non-African American 128.6 (>60); Potassium 3.9 mmol/L (3.5-5.0)
[2018-08-19] MEDS: levETIRAcetam 500 MG IVPREMIX* 500 MG/100 ML BAG IV SCH ×2 (08:33→21:25)
[2018-08-19] MEDS: Famotidine IV* 10 MG/ML 2 ML (20 mg) IV SCH (08:33)
--- NOTE | 2018-08-19 09:25 | PN ---
Progress Note - Progress Note Date of Service: 08/19/18 SOAP: Subjective: 73 y/o male s/p resection of right frontal metastatic brain lesion POD # 2. He has been stable overnight, he alert and oriented with mild confusion, he is able to give first and last name, along . Patient was not able to tell me where he is, but correctly identified the president. He denies any head aches nausea or vomiting. He still periodically attempts to pull at drain and lines. Patient pulled out left drain, right drain still intact has recorded output of 20. His pain and blood pressure have been well controlled. Objective: General:Patient in bed sitting up NAD, speech is clear Neruo: GCS 15, A&O x 2 CN II - XII grossly intact, pupil size symmetric, EOM's intact constrict to light bilateral, negative Romberg, Motor strength 5/5 in all extremities. Assessment: 63 y/o male post resection of metastatic right frontal lobe brain lesion, recovering well, confusion continues to prove each day. Plan: D/C arterial line continue to monitor drain output
--- NOTE | 2018-08-19 09:37 | PN ---
Progress Note - Progress Note Date of Service: 08/19/18 SOAP: Subjective: much more alert today. knows that he is in the [place] [facility]. denies any pain. Objective: Vital Signs Temp Pulse Resp BP Pulse Ox 98.1 F 79 14 108/68 96 08/19/18 07:15 08/19/18 08:00 08/19/18 08:00 08/19/18 08:00 08/19/18 08:00 perr eomi op moist CTA anteriorly s1 s2 nl soft nt +bs no le edema melanoma lesions tracking right calf head dressed, FERNANDO drain in place w serosanginous fluid much more alert, moving all extremities, following commands Laboratory Results - last 24 hr 08/18/18 08/18/18 08/18/18 09:01 11:25 11:25 WBC RBC Hgb Hct MCV MCH MCHC RDW Plt Count MPV Neut % (Auto) Lymph % (Auto) [place] % (Auto) Eos % (Auto) Baso % (Auto) Absolute Neuts (auto) Absolute Lymphs (auto) Absolute Monos (auto) Absolute Eos (auto) Absolute Basos (auto) Absolute Nucleated RBC Nucleated RBC % Sodium 141 Potassium 2.6 L* TNP Chloride 111 Carbon Dioxide 22 Anion Gap 8 BUN 9 Creatinine 0.48 L Est GFR ( Amer) 213.0 Est GFR (Non-Af Amer) 176.0 BUN/Creatinine Ratio 18.8 Glucose 94 POC Glucose (mg/dL) 102 H Calcium 6.8 L Magnesium 1.3 L 08/18/18 08/18/18 08/18/18 11:25 14:59 20:27 WBC RBC Hgb Hct MCV MCH MCHC RDW Plt Count MPV Neut % (Auto) Lymph % (Auto) [place] % (Auto) Eos % (Auto) Baso % (Auto) Absolute Neuts (auto) Absolute Lymphs (auto) Absolute Monos (auto) Absolute Eos (auto) Absolute Basos (auto) Absolute Nucleated RBC Nucleated RBC % Sodium Potassium Chloride Carbon Dioxide Anion Gap BUN Creatinine Est GFR ( Amer) Est GFR (Non-Af Amer) BUN/Creatinine Ratio Glucose POC Glucose (mg/dL) 88 169 H 191 H Calcium Magnesium 08/18/18 08/18/18 08/19/18 20:29 23:42 00:01 WBC RBC Hgb Hct MCV MCH MCHC RDW Plt Count MPV Neut % (Auto) Lymph % (Auto) [place] % (Auto) Eos % (Auto) Baso % (Auto) Absolute Neuts (auto) Absolute Lymphs (auto) Absolute Monos (auto) Absolute Eos (auto) Absolute Basos (auto) Absolute Nucleated RBC Nucleated RBC % Sodium 135 Potassium TNP 3.9 Chloride 104 Carbon Dioxide 20 L Anion Gap 11 BUN 12 Creatinine 0.70 Est GFR ( Amer) 137.8 Est GFR (Non-Af Amer) 113.9 BUN/Creatinine Ratio 17.1 Glucose 191 H POC Glucose (mg/dL) 189 H Calcium 8.4 L Magnesium 2.2 08/19/18 08/19/18 08/19/18 04:25 04:25 04:25 WBC 13.8 H RBC 3.78 L Hgb 11.5 L Hct 35 L MCV 92 MCH 30 MCHC 33 RDW 18 H Plt Count 232 MPV 6.7 L Neut % (Auto) 91.0 Lymph % (Auto) 6.2 [place] % (Auto) 2.5 Eos % (Auto) 0.1 Baso % (Auto) 0.2 Absolute Neuts (auto) 12.6 H Absolute Lymphs (auto) 0.9 L Absolute Monos (auto) 0.4 Absolute Eos (auto) 0.0 Absolute Basos (auto) 0.0 Absolute Nucleated RBC 0.0 Nucleated RBC % 0.0 Sodium 135 Potassium 3.9 Chloride 103 Carbon Dioxide 23 Anion Gap 9 BUN 14 Creatinine 0.63 L Est GFR ( Amer) 155.6 Est GFR (Non-Af Amer) 128.6 BUN/Creatinine Ratio 22.2 H Glucose 224 H POC Glucose (mg/dL) 224 H Calcium 8.5 L Magnesium Acetaminophen (Tylenol Tab*) 650 mg PO Q4H PRN PRN Reason: FEVER/PAIN Atorvastatin Calcium (Lipitor*) 40 mg PO QAM [facility] Last Admin: 08/18/18 09:24 Dose: Not Given Dexamethasone Sodium Phosphate (Decadron Iv*) 4 mg IV SLOW PU Q6H [facility] Last Admin: 08/19/18 08:33 Dose: 4 mg Dextrose (D50w Syringe 50 Ml*) 12.5 gm IV PUSH .FOR FS < 60 - SS PRN PRN Reason: FS < 60 Famotidine (Pepcid Iv*) 20 mg IV DAILY [facility] Last Admin: 08/19/18 08:33 Dose: 20 mg Hydralazine HCl (Apresoline Iv*) 10 mg IV SLOW PU Q2H PRN PRN Reason: SYSTOLIC BP GREATER THAN: Last Admin: 08/17/18 18:33 Dose: 10 mg Lactated Ringer's (Lactated Ringers 1000 Ml Bag*) 1,000 mls @ 75 mls/hr IV .per rate [facility] Last Admin: 08/19/18 03:43 Dose: 75 mls/hr Levetiracetam (Keppra Iv Premix*) 500 mg in 100 mls @ 400 mls/hr IV Q12H [facility] Last Admin: 08/19/18 08:33 Dose: 400 mls/hr Nicardipine/Sodium Chloride (Cardene 0.1mg/Ml Ivpremix*) 20 mg in 200 mls @ 50 mls/hr IV PER RATE [facility]; Protocol Last Admin: 08/19/18 04:30 Dose: 30 mls/hr Insulin Human Lispro (Humalog*) 0 units SUBCUT FS Q4 ICU [facility]; Protocol Last Admin: 08/19/18 04:31 Dose: 6 unit Labetalol HCl (Trandate Iv*) 20 mg IV PUSH Q4HR [facility] Last Admin: 08/19/18 06:00 Dose: 20 mg Magnesium Sulfate (Epsom Salt*) 1 applic TOPICAL DAILY [facility] Last Admin: 08/18/18 17:40 Dose: Not Given Metoprolol Tartrate (Lopressor Iv*) 5 mg IV Q8H [facility] Last Admin: 08/19/18 03:00 Dose: 5 mg Morphine Sulfate (Morphine 4 Mg/Ml Vial (1 Ml)) 1 mg IV Q4H PRN PRN Reason: PAIN - SEVERE Morphine Sulfate (Morphine Inj (Syringe))*) 1 mg IV Q2H PRN PRN Reason: PAIN Ondansetron HCl (Zofran Inj*) 4 mg IV Q6H PRN PRN Reason: NAUSEA Oxycodone/Acetaminophen (Percocet 5/325 Tab*) 1 tab PO Q4H PRN PRN Reason: PAIN - MODERATE Last Admin: 08/13/18 12:22 Dose: 1 tab Polyethylene Glycol/Electrolytes (Miralax*) 17 gm PO DAILY PRN PRN Reason: CONSTIPATION Senna (Senokot Tab*) 1 tab PO BEDTIME PRN PRN Reason: CONSTIPATION Assessment: 63 yo M w metastatic melanoma p/w symptomatic brain mets, now sp decompression with plan to resume palliative immunotherapy if/when recovers. Plan: -management per ICU/CCM and neurosurgery -oncology to continue to follow closely -Dr. Lopez to d/w neurosurg when can resume DVT prophylaxis (clearly high risk)
--- NOTE | 2018-08-19 11:04 | PN ---
Progress Note - Progress Note Date of Service: 08/19/18 - Progress note Note: Pt seen and examined at bedside. Pt reports feeling better. He is more alert today, is oriented to place, time and person. He denies any pain. No acute events in ICU Active Medications Generic Name Dose Route Start Last Admin Trade Name Freq PRN Reason Stop Dose Admin Acetaminophen 650 mg 08/12/18 16:08 Tylenol Tab* PO Q4H PRN FEVER/PAIN Atorvastatin Calcium 40 mg 08/13/18 09:00 08/18/18 09:24 Lipitor* PO Not Given QAM DANIELLA Dexamethasone Sodium Phosphate 4 mg 08/17/18 19:30 08/19/18 08:33 Decadron Iv* IV SLOW PU 4 mg Q6H DANIELLA Administration Dextrose 12.5 gm 08/12/18 16:10 D50w Syringe 50 Ml* IV PUSH .FOR FS < 60 - SS PRN FS < 60 Famotidine 20 mg 08/18/18 11:10 08/19/18 08:33 Pepcid Iv* IV 20 mg DAILY DANIELLA Administration Hydralazine HCl 10 mg 08/17/18 18:21 08/17/18 18:33 Apresoline Iv* IV SLOW PU 10 mg Q2H PRN Administration SYSTOLIC BP GREATER THAN: Lactated Ringer's 1,000 mls @ 75 mls/hr 08/17/18 18:00 08/19/18 03:43 Lactated Ringers 1000 Ml Bag* IV 75 mls/hr .per rate DANIELLA Administration Levetiracetam 500 mg in 100 mls @ 400 mls/hr 08/17/18 21:00 08/19/18 08:33 Keppra Iv Premix* IV 400 mls/hr Q12H DANIELLA Administration Nicardipine/Sodium Chloride 20 mg in 200 mls @ 50 mls/hr 08/17/18 21:00 08/19 04:30 Cardene 0.1mg/Ml Ivpremix* IV 30 mls/hr PER RATE DANIELLA Administration Protocol 5 MG/HR Insulin Human Lispro 0 units 08/17/18 20:00 08/19/18 09:39 Humalog* SUBCUT 3 unit FS Q4 ICU DANIELLA Administration Protocol Labetalol HCl 20 mg 08/18/18 10:00 08/19/18 09:39 Trandate Iv* IV PUSH 20 mg Q4HR DANIELLA Administration Magnesium Sulfate 1 applic 08/15/18 11:30 08/18/18 17:40 Epsom Salt* TOPICAL Not Given DAILY DANIELLA Metoprolol Tartrate 5 mg 08/17/18 19:00 08/19/18 03:00 Lopressor Iv* IV 5 mg Q8H DANIELLA Administration Morphine Sulfate 1 mg 08/12/18 19:34 Morphine 4 Mg/Ml Vial (1 Ml) IV Q4H PRN PAIN - SEVERE Morphine Sulfate 1 mg 08/17/18 18:31 Morphine Inj (Syringe))* IV Q2H PRN PAIN Ondansetron HCl 4 mg 08/17/18 18:28 Zofran Inj* IV Q6H PRN NAUSEA Oxycodone/Acetaminophen 1 tab 08/12/18 19:34 08/13/18 12:22 Percocet 5/325 Tab* PO 1 tab Q4H PRN Administration PAIN - MODERATE Polyethylene Glycol/Electrolytes 17 gm 08/18/18 05:48 Miralax* PO DAILY PRN CONSTIPATION Senna 1 tab 08/18/18 05:48 Senokot Tab* PO BEDTIME PRN CONSTIPATION Vital Signs Temp Pulse Resp BP Pulse Ox 98.1 F 79 14 108/68 96 08/19/18 07:15 08/19/18 08:00 08/19/18 08:00 08/19/18 08:00 08/19/18 08:00 O/E: Pt in NAD, alert, awake HEENT: FERNANDO drain with serosanguinous discharge Lungs: Good a/e b/l CVS: S1, S2+ Abd: Soft, BS+ Ext: Melanoma lesions in rt leg Neuro: Alert, oriented to person, place, time, able to follow commands Laboratory Results - last 24 hr 08/18/18 08/18/18 08/18/18 09:01 11:25 11:25 WBC RBC Hgb Hct MCV MCH MCHC RDW Plt Count MPV Neut % (Auto) Lymph % (Auto) Yell % (Auto) Eos % (Auto) Baso % (Auto) Absolute Neuts (auto) Absolute Lymphs (auto) Absolute Monos (auto) Absolute Eos (auto) Absolute Basos (auto) Absolute Nucleated RBC Nucleated RBC % Sodium 141 Potassium 2.6 L* TNP Chloride 111 Carbon Dioxide 22 Anion Gap 8 BUN 9 Creatinine 0.48 L Est GFR ( Amer) 213.0 Est GFR (Non-Af Amer) 176.0 BUN/Creatinine Ratio 18.8 Glucose 94 POC Glucose (mg/dL) 102 H Calcium 6.8 L Magnesium 1.3 L 08/18/18 08/18/18 08/18/18 11:25 14:59 20:27 WBC RBC Hgb Hct MCV MCH MCHC RDW Plt Count MPV Neut % (Auto) Lymph % (Auto) Yell % (Auto) Eos % (Auto) Baso % (Auto) Absolute Neuts (auto) Absolute Lymphs (auto) Absolute Monos (auto) Absolute Eos (auto) Absolute Basos (auto) Absolute Nucleated RBC Nucleated RBC % Sodium Potassium Chloride Carbon Dioxide Anion Gap BUN Creatinine Est GFR ( Amer) Est GFR (Non-Af Amer) BUN/Creatinine Ratio Glucose POC Glucose (mg/dL) 88 169 H 191 H Calcium Magnesium 08/18/18 08/18/18 08/19/18 20:29 23:42 00:01 WBC RBC Hgb Hct MCV MCH MCHC RDW Plt Count MPV Neut % (Auto) Lymph % (Auto) Yell % (Auto) Eos % (Auto) Baso % (Auto) Absolute Neuts (auto) Absolute Lymphs (auto) Absolute Monos (auto) Absolute Eos (auto) Absolute Basos (auto) Absolute Nucleated RBC Nucleated RBC % Sodium 135 Potassium TNP 3.9 Chloride 104 Carbon Dioxide 20 L Anion Gap 11 BUN 12 Creatinine 0.70 Est GFR ( Amer) 137.8 Est GFR (Non-Af Amer) 113.9 BUN/Creatinine Ratio 17.1 Glucose 191 H POC Glucose (mg/dL) 189 H Calcium 8.4 L Magnesium 2.2 08/19/18 08/19/18 08/19/18 04:25 04:25 04:25 WBC 13.8 H RBC 3.78 L Hgb 11.5 L Hct 35 L MCV 92 MCH 30 MCHC 33 RDW 18 H Plt Count 232 MPV 6.7 L Neut % (Auto) 91.0 Lymph % (Auto) 6.2 Yell % (Auto) 2.5 Eos % (Auto) 0.1 Baso % (Auto) 0.2 Absolute Neuts (auto) 12.6 H Absolute Lymphs (auto) 0.9 L Absolute Monos (auto) 0.4 Absolute Eos (auto) 0.0 Absolute Basos (auto) 0.0 Absolute Nucleated RBC 0.0 Nucleated RBC % 0.0 Sodium 135 Potassium 3.9 Chloride 103 Carbon Dioxide 23 Anion Gap 9 BUN 14 Creatinine 0.63 L Est GFR ( Amer) 155.6 Est GFR (Non-Af Amer) 128.6 BUN/Creatinine Ratio 22.2 H Glucose 224 H POC Glucose (mg/dL) 224 H Calcium 8.5 L Magnesium A/P: 63 y o with metastatic melanoma with symptomatic brain mets s/p decompression, POD#2. Pt with improved mental status 1.Metastatic melanoma 2.Brain mets s/p decompression sx POD#2 Plan: Neuro: Metastatic melanoma with symptomatic brain mets s/p decompression. Mental status much improved. CT brain showed moderate pneumocephalus, multiple hemorrhagic lesions seen in supratentorial brain, largest in Lt frontal lobe, increased in size. MRI pending, neuro sx f/u noted. Pt to have drain in place. c /w decadron. Frequent neuro monitoring. Aspiration, fall and seizure precautions. On Keppra for seizure prophylaxis. On Morphine for pain. Resp: Able to maintain airway. Pt on RA, O2 sat around 96%. Keep HOB elevated to 30 degrees. Encourage deep breathing. CVS: Was hypertensive, required Nicardipine drip, BP around 140 systolic. A- line in place. Keep SBP less than 140. Pt with h/o HTN. Will start oral agents today after bedside swallow evaluation. GI: NPO since sx. Mental status improved, will do bedside swallow eval and start oral feeds. Elevated Alk. Pt with multiple hypodense lesions in liver, likely mets. Recent immunotherapy induced colitis. Will start po meds if passes swallow evaluation. Endocrine: h/o DM-II, monitor BG, Sliding scale insulin. Pt on Dexametasone to decrease cerebral edema. Renal: Hypokalemia, repleted. Reviewed BMP. c/w IVF at 75/hr, will stop fluids when pt able to take po. ID: Leucocytosis sec to steroids, trending down. Low grade fever. Received perioperative abx . On isolation for MRSA in nares. No need for abx now. Haem/Onc: Anemia, stable. Metastatic melanoma, possible palliative immunotherapy if he recovers. DVT px: SCDs, will check with neuro sx if OK to start Heparin sq GI px: Pt on Pantoprazole at home, changed to Ranitidine IV as pt not able to take PO Will leave A-line until pt off Nicardipine drip Condition: Stable Prognosis: Poor Code: Full code D/w pt and at bedside. D/w Dr Disla
[2018-08-19] MEDS: Magnesium Sulfate CRYSTAL* 454 GM BOX TOPICAL SCH (14:10)
[2018-08-19] MEDS: Atorvastatin* 40 MG TAB PO SCH (16:09)
[2018-08-20] MEDS ORDERED: hydrALAZINE IV* 20 MG/ML VIAL IV SLOW PU PRN (01:01)
--- NOTE | 2018-08-20 01:03 | PN ---
Hospitalist Progress Note Date of Service: 08/20/18 Called regarding BP meds for this pt who is s/p frontal lobe met debulking-goal BP SBP 100-140, home meds Ramipril, Metoprolol oral -Was in ICU on cardene gtt, transitioned to Labetalol, Metoprolol IV with PRN Hydralazine -I see no need for dual agent BB, d/c labetalol, continue Metop IV 5mg q 6 hours with holding parameters, consider transition to oral home dose -If SBP > 140, use PRN Hydralazine
[2018-08-20] MEDS: Dexamethasone IV* 4 MG/ML 1 ML (4 MG) IV SLOW PU SCH ×6 (01:04→23:03)
[2018-08-20] MEDS: Insulin LISPRO* 1 UNITS UNIT SUBCUT SCH ×7 (01:04→20:44)
[2018-08-20] MEDS: Gabapentin CAP(*) 100 MG PO SCH (01:04)
[2018-08-20] MEDS: Metoprolol Tartrate IV* 1 MG/ML 5 ML VIAL IV SCH ×2 (01:14→07:20)
[2018-08-20] MEDS: Lactated Ringers 1000 ML Bag* 1,000 ML IV SCH (08:16)
[2018-08-20] MEDS: Famotidine IV* 10 MG/ML 2 ML (20 mg) IV SCH (08:20)
[2018-08-20] MEDS: levETIRAcetam 500 MG IVPREMIX* 500 MG/100 ML BAG IV SCH ×2 (08:20→20:48)
[2018-08-20] MEDS: Atorvastatin* 40 MG TAB PO SCH (08:23)
--- NOTE | 2018-08-20 09:03 | PN ---
Progress Note - Progress Note Date of Service: 08/20/18 SOAP: Subjective: 63 y/o male s/p resection of right frontal metastatic brain lesion POD # 3. He has been stable overnight, he alert and oriented with mild confusion, he is able to give first and last name, along . Patient was not able to tell me where he is, but correctly identified the president. He denies any head aches nausea or vomiting. He transferred out ICU to 4 th floor overnight. Today he is more alert, able state first and last name and current location. His vitals have been stable over night. FERNANDO drain put out 35 overnight. Objective: Vital Signs - 12 hr Temp Pulse Resp BP Pulse Ox 08/20/18 08:01 97.9 F 58 19 127/71 97 08/20/18 07:47 19 08/20/18 03:20 98.2 F 64 18 135/67 97 08/19/18 23:01 97.8 F 70 18 105/63 95 08/19/18 21:09 72 117/61 General:Patient in bed sitting up NAD, speech is clear Neruo: GCS 15, A&O x 2 CN II - XII grossly intact, pupil size symmetric, EOM's intact constrict to light bilateral, negative Romberg, Motor strength 5/5 in all extremities. Derm: No swelling around incision, FERNANDO right drain intact wound C/D/I Assessment: 63 y/o male post resection of right frontal lobe metastatic tumor POD # 3, patient is more alert and recovering well, will start to increasing activity. Plan: 1) Follow up MRI today 2) Start getting patient out of bed to chair 3) Have patient walk with PT/OT 4) Continue to monitor drain out put.
[2018-08-20] MEDS ORDERED: Insulin GLARGINE(*) 1 UNITS UNIT SUBCUT SCH (10:00)
[2018-08-20] MEDS ORDERED: Gadoteridol* (CONTRAST) 279.3 MG/ML 10 ML IV ONE (10:32)
[2018-08-20] MEDS: Metoprolol Succinate XL TAB* 50 MG PO SCH (11:56)
[2018-08-20] MEDS: Lisinopril TAB* 5 MG PO SCH (11:56)
[2018-08-20] MEDS: Magnesium Sulfate CRYSTAL* 454 GM BOX TOPICAL SCH (13:47)
--- NOTE | 2018-08-20 14:24 | PN ---
Progress Note - Progress Note Date of Service: 08/20/18 SOAP: Subjective: []Doing well. He is oriented and with normal behavior. No pain, no SOB, moving bowls. Wants to walk. Case discussed with NSG, no complications and had gross total resection of frontal lesion. Acetaminophen (Tylenol Tab*) 650 mg PO Q4H PRN PRN Reason: FEVER/PAIN Atorvastatin Calcium (Lipitor*) 40 mg PO QAM COUNTS INCLUDE 234 BEDS AT THE [facility] Last Admin: 08/20/18 08:23 Dose: 40 mg Dexamethasone Sodium Phosphate (Decadron Iv*) 4 mg IV SLOW PU Q6H COUNTS INCLUDE 234 BEDS AT THE [facility] Last Admin: 08/20/18 13:47 Dose: 4 mg Dextrose (D50w Syringe 50 Ml*) 12.5 gm IV PUSH .FOR FS < 60 - SS PRN PRN Reason: FS < 60 Famotidine (Pepcid Iv*) 20 mg IV DAILY COUNTS INCLUDE 234 BEDS AT THE [facility] Last Admin: 08/20/18 08:20 Dose: 20 mg Hydralazine HCl (Apresoline Iv*) 10 mg IV SLOW PU Q2H PRN PRN Reason: SYSTOLIC BP GREATER THAN: Levetiracetam (Keppra Iv Premix*) 500 mg in 100 mls @ 400 mls/hr IV Q12H COUNTS INCLUDE 234 BEDS AT THE [facility] Last Admin: 08/20/18 08:20 Dose: 400 mls/hr Insulin Glargine (Lantus(*)) 20 units SUBCUT Q12H COUNTS INCLUDE 234 BEDS AT THE [facility] Insulin Human Lispro (Humalog*) 0 units SUBCUT FS Q4 ICU COUNTS INCLUDE 234 BEDS AT THE [facility]; Protocol Last Admin: 08/20/18 11:57 Dose: 9 unit Lisinopril (Prinivil Tab*) 2.5 mg PO DAILY COUNTS INCLUDE 234 BEDS AT THE [facility] Last Admin: 08/20/18 11:56 Dose: 2.5 mg Magnesium Sulfate (Epsom Salt*) 1 applic TOPICAL DAILY COUNTS INCLUDE 234 BEDS AT THE [facility] Last Admin: 08/20/18 13:47 Dose: 1 applic Metoprolol Succinate (Toprol Xl Tab*) 50 mg PO DAILY COUNTS INCLUDE 234 BEDS AT THE [facility] Last Admin: 08/20/18 11:56 Dose: 50 mg Morphine Sulfate (Morphine Inj (Syringe))*) 1 mg IV Q2H PRN PRN Reason: PAIN Ondansetron HCl (Zofran Inj*) 4 mg IV Q6H PRN PRN Reason: NAUSEA Polyethylene Glycol/Electrolytes (Miralax*) 17 gm PO DAILY PRN PRN Reason: CONSTIPATION Senna (Senokot Tab*) 1 tab PO BEDTIME PRN PRN Reason: CONSTIPATION Objective: [] Vital Signs Temp Pulse Resp BP Pulse Ox 98.3 F 59 20 113/68 97 08/20/18 12:57 08/20/18 12:57 08/20/18 12:57 08/20/18 12:57 08/20/18 12:57 HEENT: OM moist, no lesions. No thrush healing incision, drain on L side Neuro CN 2-12 intact and responsive to questions. full exam differed. grossly non focal. CTA RRR S1S2 +BS NT ND, no HSM skin - no change in disease since last week, progression over past month Ext R toe slow growth in disease, melanoma covering toe. MRI brain - reviewed, total resection of large frontal lesion. There is growth over 1 week of residual disease. L parietal lesion 18 mm x 23 mm to 21 mm x23 mm , L frontal 23 x 21 mm to 30 x 23 mm, R parietal lesion 5 mm to 9 Assessment: []63 year old metastatic melanoma, brief response to Ipi/Nivo then stopped for colitis and on steroid taper. 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 Now POD 3 largest lesion. Prognosis discussed with at length. Best case scenario will be control of SHIPPING AND RECEIVING ASSISTANT disease and then re-starting immunotherpy. I estimate the likely huynh of meaningful disease control of 1/3, with jackie risk of further progression of SHIPPING AND RECEIVING ASSISTANT disease and in next 4 weeks. Next step in care is gamma kife to remaining SHIPPING AND RECEIVING ASSISTANT disease and immunotherapy. If he needs prolonged steroid taper will start TMZ as outpatient to attempt disease control. Plan: []1. Post Operative Care. - Drain out tomorrow, possible discharge in 1-2 days. 2. DM. Will go to diabetic diet. Dex will increase sugars. - Lantus and intermediate dose ISS 3. Steroids. Change Dex to 4 mg tid a nd taper further after gamma knife 4. Gamma knife. Ok to proceed on POD 10, referral to [facility] today. 5. Cutaneous disease. Continue to manage toe lesion. 6. HTN. PRN hydralazine in hospital, Ramapril 10 mg on discharge
[2018-08-20 14:36] LABS: ABS Lymphocytes 0.9 10^3/ul (1.0-4.8); ABS Monocytes 0.6 10^3/ul (0-0.8); ABS Neutrophils 13.7 10^3/ul (1.5-7.7); Hematocrit 33 % (42-52); Mean Corpuscular HGB Conc 34 g/dL (31-36); Mean Corpuscular Hemoglobin 31 pg (27-31); Mean Corpuscular Volume 90 fL (80-94); Mean Platelet Volume 6.9 fL (7.4-10.4); Platelet Count 256 10^3/uL (150-450); Red Blood Count 3.61 10^6 /uL (4.18-5.48); Red Cell Distribution Width 18 % (10-15); White Blood Count 15.3 10^3/uL (3.5-10.8)
[2018-08-20 14:54] LABS: BUN/Creatinine Ratio 30.6 (8-20); Calcium 8.4 mg/dL (8.6-10.3); EGFR African American 110.2 (>60); Magnesium 1.8 mg/dL (1.9-2.7)
[2018-08-20] MEDS: Insulin GLARGINE(*) 1 UNITS UNIT SUBCUT SCH (20:45)
[2018-08-21] MEDS: Insulin LISPRO* 1 UNITS UNIT SUBCUT SCH ×7 (01:00→23:50)
[2018-08-21] MEDS: Dexamethasone IV* 4 MG/ML 1 ML (4 MG) IV SLOW PU SCH ×3 (06:05→23:50)
[2018-08-21] MEDS: levETIRAcetam 500 MG IVPREMIX* 500 MG/100 ML BAG IV SCH ×2 (08:25→21:13)
[2018-08-21] MEDS: Atorvastatin* 40 MG TAB PO SCH (08:25)
[2018-08-21] MEDS: Metoprolol Succinate XL TAB* 50 MG PO SCH (08:26)
[2018-08-21] MEDS: Famotidine IV* 10 MG/ML 2 ML (20 mg) IV SCH (08:26)
[2018-08-21] MEDS: Insulin GLARGINE(*) 1 UNITS UNIT SUBCUT SCH ×2 (08:26→20:08)
[2018-08-21] MEDS: Lisinopril TAB* 5 MG PO SCH (08:26)
[2018-08-21] MEDS: Magnesium Sulfate CRYSTAL* 454 GM BOX TOPICAL SCH (14:50)
--- NOTE | 2018-08-21 15:02 | PN ---
Progress Note - Progress Note Date of Service: 08/21/18 SOAP: Subjective: 63 y/o male post resection of metastatic lesion of right frontal lobe POD # 4 patient has continued to improve. There has not been any acute changes over night. He denies headache, nausea or vomiting. Patient has been able tolerate oral intake and has walked with PT/OT without issue. He has remained stable throughout his hospital stay. Objective: Vital Signs - 12 hr Temp Pulse Resp BP Pulse Ox 08/21/18 09:42 98.6 F 59 19 106/72 95 08/21/18 08:00 18 18 03:47 97.6 F 61 15 105/62 96 General:Patient in bed sitting up NAD, speech is clear Neruo: GCS 15, A&O x 2 CN II - XII grossly intact, pupil size symmetric, EOM's intact constrict to light bilateral, negative Romberg, Motor strength 5/5 in all extremities. Derm: No swelling around incision wound C/D/I Assessment: 63 y/o male post resection right frontal lobe metastatic lesion POD # 4, patient is neurologically intact is recovering appropriately after surgery. Patient stable from neurosurgery standpoint will consider discharge. Plan: 1) Consult with medicine for possible discharge planning.
[2018-08-22] MEDS: Insulin LISPRO* 1 UNITS UNIT SUBCUT SCH ×5 (04:08→20:58)
[2018-08-22] MEDS: levETIRAcetam 500 MG IVPREMIX* 500 MG/100 ML BAG IV SCH ×2 (09:04→20:58)
[2018-08-22] MEDS: Famotidine IV* 10 MG/ML 2 ML (20 mg) IV SCH (09:11)
[2018-08-22] MEDS: Dexamethasone IV* 4 MG/ML 1 ML (4 MG) IV SLOW PU SCH ×3 (09:11→23:14)
[2018-08-22] MEDS: Insulin GLARGINE(*) 1 UNITS UNIT SUBCUT SCH ×2 (09:11→20:58)
[2018-08-22] MEDS: Atorvastatin* 40 MG TAB PO SCH (09:12)
[2018-08-22] MEDS: Lisinopril TAB* 5 MG PO SCH (09:12)
[2018-08-22] MEDS: Metoprolol Succinate XL TAB* 50 MG PO SCH (09:12)
--- NOTE | 2018-08-22 11:20 | PN ---
Progress Note - Progress Note Date of Service: 08/22/18 SOAP: Subjective: [Hao reports he is feeling relatively well today. His reports he was a little confused yesterday. He is getting up with PT and using a walker. His is anxious about him coming home.] Objective: [ Laboratory Results - last 24 hr 08/21/18 08/21/18 08/21/18 11:18 17:08 17:40 POC Glucose (mg/dL) 284 H 442 H* Glucose Meter Confirm 395 H 08/21/18 08/21/18 08/22/18 19:59 23:32 04:02 POC Glucose (mg/dL) 353 H 190 H 162 H Glucose Meter Confirm 08/22/18 08:03 POC Glucose (mg/dL) 123 H Glucose Meter Confirm Acetaminophen (Tylenol Tab*) 650 mg PO Q4H PRN PRN Reason: FEVER/PAIN Atorvastatin Calcium (Lipitor*) 40 mg PO QAM [facility] Last Admin: 08/22/18 09:12 Dose: 40 mg Dexamethasone Sodium Phosphate (Decadron Iv*) 4 mg IV SLOW PU Q8H [facility] Last Admin: 08/22/18 09:11 Dose: 4 mg Dextrose (D50w Syringe 50 Ml*) 12.5 gm IV PUSH .FOR FS < 60 - SS PRN PRN Reason: FS < 60 Famotidine (Pepcid Iv*) 20 mg IV DAILY [facility] Last Admin: 08/22/18 09:11 Dose: 20 mg Hydralazine HCl (Apresoline Iv*) 10 mg IV SLOW PU Q2H PRN PRN Reason: SYSTOLIC BP GREATER THAN: Levetiracetam (Keppra Iv Premix*) 500 mg in 100 mls @ 400 mls/hr IV Q12H [facility] Last Admin: 08/22/18 09:04 Dose: 400 mls/hr Insulin Glargine (Lantus(*)) 20 units SUBCUT Q12H [facility] Last Admin: 08/22/18 09:11 Dose: 20 units Insulin Human Lispro (Humalog*) 0 units SUBCUT ACHS [facility]; Protocol Lisinopril (Prinivil Tab*) 2.5 mg PO DAILY [facility] Last Admin: 08/22/18 09:12 Dose: 2.5 mg Magnesium Sulfate (Epsom Salt*) 1 applic TOPICAL DAILY [facility] Last Admin: 08/21/18 14:50 Dose: 1 applic Metoprolol Succinate (Toprol Xl Tab*) 50 mg PO DAILY [facility] Last Admin: 08/22/18 09:12 Dose: 50 mg Morphine Sulfate (Morphine Inj (Syringe))*) 1 mg IV Q2H PRN PRN Reason: PAIN Ondansetron HCl (Zofran Inj*) 4 mg IV Q6H PRN PRN Reason: NAUSEA Polyethylene Glycol/Electrolytes (Miralax*) 17 gm PO DAILY PRN PRN Reason: CONSTIPATION Senna (Senokot Tab*) 1 tab PO BEDTIME PRN PRN Reason: CONSTIPATION Vital Signs: Temp Pulse Resp BP Pulse Ox 97.7 F 64 19 105/70 96 08/22/18 08:00 08/22/18 08:00 08/22/18 08:00 08/22/18 08:00 08/22/18 08:00 Exam: Gen: 63 yo male who is resting comfortably and in NAD HEENT: frontal craniotomy scar with sutures in place, no erythema or drainage, MMM CV: RRR no m/r/g Resp: CTA, no w/c/r Abd: soft, nonTTP Ext: no edema Neuro: grossly intact Skin: R foot with dry and clean dressing in place, nodular skin lesions over R leg ] [Assessment: []63 year old metastatic melanoma, brief response to Ipi/Nivo then stopped for colitis and on steroid taper. 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 Now POD 5 largest lesion. Plan: []1. s/p craniotomy - management per neurosurgery - drain is out and appears to recovering well 2. DM. - cont basal/bolus insulin coverage 3. Steroids. - cont dex 4mg tid, taper to bid dosing at dc 5. Metastatic melanoma - plan gammaknife to additional brain lesions POD #10 - referral to [facility] pending - anticipate resuming immunotherapy following gammaknife - cont warm water soaks and dry dressings to toe lesion 6. HTN. - PRN hydralazine in hospital, Ramapril 10 mg on discharge Dispo: anticipate dc home tomorrow, would benefit from home PT/OT services
[2018-08-22] MEDS: Magnesium Sulfate CRYSTAL* 454 GM BOX TOPICAL SCH (15:14)
--- NOTE | 2018-08-22 18:58 | PN ---
Progress Note - Progress Note Date of Service: 08/22/18 SOAP: Subjective: 63 y/o male post resection of metastatic lesion of right frontal lobe POD # 5 patient has continued to improve. There has not been any acute changes over night. He denies headache, nausea or vomiting. Patient has been able tolerate oral intake and has walked with PT/OT without issue. He continues to be alert, no acute changes overnight. Objective: Vital Signs - 12 hr Temp Pulse Resp BP Pulse Ox 08/22/18 16:00 97.9 F 74 16 103/59 98 08/22/18 12:00 97.4 F 64 21 107/63 97 08/22/18 08:00 97.7 F 64 19 105/70 96 General:Patient in bed sitting up NAD, speech is clear Neruo: GCS 15, A&O x 2 CN II - XII grossly intact, pupil size symmetric, EOM's intact constrict to light bilateral, negative Romberg, Motor strength 5/5 in all extremities. Derm: No swelling around incision wound C/D/I Assessment: 63 y/o male post resection right frontal lobe metastatic lesion POD # 5 patient doing well and is stable. Plan: Patient is clear for discharge from neurosurgery stand point will continue to follow until discharged from oncology.
[2018-08-23] MEDS: levETIRAcetam 500 MG IVPREMIX* 500 MG/100 ML BAG IV SCH (07:49)
[2018-08-23] MEDS: Lisinopril TAB* 5 MG PO SCH (07:50)
[2018-08-23] MEDS: Metoprolol Succinate XL TAB* 50 MG PO SCH (07:50)
[2018-08-23] MEDS: Atorvastatin* 40 MG TAB PO SCH (07:50)
[2018-08-23] MEDS: Magnesium Sulfate CRYSTAL* 454 GM BOX TOPICAL SCH (07:50)
[2018-08-23] MEDS: Dexamethasone IV* 4 MG/ML 1 ML (4 MG) IV SLOW PU SCH (07:50)
[2018-08-23] MEDS: Insulin GLARGINE(*) 1 UNITS UNIT SUBCUT SCH (07:50)
[2018-08-23] MEDS: Famotidine IV* 10 MG/ML 2 ML (20 mg) IV SCH (07:50)
[2018-08-23] MEDS: Insulin LISPRO* 1 UNITS UNIT SUBCUT SCH (07:56)
--- NOTE | 2018-08-23 08:42 | PN ---
Progress Note - Progress Note Date of Service: 08/23/18 SOAP: Subjective: 63 y/o male post resection of metastatic lesion of right frontal lobe POD # 6 patient has continued to improve. There has not been any acute changes over night. He denies headache, nausea or vomiting. Patient has been able tolerate oral intake and has walked with PT/OT without issue. He continues to be alert, no acute changes overnight. Patient became agitated and took off all his dressings overnight. This morning I have spoke with him about keeping dressings intact, and he was agreeable. Objective: Vital Signs - 12 hr Temp Pulse Resp BP Pulse Ox 08/23/18 08:00 18 08/23/18 04:00 98.7 F 69 16 110/71 99 08/23/18 00:16 97.6 F 73 20 110/73 97 General:Patient in bed sitting up NAD, speech is clear Neruo: GCS 15, A&O x 2 CN II - XII grossly intact, pupil size symmetric, EOM's intact constrict to light bilateral, negative Romberg, Motor strength 5/5 in all extremities. Derm: No swelling around incision wound C/D/I Assessment: 63 y/o male post resection of metastatic lesion of right frontal lobe POD # 6, patient has been stable, but occasionally becomes agitated and becomes noncompliant takes off bandages off. From neurosurgery standpoint patient is ready for discharge. Plan: Continue follow patient Continue to work with PT/OT Discharge planning
[2018-08-23 08:59] VITALS: BP 105/69
--- NOTE | 2018-08-24 02:26 | DS ---
CC: Dr. Castro; Dr. Marroquin * DISCHARGE SUMMARY: DATE OF ADMISSION: 08/12/18 DATE OF DISCHARGE: 08/23/18 PRIMARY CARE PROVIDER: Dr. Castro. CONSULTING NEUROSURGEON: Dr. Marroquin. PRIMARY ONCOLOGIST AND ATTENDING PHYSICIAN: Hugo Rangel MD * (DICTATED BY MARIAM BRAND) DISCHARGING PROVIDER: MARIAM Brand PRIMARY DISCHARGE DIAGNOSES: 1. Metastatic melanoma with new brain metastasis, status post craniotomy with gross resection of large frontal mass. 2. Insulin-dependent diabetes with hyperglycemia secondary to steroid use. 3. Hypertension. 4. History of immune-mediated colitis. DISCHARGE MEDICATIONS: 1. Atorvastatin 40 mg p.o. daily. 2. Vitamin D3 2000 units p.o. daily. 3. Gabapentin 100 mg p.o. three times daily. 4. Lantus 55 units subcu daily. 5. Metoprolol succinate 50 mg p.o. daily. 6. Multivitamin 1 tablet p.o. daily. 7. Ramipril 10 mg p.o. daily. 8. Dexamethasone 4 mg p.o. twice daily. 9. Keppra 500 mg p.o. twice daily 10 to 7 additional days. 10. Imodium 2 mg with each loose bowel movement as needed for diarrhea. HOSPITAL IMAGIN. Chest x-ray, 08/12/18, shows no acute disease. 2. CT brain, 08/12/18, shows multiple new masses containing hemorrhage suspicious for hemorrhagic metastasis causing significant mass effect. 3. MRI of the brain, 08/12/18, shows multiple enhancing lesions in the brain, largest in the right frontal lobe measuring 5.2 cm and exerting mass effect on anterior horn of the right ventricle and causes 3 to 4 cm of right to left midline shift of the falx. 4. CT chest, abdomen and pelvis shows precarinal lymph node, appears to be slightly larger than on prior exam with low density lesions in the liver, especially medial segment of the left lobe of the liver and areas of hyperdensity are noticed in the posterior right lobe of the liver. These were not clearly identified previously and likely represent new hepatic metastasis. Right inguinal region and external iliac region demonstrates enlarging lymph nodes when compared to prior exam. 5. MRI of the brain, 08/17/18, shows multiple re-enhancing lesion, which is increased slightly in size from the prior study most consistent with metastatic disease. Significant mass effect with compression of the frontal horns in the lateral ventricles and subfalcine herniation as noted. 6. CT brain, 08/18/18, shows moderate pneumocephalus, multiple hemorrhagic lesions are seen in the supratentorial brain, largest one in the left frontal lobe, which appears to be increased in size from prior study, other lesions are stable in appearance. Previously seen right inferior frontal hemorrhagic lesion that demonstrates postsurgical cavity with areas of hemorrhage and low attenuation. 7. MRI brain 08/20/18 demonstrates interval resection of a mass in the right frontal lobe, associated blood product and enhancement along the margins of the resection cavity consistent with residual hemorrhage or tumor. There has been interval progression of the left frontal lesion, which may reflect progression of the underlying hemorrhagic component with a small lesion of the right frontal begum radiata also concerning for hemorrhagic metastasis. HOSPITAL COURSE: This is a 63-year-old gentleman with melanoma initially excised from the right toe, found to be node positive and started on adjuvant immunotherapy, who subsequently developed in-transit metastasis and was subsequently switched from pembrolizumab to Nivolumab with ipilimumab, which is complicated by 2 bouts of relatively severe immune-mediated colitis. The patient has been tapered from steroids and subsequently presented to the emergency department with complaints of lethargy and his noted some mild left-sided facial droop. Initial labs demonstrated [id number] leukocytosis. Chemistries were notable for mild acidosis and elevated total bilirubin to 2.6. CT scan of the brain was obtained, which demonstrated multiple enhancing masses with a hemorrhagic component consistent with new brain metastasis. The patient was subsequently admitted to ICU and initiated on Keppra, dexamethasone therapy. The patient was seen by neurosurgeon, Dr. Marroquin, and due to the size of the large frontal lesion with associated mass effect and midline shift, decision was made for craniotomy with tumor resection. The patient went to surgery 08/17/18. Large frontal lesion was successfully resected and patient recovered in ICU. There were no significant postoperative complications apart from some postoperative hypertension which was managed with p.r.n. hydralazine and hyperglycemia secondary to steroid use, which was managed with basal bolus insulin regimen. The patient worked with Physical Therapy and Occupational Therapy during his hospital stay. At the time of discharge, the patient was able to ambulate independently and had no focal deficits. He was lethargic and had periods of intermittent mild confusion, but otherwise was doing relatively well at the time of discharge. DISPOSITION AND FOLLOWUP PLAN: The patient is being discharged to home where he lives with his in stable condition. Plan includes Gamma Knife to other brain metastasis at [facility] approximately 10 days post-craniotomy. Arrangements for this being made by nurse navigating team with the oncology group. The patient will be seen in followup with Khushbu Bennett, nurse practitioner, on Monday08/28/18 in the oncology clinic. The patient will be continued on Keppra for additional 7 days per recommendation of Neurosurgery and will be seen for 7-day followup by Dr. Marroquin on the Monday the 08/29. We will continue dexamethasone at 4 mg twice daily until after Gamma Knife procedure, at which point, we will start to taper. We will review further treatment planning with Dr. Rangel following discharge. MARIAM BRAND [id number]/CPS #: [id number] [id number]
== END 2018-08-23 12:46 | disposition home health service (06) | DRG 21 ==
LOC: ED 12:19 → ICU 16:08 → MEDTELE 08-15 14:29 → ICU 08-17 17:01 → SSU 08-19 17:49 → MEDTELE 08-19 20:00
PROVIDERS: ADMIT Internal Medicine Hematology & Oncology; ATTEND Internal Medicine Hematology & Oncology
PROC: 00B70ZZ Excision of Cerebral Hemisphere, Open Approach (ICD-10-PCS; principal; 2018-08-16)
DX: C79.31 Secondary malignant neoplasm of brain (principal); G93.6 Cerebral edema; K52.1 Toxic gastroenteritis and colitis; C78.7 Secondary malignant neoplasm of liver and intrahepatic bile duct; E87.2 Acidosis; C43.59 Malignant melanoma of other part of trunk; E11.40 Type 2 diabetes mellitus with diabetic neuropathy, unspecified; M19.042 Primary osteoarthritis, left hand; E78.5 Hyperlipidemia, unspecified; T45.1X5A Adverse effect of antineoplastic and immunosuppressive drugs, initial encounter; M19.041 Primary osteoarthritis, right hand; E11.65 Type 2 diabetes mellitus with hyperglycemia; G93.89 Other specified disorders of brain; T38.0X5A Adverse effect of glucocorticoids and synthetic analogues, initial encounter; Y92.239 Unspecified place in hospital as the place of occurrence of the external cause; D64.9 Anemia, unspecified; E87.6 Hypokalemia; D72.828 Other elevated white blood cell count; Z89.411 Acquired absence of right great toe; Z88.1 Allergy status to other antibiotic agents; Z98.1 Arthrodesis status; Z80.0 Family history of malignant neoplasm of digestive organs; Z72.89 Other problems related to lifestyle; Z79.4 Long term (current) use of insulin
CPT/HCPCS: 36415; 70450; 70552; 70553; 71045; 71260; 74177; 80048; 80053; 80076; 81003; 82803; 82947; 83605; 83735; 84484; 85025; 85027; 85060; 85384; 85610; 85652; 85730; 86140; 86850; 86900; 86901; 86922; 87040; 87641; 88307; 88342; 93005; 99232; 99233; 99239; 99285; A9270-GY; A9579; C1713; C1776; G8978-GP-CI; G8979-GP-CI; G8980-GP-CI; J0360; J0744; J1100; J1170; J1953; J2001; J2150; J2250; J2405; J2704; J3010; J3370; J3475; J3480; J3490; Q9967

== ENCOUNTER 2018-08-24 09:33 | Inpatient (IN) | payer OTHER ==
--- NOTE | 2018-08-24 09:51 | ED ---
Neurological HPI - HPI Summary HPI Summary: LEVEL 5 CAVEAT. The patient is a 63 y/o M arriving by ambulance to [facility] with a chief complaint of unresponsiveness starting yesterday afternoon with worsening this morning. Per EMS, the patient had been unresponsive with O2 sat% in the low 80s%, so he was placed on 10L O2. Initial BP was 49/33, with improvement en route. He recently had brain surgery for meningioma removal one week ago and discharged from [facility] yesterday, which is when his symptoms began. In the ED, he denies CP, headache, and myalgia. Hx DM, HTN, sepsis. Nonsmoker, occasional EtOH , no substance use. - History of Current Complaint Stated Complaint: UNRESPONSIVE PER EMS Hx Obtained From: Patient - able to answer some questions but not completely resposinve, Family/Erp Programmer - , EMS Hx From Patient Unobtainable Due To: Other - patient is unable to answer most questions, LEVEL 5 CAVEAT Onset/Duration: Started hours ago - yesterday afternoon, Still Present, Worse Since - this morning Timing: Constant Onset Severity: Moderate Current Severity: Moderate Pain Intensity: 0 Pain Scale Used: 0-10 Numeric Character: Responsiveness - unresponsive upon EMS arrival, more responsive in ED Alleviating: Other - O2 in ambulance increased saturation Associated Signs and Symptoms: Positive: Decreased Level of Consciousness. Negative: Headache, Chest Pain - Additional Pertinent History Primary Care Physician: MARIANA - Allergy/Home Medications Allergies/Adverse Reactions: Allergies Allergy/AdvReac Type Severity Reaction Status Date / Time Penicillins Allergy Unknown Verified 08/12/18 12:45 Reaction Details PMH/Surg Hx/FS Hx/Imm Hx Endocrine/Hematology History: Reports: Hx Diabetes Cardiovascular History: Reports: Hx Hypertension - ON MEDS Denies: Hx Hypercholesterolemia, Hx Pacemaker/ICD Respiratory History: Denies: Hx Asthma History: Denies: Hx Dialysis, Hx Renal Disease Musculoskeletal History: Reports: Hx Arthritis - IN BOTH HANDS Sensory History: Reports: Hx Contacts or Glasses - Reading glasses Denies: Hx Hearing Aid Opthamlomology History: Reports: Hx Contacts or Glasses - Reading glasses Neurological History: Reports: Other Neuro Impairments/Disorders - meningioma with surgical interventions Psychiatric History: Denies: Hx Panic Disorder - Cancer History Cancer Type, Location and Year: MELANOMA AND SEVERAL POSITIVE LYMPH NODES IN GROIN. Meningioma, removed 2019 at [facility] Hx Chemotherapy: Yes - KYTRUDIA Hx Radiation Therapy: No - Surgical History Surgery Procedure, Year, and Place: FUSION C-SPINE X 2 [facility]. AMPUTATION RT GRT TOE AND LYMPH NODES FROM [place] 01/2018 Hx Anesthesia Reactions: No - Family History Known Family History: Positive: Other - Liver cancer (mother), pancreatic cancer (brother) - Social History Alcohol Use: Occasionally Alcohol Amount: 2 BEERS A MONTH Hx Substance Use: No Substance Use Type: Reports: None Hx Tobacco Use: No Smoking Status (MU): Never Smoked Tobacco Have You Smoked in the Last Year: No Review of Systems Negative: Chest Pain Negative: Myalgia Neurological: Other - unresponsiveness All Other Systems Reviewed And Are Negative: No - Comments Additional Review of Systems Comments: LEVEL 5 CAVEAT Physical Exam - Summary Physical Exam Summary: VITAL SIGNS: Reviewed. GENERAL: Patient is a well-developed and nourished male who is lying comfortable in the stretcher. Patient is not in any acute respiratory distress. HEAD AND FACE: Surgical scar in scalp which is clean and intact. No signs of trauma. No ecchymosis, hematomas or skull depressions. No sinus tenderness. EYES: PERRLA, EOMI x 2, No injected conjunctiva, no nystagmus. No photophobia. EARS: Hearing grossly intact. Ear canals and tympanic membranes are within normal limits. MOUTH: Oropharynx within normal limits. NECK: Supple, trachea is midline, no adenopathy, no JVD, no carotid bruit, no c- spine tenderness, neck with full ROM. No meningeal signs, no Kernig's or brudzinskis signs. CHEST: Symmetric, no tenderness at palpation LUNGS: Decreased breath sounds. No wheezing or crackles. CVS: Regular rate and rhythm, S1 and S2 present, no murmurs or gallops appreciated. ABDOMEN: Soft, non-tender. No signs of distention. No rebound no guarding, and no masses palpated. Bowel sounds are normal. EXTREMITIES: FROM in all major joints, no edema, no cyanosis or clubbing. Cauliflower growth in the right great toe. NEURO: Obtunded. See GCS. SKIN: Dry and warm. GCS: 12 - Eye Response: to Speech (3), Motor Response: Purposeful (5), Verbal Response: Confused (4). LEVEL 5 CAVEAT Triage Information Reviewed: Yes Vital Signs Reviewed: Yes Completion Of Physical Exam Limited Due To: Level 5 - [place] Coma Scale Best Eye Response: 3 - To Speech Best Motor Response: 5 - Purposeful Movement Best Verbal Response: 4 - Confused Coma Scale Total: 12 Procedures - Procedure Summary Procedure Summary: Mid-line - LUE: A midline was placed in the patient's left arm without any complications. Central Venous Catheter Insertion - Right Internal Jugular: Indication: Hypotension not responding to IVF bolus and 30 cc/kg [place] Protocol: a timeout was performed and the correct patient and site were verified Consent: Obtained The patient was placed in Trendelenburg position. Patient and all elements of maximal sterile barrier technique (MSBT) were used. Anesthesia was obtained with local infiltration of 3 ml 1% lidocaine. Hand hygiene was performed prior to procedure. Chlorhexidine used to prep the skin and dried for 2 minutes prior to skin puncture. Traffic was limited during the procedure. Full barrier precautions utilized. Dynamic ultrasound guidance used and the right internal jugular vein was cannulated. A 7 burundian triple lumen catheter was placed using the Seldinger technique. All lines flushed and leeanna nonpulsatile dark venous blood appropriately. The line was secured with sutures. A biopatch and dressing was placed over the site. The patient tolerated the procedure well. A post-line CXR was reviewed demonstrating the tip of the catheter in the SVC. Post-Procedure Diagnosis: same as indication Complications: none Estimated Blood Loss: minimal Diagnostics - Laboratory Result Diagrams: 08/24/18 10:07 08/24/18 10:07 Lab Statement: Any lab studies that have been ordered have been reviewed, and results considered in the medical decision making process. - Radiology CXR Radiology Interpretation Completed By: Radiologist Summary of Radiographic Findings: No active cardiopulmonary disease. ED physician has reviewed this radiology report. - CT Brain CT CT Interpretation Completed By: Radiologist Summary of CT Findings: 1. Multiple hemorrhagic intra-axial metastatic lesions without significant interval change compared with the recent exam of August 18, 2018. 2. No significant change in size of the gas and fluid-filled RIGHT frontal pole tumor resection cavity with small volume of dependent hyperdense hemorrhage compared with the August 18, 2018 exam. 3. No new intra or extra-axial hemorrhage evident. 4. There is mild RIGHT greater than LEFT sulcal effacement compared with the August 12, 2018 exam. 2 mm rightward shift at the level of the septum pellucidum without significant change. 5. No new region of harvey matter white matter obscuration or new mass effect evident. ED physician has reviewed this radiology report. - EKG 0949 Cardiac Rate: NL - 99 BPM EKG Rhythm: Sinus Rhythm EKG Comparison: No Significant Change - Similar to EKG taken on 08/12/2018. Summary of EKG Findings: Nml axis. No ST elevations. Re-Evaluation - Re-Evaluation First Eval Re-Evaluation Time: 09:55 Comment: I discussed the patient with his partner, Josr Galeana. She states that they would like to change his status to comfort care. They do not want a central line placed, but they would like to continue IV fluids and to just keep him comfortable. She also reports that the patient's symptoms started yesterday afternoon after being discharged from [facility]. Second Eval Re-Evaluation Time: 11:20 Comment: I placed a midline in the patient's left arm without any complications. Third Eval Re-Evaluation Time: 12:15 Comment: Robert Whalen NP, requests a central line placement. The patient's partner agrees at this time. Central line was placed (view procedure note). Course/Dx - Course Course Of Treatment: PROCEDURES. Mid-line - LUE: A midline was placed in the patient's left arm without any complications. Central Venous Catheter Insertion - Right Internal Jugular: Indication: Hypotension not responding to IVF bolus and 30 cc/kg. [place] Protocol: a timeout was performed and the correct patient and site were verified. Consent: Obtained. The patient was placed in Trendelenburg position. Patient and all elements of maximal sterile barrier technique (MSBT) were used. Anesthesia was obtained with local infiltration of 3 ml 1% lidocaine. Hand hygiene was performed prior to procedure. Chlorhexidine used to prep the skin and dried for 2 minutes prior to skin puncture. Traffic was limited during the procedure. Full barrier precautions utilized. Dynamic ultrasound guidance used and the right internal jugular vein was cannulated. A 7 burundian triple lumen catheter was placed using the Seldinger technique. All lines flushed and leeanna nonpulsatile dark venous blood appropriately. The line was secured with sutures. A biopatch and dressing was placed over the site. The patient tolerated the procedure well. A post-line CXR was reviewed demonstrating the tip of the catheter in the SVC. . Post- Procedure Diagnosis: same as indication. Complications: none. Estimated Blood Loss: minimal Assessment/Plan: LEVEL 5 CAVEAT. The patient is a 63 y/o M arriving by ambulance to [facility] with a chief complaint of unresponsiveness starting yesterday afternoon with worsening this morning. Per EMS, the patient had been unresponsive with O2 sat% in the low 80s%, so he was placed on 10L O2. Initial BP was 49/33, with improvement en route. He recently had brain surgery for meningioma removal one week ago and discharged from [facility] yesterday, which is when his symptoms began. In the ED, he denies CP, headache, and myalgia. Hx DM, HTN, sepsis. Nonsmoker, occasional EtOH, no substance use. Past medical history significant for: new brain metastases status post craniotomy with a gross resection of a large frontal mass, insulin-dependent diabetes, hypertension, and history of ulcerative colitis. Patient had a craniotomy with Dr. Marroquin on 08/12/2018. Patient was discharged home yesterday and now he is returning with altered mental status and hypotension. 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 If the blood pressure does not respond, the patient will be started on Levophed. The patient was started on Vancomycin and Cefepime. Blood cultures were ordered. Blood work and a head CT are ordered. EKG shows a normal sinus rhythm at [address] elevations. The blood pressure continued to be low. At this point, I discussed my findings and prognosis with the patients , and she reports that she doesnt want to have any intubations, resuscitations, or central lines. She accepts the IV fluids and antibiotics for a short time, and if it doesnt work, the patient will be changed to comfort care. Head CT IMPRESSION: 1. Multiple hemorrhagic intra-axial metastatic lesions without significant interval change compared with the recent exam of August 18, 2018. 2. No significant change in size of the gas and fluid-filled RIGHT frontal pole tumor resection cavity with small volume of dependent hyperdense hemorrhage compared with the August 18, 2018 exam. 3. No new intra or extra-axial hemorrhage evident. 4. There is mild RIGHT greater than LEFT sulcal effacement compared with the August 12, 2018 exam. 2 mm rightward shift at the level of the septum pellucidum without significant change. 5. No new region of harvey matter white matter obscuration or new mass effect evident. Chest x-ray impression: No active Pulmonary disease. Blood work without any significant abnormality except for WBCs of 40.9, hemoglobin of 12.4 , hematocrit of 37, platelets of 201, sodium of 132, carbon dioxide of 12, anion gap of 19, BUN of 35, creatinine of 2.91, glucose of 119, calcium of 7.8, and magnesium of 1.4, for which the patient was given magnesium IV. Total bili of 1.2, AST is 166, ALT is 223, alkaline phosphatase of 167, CPK of 304, troponin of 0.07, and TSH of 8.29. The antibiotics were started before the blood cultures were drawn since they have a difficult time trying to get blood work from the patient. Therefore, I placed a left arm midline. At this point, I discussed my physical exam and findings with Dr. Reyes who accepted the patient for admission. Ms. Whalen, YINA, and Dr. Reyes came and saw the patient. She requested to get a central line. She had spoken with the patients , and now she agrees to get a central line for this patient. Initially I placed a line in the external jugular. Therefore the central line was placed with no complications. After the central line was placed, I removed the right external jugular access. At this point the patient will be going to the ICU for further workup and management. The patients blood pressure is a slightly better, and the patient was started on Levophed. - Diagnoses Provider Diagnoses: Sepsis, Hypotension, Leukocytosis - Physician Notifications Discussed Care Of Patient With: Romeo Reyes - oncology Time Discussed With Above Provider: 10:25 Instructed by Provider To: Other - I discussed the patient's case with Dr. Reyes. He suggests ordering a Keppra level test due to the patient's BP. He accepts the patient for admission. At 1200 in the ED, Robert Whalen NP, requests central line for the patient. - Critical Care Time Critical Care Time: 75-104 min - 100 minutes CCT Discharge - Sign-Out/Discharge Documenting (check all that apply): Patient Departure - Patient is accepted for admission by Dr. Reyes. Patient Received Moderate/Deep Sedation with Procedure: No - Discharge Plan Condition: Stable Disposition: ADMITTED TO [facility] - Billing Disposition and Condition Condition: STABLE Disposition: Admitted to [facility] - Attestation Statements Document Initiated by Jing: Yes Documenting Scribe: Lea Elizalde Provider For Whom Jing is Documenting (Include Credential): Dr. Luis Antonio Daly MD Scribe Attestation: Lea Maldonado scribed for Dr. Luis Antonio Daly MD on 08/24/18 at 1425. Scribe Documentation Reviewed: Yes Provider Attestation: The documentation as recorded by the Lea arcos accurately reflects the service I personally performed and the decisions made by me, Dr. Luis Antonio Daly MD Status of Scribe Document: Ready
[2018-08-24] MEDS ORDERED: Cefepime(*) 1 GM in NS 0.9% 50 ML* 50 ML IVPB ONE (10:07)
[2018-08-24] MEDS ORDERED: Vancomycin(*) 1,000 MG in NS 0.9% 250 ML* 250 ML IVPB ONE (10:07)
[2018-08-24] MEDS: NS 0.9% 1000 ML** 2,000 ML IV ONE ×2 (10:20→10:21)
[2018-08-24 10:35] LABS: Hematocrit 37 % (42-52); Hemoglobin 12.4 g/dL (14.0-18.0); Mean Corpuscular HGB Conc 33 g/dL (31-36); Mean Corpuscular Hemoglobin 31 pg (27-31); Mean Corpuscular Volume 92 fL (80-94); Mean Platelet Volume 7.9 fL (7.4-10.4); Platelet Count 201 10^3/uL (150-450); Red Blood Count 4.04 10^6 /uL (4.18-5.48); Red Cell Distribution Width 18 % (10-15); White Blood Count 40.9 10^3/uL (3.5-10.8)
[2018-08-24 10:50] LABS: Albumin 2.9 g/dL (3.2-5.2); Calcium 7.8 mg/dL (8.6-10.3); Chloride 101 mmol/L (101-111); Magnesium 1.4 mg/dL (1.9-2.7); Sodium 132 mmol/L (135-145)
[2018-08-24 10:55] LABS: CO2 Carbon Dioxide 12 mmol/L (22-32)
[2018-08-24 10:56] LABS: ALT 223 U/L (7-52); Albumin/Globulin Ratio 1.1 (1-3); Alkaline Phosphatase 167 U/L (34-104); Blood Urea Nitrogen 35 mg/dL (6-24); Creatine Kinase 304 U/L (10-223); EGFR African American 26.6 (>60); Globulin 2.7 g/dL (2-4); Glucose 119 mg/dL (70-100); Total Protein 5.6 g/dL (6.4-8.9)
[2018-08-24 10:58] LABS: Acetaminophen < 15 mcg/mL; Alcohol < 10 mg/dL (<10)
[2018-08-24 10:59] LABS: Anion Gap 19 mmol/L (2-11)
[2018-08-24 11:10] LABS: ABS Lymphocytes 3.5 10^3/ul (1.0-4.8); ABS Monocytes 2.3 10^3/ul (0-0.8); ABS Neutrophils 35.1 10^3/ul (1.5-7.7); Lymphocyte % 8.5 %; Nucleated Red Blood Cells % 0.1; TSH (Thyroid Stimulating Horm) 8.29 mcIU/mL (0.34-5.60)
[2018-08-24] MEDS ORDERED: Hydrocortisone INJ* 100 MG VIAL IV ONE (11:10)
[2018-08-24 11:24] LABS: AST 166 U/L (13-39); Potassium 4.2 mmol/L (3.5-5.0); Troponin I 0.07 ng/mL (<0.04)
[2018-08-24] MEDS ORDERED: Magnesium Sulfate 1 GM IV* 1 GM/100 ML BAG IV ONE (11:54)
[2018-08-24] MEDS ORDERED: Ondansetron INJ* 2 MG/ML VIAL IV PRN (12:05)
[2018-08-24] MEDS ORDERED: Acetaminophen TAB* 325 MG PO PRN (12:05)
[2018-08-24] MEDS ORDERED: Dextrose 50% Syringe 50 ML* 25 GM/50 ML SYRINGE IV PUSH PRN (12:14)
[2018-08-24] MEDS ORDERED: Norepinephrine 16MCG/ML IVPRE* 4,000 MCG/250 ML BAG IV SCH (14:00)
[2018-08-24] MEDS: Insulin LISPRO* 1 UNITS UNIT SUBCUT SCH ×3 (14:00→21:14)
[2018-08-24] MEDS ORDERED: Heparin VIAL(*) 5000 UNITS/ML VIAL (FIVE THOUSAND) SUBCUT SCH (14:00)
[2018-08-24 14:05] LABS: Urine Appearance Clear; Urine Bacteria 2+ (Absent); Urine Bilirubin Negative (Negative); Urine Blood 1+ (Negative); Urine Color Yellow; Urine Glucose 3+(>=500 mg/dL) (Negative); Urine Ketones Negative (Negative); Urine Nitrite Negative (Negative); Urine Protein Negative (Negative); Urine Red Blood Cell Trace(0-2/hpf) (Absent); Urine Specific Gravity 1.012 (1.010-1.030); Urine Urobilinogen Negative (Negative); Urine White Blood Cell Trace(0-5/hpf) (Absent)
[2018-08-24] MEDS: NS 0.9% 1000 ML** 1,000 ML IV SCH ×3 (14:12→16:20)
[2018-08-24 14:21] LABS: Urine Benzodiazepine Screen None Detected (None Detect); Urine Opiates Screen None Detected (None Detect)
[2018-08-24] MEDS: levETIRAcetam 500 MG IVPREMIX* 500 MG/100 ML BAG IV SCH (14:47)
[2018-08-24] MEDS: Dexamethasone IV* 4 MG/ML 1 ML (4 MG) IV SLOW PU SCH ×2 (14:57→21:13)
[2018-08-24] MEDS ORDERED: Insulin GLARGINE(*) 1 UNITS UNIT SUBCUT SCH (17:00)
--- NOTE | 2018-08-24 17:14 | CONSULT ---
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 On EMS arrival, patient was unresponsive, sats 80s, started on 10L o2, BP 49/33. In ER, he was started on sepsis protocol, IV abx, IVF, central line placed and started on levophed infusion. he is currently lethargic but maintain his airway. no distress noted. tmax now 100.4 in ICU. 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, s/p right frontal craniotomy and resection of large lesion 07/2018, DM, HTN PSHx: s/p right frontal craniotomy and resection of large lesion 07/2018; 1990s Cspine fusion; amputation right great toe Family History: liver cancer mother, pancreatic cancer brother Social History: Alcohol-social, Smoking-none, Drug use-none Allergies: Allergies Allergy/AdvReac Type Severity Reaction Status Date / Time Penicillins Allergy Unknown Verified 08/12/18 12:45 Reaction Details Home Medications: Atorvastatin* [Lipitor 10 MG*] 40 mg PO QAM 07/31/13 [History Confirmed 08/24/18 ] Multivitamin [Multivitamins] 1 cap PO QAM 07/31/13 [History Confirmed 08/24/18] Ramipril CAP* [Altace CAP*] 10 mg PO QAM 07/31/13 [History Confirmed 08/24/18] Loperamide CAP* [Imodium CAP*] 2 mg PO .SEE DIRECTIONS PRN cap 06/14/18 [Rx Confirmed 08/24/18] Insulin Glargine,Hum.rec.anlog [Lantus Solostar 5x3 ML PENS] 55 units SUBCUT QAM 07/02/18 [History Confirmed 08/24/18] Cholecalciferol (Vitamin D3) [Vitamin D3] 2,000 unit PO DAILY 08/12/18 [History Confirmed 08/24/18] Gabapentin CAP(*) [Neurontin 100 mg CAP(*)] 100 mg PO TID 08/12/18 [History Confirmed 08/24/18] Metoprolol Succinate XL TAB* [Toprol XL TAB*] 50 mg PO DAILY 08/12/18 [History Confirmed 08/24/18] Dexamethasone TAB* [Decadron TAB*] 4 mg PO BID #60 tab 08/23/18 [Rx Confirmed ] levETIRAcetam [Keppra] 500 mg PO BID #14 tablet 08/23/18 [Rx Confirmed 08/24/18] Tele: NSR Vitals: Vital Signs Temp 100.0 F 08/24/18 15:15 Pulse 90 08/24/18 15:15 Resp 18 08/24/18 15:43 BP 96/67 08/24/18 15:15 Pulse Ox 100 08/24/18 15:15 Intake & Output 08/23/18 08/24/18 08/24/18 18:59 06:59 18:59 Intake Total 3400 Output Total 400 Balance 3000 Weight 84.368 kg Intake: IV Fluids 3300 NS (0.9%) 1000 IVPB 100 NS (0.9%) 100 Output: [place] 400 O2/Vent: RA, rr 23 Infusions: Levophed, NS Current Medications: Acetaminophen (Tylenol Tab*) 650 mg PO Q4H PRN PRN Reason: FEVER/PAIN Dexamethasone Sodium Phosphate (Decadron Iv*) 4 mg IV SLOW PU Q8HR [facility] Last Admin: 08/24/18 14:57 Dose: 4 mg Dextrose (D50w Syringe 50 Ml*) 12.5 gm IV PUSH .FOR FS < 60 - SS PRN PRN Reason: FS < 60 Heparin Sodium (Porcine) (Heparin Vial(*)) 5,000 units SUBCUT Q8HR [facility] Last Admin: 08/24/18 15:00 Dose: 5,000 units Sodium Chloride (Ns 0.9% 1000 Ml) 1,000 mls @ 200 mls/hr IV PER RATE DANIELLA Last Admin: 08/24/18 16:20 Dose: 200 mls/hr Levetiracetam (Keppra Iv Premix*) 500 mg in 100 mls @ 400 mls/hr IV Q12H [facility] Last Admin: 08/24/18 14:47 Dose: 400 mls/hr Cefepime HCl (Maxipime 1 Gm In Dextrose Duplex (*)) 1 gm in 50 mls @ 100 mls/ hr IV Q24H DANIELLA Norepinephrine Bitartrate (Levophed 16 Mcg/Ml Premix Bag*) 4,000 mcg in 250 mls @ 18.75 mls/hr IV .INITIAL RATE DANIELLA; Protocol Last Admin: 08/24/18 14:12 Dose: 18.75 mls/hr Insulin Glargine (Lantus(*)) 40 units SUBCUT Q24H DANIELLA Insulin Human Lispro (Humalog*) 0 units SUBCUT Q4HR DANIELLA; Protocol Last Admin: 08/24/18 14:00 Dose: Not Given Ondansetron HCl (Zofran Inj*) 4 mg IV Q4H PRN PRN Reason: NAUSEA/VOMITING Physical Exam: Constitutional: not awake, spontaneous movements at times, sometimes mummbles back responses, no distress, no diaphoresis Head: normocephalic, atraumatic Eyes: no pallor, no icterus ENT: moist mucous membranes Neck: soft, supple, no jvd, no stridor CVS: tachy, regular, no murmur Resp: bilateral air entry, no rhales, no wheeze, no rhonchi, no acc muscle use Abdomen/GI: soft, nontender, nondistended, BS+ Ext/Msk: warm, pulses+, no edema Skin: intact, warm; Right foot grt toe amputation; noted LE melanoma Neuro: not awake, not alert/oritented, unable to follow commands, some movement with painful stimuli, no distress, pupils reactive Labs: Laboratory Results - last 24 hr 08/24/18 08/24/18 08/24/18 10:07 10:07 11:38 WBC 40.9 H RBC 4.04 L Hgb 12.4 L Hct 37 L MCV 92 MCH 31 MCHC 33 RDW 18 H Plt Count 201 MPV 7.9 Neut % (Auto) 85.7 Lymph % (Auto) 8.5 Sunflower % (Auto) 5.7 Eos % (Auto) 0.0 Baso % (Auto) 0.1 Absolute Neuts (auto) 35.1 H Absolute Lymphs (auto) 3.5 Absolute Monos (auto) 2.3 H Absolute Eos (auto) 0.0 Absolute Basos (auto) 0.0 Absolute Nucleated RBC 0.0 Immature Gran % 1.0 Neutrophils % 84.0 Lymphocytes % 12.0 Monocytes % 3.0 Metamyelocytes % 1.0 Nucleated RBC % 0.1 Normal RBC Morphology Normal ABG pH ABG pCO2 ABG pO2 ABG HCO3 ABG O2 Saturation ABG Base Excess VBG pH VBG pCO2 VBG pO2 VBG HCO3 VBG O2 Saturation VBG Base Excess Sodium 132 L Potassium 4.2 Chloride 101 Carbon Dioxide 12 L* Anion Gap 19 H BUN 35 H Creatinine 2.91 H Est GFR ( Amer) 26.6 Est GFR (Non-Af Amer) 22.0 BUN/Creatinine Ratio 12.0 Glucose 119 H Lactic Acid Calcium 7.8 L Magnesium 1.4 L Total Bilirubin 1.20 H AST 166 H ALT 223 H Alkaline Phosphatase 167 H Ammonia 44 Total Creatine Kinase 304 H Troponin I 0.07 H* Total Protein 5.6 L Albumin 2.9 L Globulin 2.7 Albumin/Globulin Ratio 1.1 TSH 8.29 H Urine Color Urine Appearance Urine pH Ur Specific [place] Urine Protein Urine Ketones Urine Blood Urine Nitrate Urine Bilirubin Urine Urobilinogen Ur Leukocyte Esterase Urine WBC (Auto) Urine RBC (Auto) Urine Bacteria Hyaline Casts Urine Glucose Urine Opiates Screen Acetaminophen < 15 Ur Barbiturates Screen Ur Phencyclidine Scrn Ur Amphetamines Screen U Benzodiazepines Scrn Urine Cocaine Screen U Cannabinoids Screen Serum Alcohol < 10 08/24/18 08/24/18 08/24/18 11:38 13:07 13:07 WBC RBC Hgb Hct MCV MCH MCHC RDW Plt Count MPV Neut % (Auto) Lymph % (Auto) Sunflower % (Auto) Eos % (Auto) Baso % (Auto) Absolute Neuts (auto) Absolute Lymphs (auto) Absolute Monos (auto) Absolute Eos (auto) Absolute Basos (auto) Absolute Nucleated RBC Immature Gran % Neutrophils % Lymphocytes % Monocytes % Metamyelocytes % Nucleated RBC % Normal RBC Morphology ABG pH ABG pCO2 News Clipping Cutter ABG pO2 News Clipping Cutter ABG HCO3 News Clipping Cutter ABG O2 Saturation News Clipping Cutter ABG Base Excess News Clipping Cutter VBG pH 7.39 VBG pCO2 28 L VBG pO2 < 38 VBG HCO3 18.8 L VBG O2 Saturation 62.7 L VBG Base Excess -6.6 L Sodium Potassium Chloride Carbon Dioxide Anion Gap BUN Creatinine Est GFR ( Amer) Est GFR (Non-Af Amer) BUN/Creatinine Ratio Glucose Lactic Acid 6.7 H* Calcium Magnesium Total Bilirubin AST ALT Alkaline Phosphatase Ammonia Total Creatine Kinase Troponin I Total Protein Albumin Globulin Albumin/Globulin Ratio TSH Urine Color Urine Appearance Urine pH Ur Specific [place] Urine Protein Urine Ketones Urine Blood Urine Nitrate Urine Bilirubin Urine Urobilinogen Ur Leukocyte Esterase Urine WBC (Auto) Urine RBC (Auto) Urine Bacteria Hyaline Casts Urine Glucose Urine Opiates Screen Acetaminophen Ur Barbiturates Screen Ur Phencyclidine Scrn Ur Amphetamines Screen U Benzodiazepines Scrn Urine Cocaine Screen U Cannabinoids Screen Serum Alcohol 08/24/18 08/24/18 13:41 13:41 WBC RBC Hgb Hct MCV MCH MCHC RDW Plt Count MPV Neut % (Auto) Lymph % (Auto) Sunflower % (Auto) Eos % (Auto) Baso % (Auto) Absolute Neuts (auto) Absolute Lymphs (auto) Absolute Monos (auto) Absolute Eos (auto) Absolute Basos (auto) Absolute Nucleated RBC Immature Gran % Neutrophils % Lymphocytes % Monocytes % Metamyelocytes % Nucleated RBC % Normal RBC Morphology ABG pH ABG pCO2 ABG pO2 ABG HCO3 ABG O2 Saturation ABG Base Excess VBG pH VBG pCO2 VBG pO2 VBG HCO3 VBG O2 Saturation VBG Base Excess Sodium Potassium Chloride Carbon Dioxide Anion Gap BUN Creatinine Est GFR ( Amer) Est GFR (Non-Af Amer) BUN/Creatinine Ratio Glucose Lactic Acid Calcium Magnesium Total Bilirubin AST ALT Alkaline Phosphatase Ammonia Total Creatine Kinase Troponin I Total Protein Albumin Globulin Albumin/Globulin Ratio TSH Urine Color Yellow Urine Appearance Clear Urine pH 5.0 Ur Specific [place] 1.012 Urine Protein Negative Urine Ketones Negative Urine Blood 1+ A Urine Nitrate Negative Urine Bilirubin Negative Urine Urobilinogen Negative Ur Leukocyte Esterase Negative Urine WBC (Auto) Trace(0-5/hpf) Urine RBC (Auto) Trace(0-2/hpf) Urine Bacteria 2+ A Hyaline Casts Present A Urine Glucose 3+(>=500 mg/dl) A Urine Opiates Screen None detected Acetaminophen Ur Barbiturates Screen None detected Ur Phencyclidine Scrn None detected Ur Amphetamines Screen None detected U Benzodiazepines Scrn None detected Urine Cocaine Screen None detected U Cannabinoids Screen None detected Serum Alcohol Imaging: CT brain 08/24 - reviewed report - multple hemorrhagic mets, no interval change from 08/18 CT brain; no change in right frontal resection site CXR 08/24 - no active disease noted Assessment: 63y M w/pmhx of 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 On EMS arrival, patient was unresponsive, sats 80s, started on 10L o2, BP 49/33. In ER, he was started on sepsis protocol, IV abx, IVF, central line placed and started on levophed infusion. -Encephalopathy -Severe Sepsis with Shock suspected -Unclear source of sepsis -Metabolic acidosis -TENZIN -Elevated LFTs -mild rhabdo Metastatic Melanoma to brain Recent right frontal resection Plan: Neuro- -encephalopathy but mild responses given to commands and questions -able to protect airway -CT brain 08/24 - no change from prior; known melanoma lesions; no new edema noted -cont decadron for edema; cont keppra 500mg q12h IV -aspiration prec, HOB elevated -sepsis workup -Delirium prec; avoid BDZ CVS- -Shock, low grade temps; suspect sepsis -Levophed infusion -IVF bolus; now infusion, cont NS 100cc/hr -trend LA -making urine -IV abx -hold antihypertensives -cont decadron; s/p hydrocortisone 100mg x1 -Titrate Pressors to Maintain MAP>65 Resp- -protecting airway, couhing, no distress, on RA -CXR 08/24 without focal process -no indication for intubation currently -Wean Fio2 to keep sat>92% -Bronchodilators PRN, Aspiration prec, HOB elevated ID- tmax 100.4, leukocytosis prior to discharge in teens but 40k today -Blood cx sent; urinalysis LE-, nitrate-, wbc trace, bacteria 2+, pending culture -CXR clear -Started empiric vanco x1 dose and cefepime 1gm q24h (day#1); agree GI- -NPO -aspiration prec -GI prophylaxis as needed Renal- -TENZIN, metabolic acidosis, K okay; suspect TENZIN from sepsis/hypoperfusion -IVF bolus 3-5L given; NS infusion 100cc/hr now -IV pressors to maintain perfusion -follow urine output -check cpk in AM -strict I/O, replete to keep K>4, Mg>2 -salinas as indicated Heme- hg stable -plt stable -wbc elevated, suspect from decadrone for cerebral edema; but now WBC had large jump from 08/20 -cont decadrone for cerebral edema -will discuss with heme about dvt proph given cerebral lesions with some hemorrhage/edema; d/c heparin sq for now; SCD okay Endo- Maintain BG<200, insulin protocol as needed Musculsk- pressure ulcer prophylaxis. Bedrest. Wounds- none Nutrition- NPO DVT prophylaxis: SCD; avoid due to hemorrhagic lesions in brain GI prophylaxis: none indicated Central Line: RIJ TLC 08/24 Arterial Line: no [place] Cathetor: yes Disposition: Patient requires Critical Care/ICU for encephalopathy, septic shock suspected, TENZIN Patient Clinical Status: guarded, critical Code Status: DNR Total Critical Care time is 50 minutes, excluding procedures/teaching Jose J Jacques MD Assayer Helper (Electronically Signed)
[2018-08-24] MEDS ORDERED: HYDROmorphone INJ* 0.5 MG/0.5 ML SYRINGE IV SLOW PU PRN (17:53)
[2018-08-24 18:05] LABS: Anion Gap 12 mmol/L (2-11); BUN/Creatinine Ratio 14.9 (8-20); Blood Urea Nitrogen 35 mg/dL (6-24); CO2 Carbon Dioxide 15 mmol/L (22-32); Calcium 7.4 mg/dL (8.6-10.3); Chloride 107 mmol/L (101-111); EGFR African American 34.1 (>60); EGFR Non-African American 28.2 (>60); Glucose 318 mg/dL (70-100); Potassium 4.5 mmol/L (3.5-5.0); Sodium 134 mmol/L (135-145)
[2018-08-24 18:09] LABS: Troponin I 0.68 ng/mL (<0.04)
[2018-08-24 21:01] LABS: Troponin I 1.62 ng/mL (<0.04)
--- NOTE | 2018-08-24 21:16 | HP ---
CC: Dr. Castro; Dr. Rangel * ADMISSION HISTORY AND PHYSICAL: DATE OF ADMISSION: 08/24/18 PRIMARY CARE PROVIDER: Dr. Castro. PRIMARY ONCOLOGIST: Dr. Rangel. CONSULTING GAS DISTRIBUTION AND EMERGENCY CLERK: Dr. Jacques. ATTENDING PHYSICIAN: Dr. Reyes.* (DICTATED BY MARIAM BRAND) ADMITTING PROVIDER: MARIAM Brand. CHIEF COMPLAINT: Unresponsive. HISTORY OF PRESENT ILLNESS: This is a 63-year-old male with metastatic melanoma , discharged yesterday after craniotomy with resection of a large symptomatic frontal lesion, confirmed to be metastatic melanoma. The patient had recovered nicely from craniotomy, was still mildly lethargic and had some intermittent episodes of confusion, but was ambulating independently at the time of discharge. The patient was taken home by his , who reports that on the car ride home he seemed to be confused and took the dressing off of his head. When she got him home, he was able to climb the steps into the house, but was somewhat unstable doing so. Shortly after they had gotten home, he got up and started walking to the door. When she asked what he was doing, he said he was going out and she accompanied him out to the front porch. He stood on the front porch and wet his pants. She was subsequently able to get him back inside and settled in his chair at which point he fell asleep and spent the rest of the day sleeping. She attempted to transfer him into bed for the evening, but was unable to and he slept the night in the chair. This morning, she attempted to wake him, but he was unable to communicate or follow commands, at which point she contacted 911 and he was transferred back to the emergency department for evaluation. Upon reaching the emergency department, he was hypotensive and hypoxic. His hypotension responded minimally to fluid boluses in the emergency department. He was afebrile and at the time of evaluation was able to answer a few yes-or- no questions. PAST MEDICAL HISTORY: 1. Metastatic melanoma. 2. 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 3. Insulin-dependent diabetes. 4. Hypertension. PAST SURGICAL HISTORY: 1. Knee surgery. 2. Cervical spine surgery. 3. Umbilical hernia repair. HOME MEDICATIONS: 1. Lipitor 40 mg p.o. daily. 2. Vitamin D3 2000 units p.o. daily. 3. Gabapentin 100 mg p.o. 3 times daily. 4. Lantus 55 units subcu daily. 5. Metoprolol succinate 50 mg p.o. daily. 6. Multivitamin 1 capsule p.o. daily. 7. Ramipril 10 mg p.o. daily. 8. Dexamethasone 4 mg p.o. twice daily. 9. Keppra 500 mg p.o. twice daily x7 days. 10. Imodium 2 mg p.r.n. diarrhea. FAMILY HISTORY: The patient's mother at the age of 70 with history of liver cancer. His brother of pancreatic cancer at 68. SOCIAL HISTORY: The patient lives at home with his . No significant smoking history. Occasional alcohol. 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 REVIEW OF SYSTEMS: Unable to obtain a full review of systems, history is primarily obtained from his . The patient is able to report that he is having no pain or shortness of breath. PHYSICAL EXAMINATION GENERAL: This is a 63-year-old gentleman who appears acutely ill and responds minimally to verbal stimulation, keeps his eyes closed throughout the exam, and occasionally answers yes or no. VITAL SIGNS: Initial vitals: Temperature 97.2 degrees Fahrenheit, pulse 105 beats per minute, respiratory rate of 26, oxygen saturation 100% on 10 L, blood pressure 58/47 mmHg. HEENT: Head shows recent frontal craniotomy site without complications and sutures remain in place. RESPIRATORY: Lungs are clear to auscultation, without wheezes, crackles, or rhonchi. CARDIOVASCULAR: Heart has regular rate and rhythm, without murmurs, rubs, or gallops. ABDOMEN: Soft and nontender to palpation. EXTREMITIES: No edema. SKIN: The patient has nodular lesions covering his right great toe and leg without evidence for secondary cellulitis. NEURO: The patient is able to follow few commands, answer some yes and no questions. DIAGNOSTIC STUDIES/LAB DATA: CBC shows a white blood cell count of 40,900, hemoglobin 12.4 g/dL, and platelet count of 201,000. ABG was unable to be performed, venous blood gas shows pH of 7.39, pCO2 of 28, bicarb of 18.8. Comprehensive metabolic panel shows a sodium of 132, serum bicarb of 12, BUN 35 , creatinine of 2.91. Calcium 7.8 with an albumin of 2.9, total bili of 1.2, AST 166, ALT 223. Ammonia 44. Lactic acid 6.7. Troponin 0.07. TSH 8.29. Urinalysis shows 2+ bacteria, 1+ blood. Toxicology screening is negative. Imaging: CT brain without contrast shows multiple hemorrhagic intraaxial and metastatic lesions without significant interval change when compared to CT from 08/18/18. There is no significant change in the gas and fluid filled right frontal pole tumor resection cavity, with a small volume of dependent hyperdense hemorrhage compared with the 08/18/18 exam. There is 2 mm shift from right to left, without significant change. No new areas appreciated. Chest x-ray shows no acute disease. CT chest, abdomen and pelvis without contrast shows no acute disease. Chest x-ray post central line shows a right IJ catheter, in good position. EKG shows a sinus rhythm without acute ischemic changes. ASSESSMENT AND PLAN: This is a 63-year-old gentleman with metastatic melanoma, status post craniotomy with frontal tumor excision on 08/17/17, who was discharged home yesterday and returns today with minimal responsiveness, new hypoxia, and hypotension unresponsive to fluid bolus, in addition to very elevated lactic acid and leukocytosis indicating severe sepsis of unclear source. 1. Severe sepsis with refractory hypotension indicating shock: The patient will be admitted to ICU and requested consultation from claim professional, Dr. Jacques. The patient will receive additional fluid bolus. Ordered stress test dose hydrocortisone at 100 mg IV x1. If he has no response to hydrocortisone bolus, the patient will be started on vasopressors with a goal MAP of greater than 60. Blood cultures have been obtained. Regarding a source for infection, he did have a Santana catheter throughout his prior hospital stay and could consider urinary source. Urinalysis shows bacteria, but is otherwise rather benign appearing. A CT of the chest, abdomen and pelvis was obtained without contrast due to his acute renal dysfunction, but shows no obvious sources of infection. We will plan to cover with cefepime and await culture results. Santana catheter was placed for evaluation of intake and output. 2. Acute kidney injury: This is likely some hypovolemia versus acute tubular necrosis secondary to hypotension. The patient has been hydrated aggressively and we will follow his renal function closely. Medications have been renally adjusted. 3. Transaminitis: Likely secondary to shock, no acute pathology appreciated on CT of the liver, apart from possibly new metastatic liver lesions without evidence for obstruction. 4. Insulin dependent diabetes: Anticipate hyperglycemia with continued use of dexamethasone and we will cover with basal bolus regimen. 5. Status post craniotomy, postop day 7: Contacted neurosurgeon, Dr. Marroquin, to notify him of this admission. There were no acute changes seen on CT scan that contributes to his current presentation. 6. Metastatic melanoma: Plan was to pursue gamma knife therapy at [facility] next week with likely initiation of Temodar before immunotherapy could be reinitiated when steroids had been tapered. He has evidence of new liver lesions and new diagnosis of brain metastases. The patient's , at this point, is considering not pursuing any additional treatment. Depending on how he does through this acute phase, we will consider hospice at the time of discharge. If he does not show significant improvement over the initial 24 to 48 hours of hospitalization, we may pursue comfort measures on an inpatient basis. 7. Code status: After a long discussion with the patient's , she is agreeable to DNR/DNI. She would like aggressive management for this acute hospitalization. 8. DVT prophylaxis: Subcu heparin q.8 hours. DISPOSITION: The patient is being admitted to ICU. We will plan to continue aggressive measures, short of intubation. If the patient does not show significant improvement over the next 24 to 48 hours, we will discuss with the family regarding inpatient comfort measures. MARIAM BRAND [id number]/CPS #: [id number] [facility]ITALYoselin
[2018-08-25] MEDS: levETIRAcetam 500 MG IVPREMIX* 500 MG/100 ML BAG IV SCH ×2 (00:22→14:10)
[2018-08-25] MEDS: Insulin LISPRO* 1 UNITS UNIT SUBCUT SCH ×6 (02:13→22:12)
[2018-08-25] MEDS: NS 0.9% 1000 ML** 1,000 ML IV SCH (02:13)
[2018-08-25 04:26] LABS: Hematocrit 31 % (42-52); Hemoglobin 10.6 g/dL (14.0-18.0); Mean Corpuscular HGB Conc 34 g/dL (31-36); Mean Corpuscular Hemoglobin 31 pg (27-31); Mean Corpuscular Volume 91 fL (80-94); Mean Platelet Volume 7.5 fL (7.4-10.4); Platelet Count 144 10^3/uL (150-450); Red Blood Count 3.42 10^6 /uL (4.18-5.48); Red Cell Distribution Width 18 % (10-15); White Blood Count 19.1 10^3/uL (3.5-10.8)
[2018-08-25 04:43] LABS: ALT 234 U/L (7-52); AST 156 U/L (13-39); Albumin 2.8 g/dL (3.2-5.2); Alkaline Phosphatase 165 U/L (34-104); Anion Gap 8 mmol/L (2-11); BUN/Creatinine Ratio 22.4 (8-20); Blood Urea Nitrogen 30 mg/dL (6-24); CO2 Carbon Dioxide 20 mmol/L (22-32); Calcium 8.1 mg/dL (8.6-10.3); Chloride 108 mmol/L (101-111); EGFR African American 65.1 (>60); EGFR Non-African American 53.8 (>60); Globulin 2.7 g/dL (2-4); Glucose 284 mg/dL (70-100); Indirect Bilirubin 0.6 mg/dL (0.3-1.0); Phosphorus 3.8 mg/dL (2.5-5.0); Potassium 3.7 mmol/L (3.5-5.0); Sodium 136 mmol/L (135-145); Total Protein 5.5 g/dL (6.4-8.9)
[2018-08-25 04:58] LABS: Troponin I 1.82 ng/mL (<0.04)
[2018-08-25] MEDS: Dexamethasone IV* 4 MG/ML 1 ML (4 MG) IV SLOW PU SCH ×3 (05:45→22:13)
[2018-08-25] MEDS ORDERED: KCL 20 MEQ/100 ML IVPREMIX* 20 MEQ/100 ML BAG IV ONE (06:15)
[2018-08-25 06:39] LABS: Creatine Kinase 2967 U/L (10-223)
[2018-08-25] MEDS ORDERED: Cefepime 1 GM in Dextrose(*) 1 GM/50 ML BAG IV SCH (11:00)
[2018-08-25] MEDS ORDERED: Insulin GLARGINE(*) 1 UNITS UNIT SUBCUT SCH (12:59)
[2018-08-25] MEDS ORDERED: NS 0.9% 1000 ML** 1,000 ML IV SCH (13:07)
--- NOTE | 2018-08-25 13:14 | PN ---
Progress Note - Progress Note Date of Service: 08/25/18 Note: Progress Note -- Critical Care 24 hour events -overnight off levophed; afebrile -more awake, and responsive and answering questions -on RA, no distress, no complaints offered by patient Tele: NSR Vitals: Vital Signs Temp 97.2 F 08/25/18 11:00 Pulse 81 08/25/18 11:00 Resp 15 08/25/18 11:00 BP 90/55 08/25/18 11:00 Pulse Ox 99 08/25/18 11:00 Intake & Output 08/24/18 08/25/18 08/25/18 18:59 06:59 18:59 Intake Total 5146 1146 Output Total 900 3394 1425 Balance 1565 -8797 -4619 Weight 83.9 kg 82.2 kg Intake: IV Fluids 4481 1046 NS (0.9%) 2181 1046 IVPB 544 100 Keppra 100 NS (0.9%) 544 Medicated IV 121 Levophed 121 Oral 0 Output: [place] 900 3394 1425 Other: Estimated Stool Amount Medium O2/Vent: RA Infusions: NS 100cc/hr Current Medications: Acetaminophen (Tylenol Tab*) 650 mg PO Q4H PRN PRN Reason: FEVER/PAIN Dexamethasone Sodium Phosphate (Decadron Iv*) 4 mg IV SLOW PU Q8HR [facility] Last Admin: 08/25/18 05:45 Dose: 4 mg Dextrose (D50w Syringe 50 Ml*) 12.5 gm IV PUSH .FOR FS < 60 - SS PRN PRN Reason: FS < 60 Hydromorphone HCl (Dilaudid Inj*) 0.5 mg IV SLOW PU ONCE PRN PRN Reason: PAIN Sodium Chloride (Ns 0.9% 1000 Ml) 1,000 mls @ 100 mls/hr IV PER RATE [facility] Last Admin: 08/25/18 02:13 Dose: 100 mls/hr Levetiracetam (Keppra Iv Premix*) 500 mg in 100 mls @ 400 mls/hr IV Q12H [facility] Last Admin: 08/25/18 00:22 Dose: 400 mls/hr Cefepime HCl (Maxipime 1 Gm In Dextrose Duplex (*)) 1 gm in 50 mls @ 100 mls/ hr IV Q24H [facility] Norepinephrine Bitartrate (Levophed 16 Mcg/Ml Premix Bag*) 4,000 mcg in 250 mls @ 18.75 mls/hr IV .INITIAL RATE [facility]; Protocol Last Admin: 08/24/18 14:12 Dose: 18.75 mls/hr Insulin Glargine (Lantus(*)) 40 units SUBCUT Q24H [facility] Last Admin: 08/24/18 17:38 Dose: 40 units Insulin Human Lispro (Humalog*) 0 units SUBCUT Q4HR [facility]; Protocol Last Admin: 08/25/18 09:23 Dose: 6 units Ondansetron HCl (Zofran Inj*) 4 mg IV Q4H PRN PRN Reason: NAUSEA/VOMITING Physical Exam: Constitutional: awake, alert, responsive, no distress, no diaphoresis Head: craniotomy site+, no new trauma noted Eyes: no pallor, no icterus ENT: moist mucous membranes Neck: soft, supple, no jvd, no stridor CVS: normal rate, regular, no murmur Resp: bilateral air entry, no rhales, no wheeze, no rhonchi, no acc muscle use Abdomen/GI: soft, nontender, nondistended, BS+ Ext/Msk: warm, pulses+, no edema Skin: intact, warm; Right foot grt toe amputation; noted LE melanoma Neuro: awake, alert, oriented x2, moving all ext Labs: Laboratory Results - last 24 hr 08/24/18 08/24/18 08/24/18 10:07 13:07 13:07 WBC RBC Hgb Hct MCV MCH MCHC RDW Plt Count MPV ABG pH ABG pCO2 Manager Non Profit ABG pO2 Manager Non Profit ABG HCO3 Manager Non Profit ABG O2 Saturation Manager Non Profit ABG Base Excess Manager Non Profit VBG pH 7.39 VBG pCO2 28 L VBG pO2 < 38 VBG HCO3 18.8 L VBG O2 Saturation 62.7 L VBG Base Excess -6.6 L Sodium 132 L Potassium 4.2 Chloride 101 Carbon Dioxide 12 L* Anion Gap 19 H BUN 35 H Creatinine 2.91 H Est GFR ( Amer) 26.6 Est GFR (Non-Af Amer) 22.0 BUN/Creatinine Ratio 12.0 Glucose 119 H POC Glucose (mg/dL) Lactic Acid Calcium 7.8 L Phosphorus Magnesium 1.4 L Total Bilirubin 1.20 H Direct Bilirubin Indirect Bilirubin AST 166 H ALT 223 H Alkaline Phosphatase 167 H Ammonia Total Creatine Kinase 304 H Troponin I 0.07 H* Total Protein 5.6 L Albumin 2.9 L Globulin 2.7 Albumin/Globulin Ratio 1.1 TSH 8.29 H Urine Color Urine Appearance Urine pH Ur Specific Morton Urine Protein Urine Ketones Urine Blood Urine Nitrate Urine Bilirubin Urine Urobilinogen Ur Leukocyte Esterase Urine WBC (Auto) Urine RBC (Auto) Urine Bacteria Hyaline Casts Urine Glucose Urine Opiates Screen Acetaminophen < 15 Ur Barbiturates Screen Ur Phencyclidine Scrn Ur Amphetamines Screen U Benzodiazepines Scrn Urine Cocaine Screen U Cannabinoids Screen Serum Alcohol < 10 08/24/18 08/24/18 08/24/18 13:41 13:41 16:42 WBC RBC Hgb Hct MCV MCH MCHC RDW Plt Count MPV ABG pH ABG pCO2 ABG pO2 ABG HCO3 ABG O2 Saturation ABG Base Excess VBG pH VBG pCO2 VBG pO2 VBG HCO3 VBG O2 Saturation VBG Base Excess Sodium Potassium Chloride Carbon Dioxide Anion Gap BUN Creatinine Est GFR ( Amer) Est GFR (Non-Af Amer) BUN/Creatinine Ratio Glucose POC Glucose (mg/dL) Lactic Acid 1.9 Calcium Phosphorus Magnesium Total Bilirubin Direct Bilirubin Indirect Bilirubin AST ALT Alkaline Phosphatase Ammonia Total Creatine Kinase Troponin I Total Protein Albumin Globulin Albumin/Globulin Ratio TSH Urine Color Yellow Urine Appearance Clear Urine pH 5.0 Ur Specific Morton 1.012 Urine Protein Negative Urine Ketones Negative Urine Blood 1+ A Urine Nitrate Negative Urine Bilirubin Negative Urine Urobilinogen Negative Ur Leukocyte Esterase Negative Urine WBC (Auto) Trace(0-5/hpf) Urine RBC (Auto) Trace(0-2/hpf) Urine Bacteria 2+ A Hyaline Casts Present A Urine Glucose 3+(>=500 mg/dl) A Urine Opiates Screen None detected Acetaminophen Ur Barbiturates Screen None detected Ur Phencyclidine Scrn None detected Ur Amphetamines Screen None detected U Benzodiazepines Scrn None detected Urine Cocaine Screen None detected U Cannabinoids Screen None detected Serum Alcohol 08/24/18 08/24/18 08/24/18 16:49 17:41 20:30 WBC RBC Hgb Hct MCV MCH MCHC RDW Plt Count MPV ABG pH ABG pCO2 ABG pO2 ABG HCO3 ABG O2 Saturation ABG Base Excess VBG pH VBG pCO2 VBG pO2 VBG HCO3 VBG O2 Saturation VBG Base Excess Sodium 134 L Potassium 4.5 Chloride 107 Carbon Dioxide 15 L Anion Gap 12 H BUN 35 H Creatinine 2.35 H Est GFR ( Amer) 34.1 Est GFR (Non-Af Amer) 28.2 BUN/Creatinine Ratio 14.9 Glucose 318 H POC Glucose (mg/dL) 273 H Lactic Acid Calcium 7.4 L Phosphorus Magnesium Total Bilirubin Direct Bilirubin Indirect Bilirubin AST ALT Alkaline Phosphatase Ammonia Total Creatine Kinase Troponin I 0.68 H* 1.62 H* Total Protein Albumin Globulin Albumin/Globulin Ratio TSH Urine Color Urine Appearance Urine pH Ur Specific Morton Urine Protein Urine Ketones Urine Blood Urine Nitrate Urine Bilirubin Urine Urobilinogen Ur Leukocyte Esterase Urine WBC (Auto) Urine RBC (Auto) Urine Bacteria Hyaline Casts Urine Glucose Urine Opiates Screen Acetaminophen Ur Barbiturates Screen Ur Phencyclidine Scrn Ur Amphetamines Screen U Benzodiazepines Scrn Urine Cocaine Screen U Cannabinoids Screen Serum Alcohol 08/24/18 08/24/18 08/24/18 20:30 20:30 20:32 WBC RBC Hgb Hct MCV MCH MCHC RDW Plt Count MPV ABG pH ABG pCO2 ABG pO2 ABG HCO3 ABG O2 Saturation ABG Base Excess VBG pH VBG pCO2 VBG pO2 VBG HCO3 VBG O2 Saturation VBG Base Excess Sodium Potassium Chloride Carbon Dioxide Anion Gap BUN Creatinine Est GFR ( Amer) Est GFR (Non-Af Amer) BUN/Creatinine Ratio Glucose POC Glucose (mg/dL) 313 H Lactic Acid 1.6 Calcium Phosphorus Magnesium Total Bilirubin Direct Bilirubin Indirect Bilirubin AST ALT Alkaline Phosphatase Ammonia 36 Total Creatine Kinase Troponin I Total Protein Albumin Globulin Albumin/Globulin Ratio TSH Urine Color Urine Appearance Urine pH Ur Specific [place] Urine Protein Urine Ketones Urine Blood Urine Nitrate Urine Bilirubin Urine Urobilinogen Ur Leukocyte Esterase Urine WBC (Auto) Urine RBC (Auto) Urine Bacteria Hyaline Casts Urine Glucose Urine Opiates Screen Acetaminophen Ur Barbiturates Screen Ur Phencyclidine Scrn Ur Amphetamines Screen U Benzodiazepines Scrn Urine Cocaine Screen U Cannabinoids Screen Serum Alcohol 08/25/18 08/25/18 08/25/18 01:33 04:11 04:11 WBC 19.1 H RBC 3.42 L Hgb 10.6 L Hct 31 L MCV 91 MCH 31 MCHC 34 RDW 18 H Plt Count 144 L MPV 7.5 ABG pH ABG pCO2 ABG pO2 ABG HCO3 ABG O2 Saturation ABG Base Excess VBG pH VBG pCO2 VBG pO2 VBG HCO3 VBG O2 Saturation VBG Base Excess Sodium 136 Potassium 3.7 Chloride 108 Carbon Dioxide 20 L Anion Gap 8 BUN 30 H Creatinine 1.34 H Est GFR ( Amer) 65.1 Est GFR (Non-Af Amer) 53.8 BUN/Creatinine Ratio 22.4 H Glucose 284 H POC Glucose (mg/dL) 292 H Lactic Acid Calcium 8.1 L Phosphorus 3.8 Magnesium 2.0 Total Bilirubin 0.90 Direct Bilirubin 0.30 H Indirect Bilirubin 0.6 AST 156 H ALT 234 H Alkaline Phosphatase 165 H Ammonia Total Creatine Kinase 2967 H Troponin I 1.82 H* Total Protein 5.5 L Albumin 2.8 L Globulin 2.7 Albumin/Globulin Ratio 1.0 TSH Urine Color Urine Appearance Urine pH Ur Specific [place] Urine Protein Urine Ketones Urine Blood Urine Nitrate Urine Bilirubin Urine Urobilinogen Ur Leukocyte Esterase Urine WBC (Auto) Urine RBC (Auto) Urine Bacteria Hyaline Casts Urine Glucose Urine Opiates Screen Acetaminophen Ur Barbiturates Screen Ur Phencyclidine Scrn Ur Amphetamines Screen U Benzodiazepines Scrn Urine Cocaine Screen U Cannabinoids Screen Serum Alcohol 08/25/18 08/25/18 08/25/18 04:11 04:12 09:00 WBC RBC Hgb Hct MCV MCH MCHC RDW Plt Count MPV ABG pH ABG pCO2 ABG pO2 ABG HCO3 ABG O2 Saturation ABG Base Excess VBG pH VBG pCO2 VBG pO2 VBG HCO3 VBG O2 Saturation VBG Base Excess Sodium Potassium Chloride Carbon Dioxide Anion Gap BUN Creatinine Est GFR ( Amer) Est GFR (Non-Af Amer) BUN/Creatinine Ratio Glucose POC Glucose (mg/dL) 287 H 248 H Lactic Acid 1.1 Calcium Phosphorus Magnesium Total Bilirubin Direct Bilirubin Indirect Bilirubin AST ALT Alkaline Phosphatase Ammonia Total Creatine Kinase Troponin I Total Protein Albumin Globulin Albumin/Globulin Ratio TSH Urine Color Urine Appearance Urine pH Ur Specific [place] Urine Protein Urine Ketones Urine Blood Urine Nitrate Urine Bilirubin Urine Urobilinogen Ur Leukocyte Esterase Urine WBC (Auto) Urine RBC (Auto) Urine Bacteria Hyaline Casts Urine Glucose Urine Opiates Screen Acetaminophen Ur Barbiturates Screen Ur Phencyclidine Scrn Ur Amphetamines Screen U Benzodiazepines Scrn Urine Cocaine Screen U Cannabinoids Screen Serum Alcohol Imaging: CT brain 08/24 - reviewed report - multple hemorrhagic mets, no interval change from 08/18 CT brain; no change in right frontal resection site CXR 08/24 - no active disease noted Assessment: 63y M w/pmhx of 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 On EMS arrival, patient was unresponsive, sats 80s, started on 10L o2, BP 49/33. In ER, he was started on sepsis protocol, IV abx, IVF, central line placed and started on levophed infusion. -Encephalopathy -Severe Sepsis with Shock -MSSA bacteremia -Metabolic acidosis -TENZIN -Elevated LFTs -mild rhabdo Metastatic Melanoma to brain Recent right frontal resection Plan: Neuro- -improving mental status; more alert; suspect metabolic/toxic -discussed with Neurosurg; MRI brain monday planned to eval further for any changes -encephalopathy but mild responses given to commands and questions-able to protect airway -CT brain 08/24 - no change from prior; known melanoma lesions; no new edema noted -cont decadron for edema; cont keppra 500mg q12h IV -aspiration prec, HOB elevated -Delirium prec; avoid BDZ CVS- -off pressors; shock resolved, BP stable -IV abx -repeat blood culture tomorrow for surveillance -TTE for eval of endocarditis -IVF NS 75cc/hr -cont decadron; s/p hydrocortisone 100mg x1 -Maintain MAP>65 Resp- -on RA, no distress -CXR 08/24 without focal process -Wean Fio2 to keep sat>92% -Bronchodilators PRN, Aspiration prec, HOB elevated ID- afebrile, wbc 40-19 -BLood cx with MSSA+ 4/4 bottles; repeat blood cx tomorrow for surveillance -TTE to eval for vegetations -Incr cefepime to 1gm q12h (day#2); likely will change to ancef or CTX tomorrow once sensitivities out and since he is allergic to PCN GI- -NPO -swallow eval -start diet once alert and able to take po and pass swallow -aspiration prec -GI prophylaxis as needed Renal- -TENZIN; suspect due to hypotension/sepsis -replete Kcl IV -making urine; cont IVF NS 75cc/hr -TENZIN improving -rhabo+, now 1999+; check level tommorrow; cont IVF hydration -strict I/O, replete to keep K>4, Mg>2 -salinas as indicated Heme- hg 10s, suspect diluted now -plt stable -wbc dec to 19 again; likekly was incr due to sepsis, also on steroids too -cont decadrone for cerebral edema -SCD only for now Endo- Maintain BG<200, insulin protocol as needed Musculsk- pressure ulcer prophylaxis. Bedrest. Wounds- none Nutrition- NPO, swallow eval DVT prophylaxis: SCD; avoid due to hemorrhagic lesions in brain GI prophylaxis: none indicated Central Line: RIJ TLC 08/24 Arterial Line: no [place] Cathetor: yes Disposition: Patient requires Critical Care/ICU for encephalopathy, severe sepsis Patient Clinical Status: guarded, critical Code Status: DNR Total Critical Care time is 35 minutes, excluding procedures/teaching Jose J Jacques MD Therapy Manager (Electronically Signed)
[2018-08-25] MEDS: Cefepime 1 GM in Dextrose(*) 1 GM/50 ML BAG IV SCH (16:52)
[2018-08-25] MEDS: Insulin GLARGINE(*) 1 UNITS UNIT SUBCUT SCH (16:54)
--- NOTE | 2018-08-25 17:23 | CONS ---
CONSULTATION NOTE: DATE OF CONSULT: 08/25/18 HISTORY OF PRESENT ILLNESS: The patient is a very pleasant 63-year-old gentleman with history of metastatic melanoma, who is status post right frontal craniotomy for resection of right frontal lesion, who was discharged the day before. The patient returned to the hospital because of altered mental status. The patient on admission was found to be septic and was admitted to the intensive care unit, on antibiotics and on pressors. Requested to see the patient by the oncology team. The patient in addition had a CT scan of the brain that did not reveal any changes. The patient was seen in the intensive care unit. Overnight, he tolerated IV fluids and he was weaned from pressors. He was continued on antibiotics while his blood cultures revealed Staph aureus. The patient has no complaints of headache. He denies any problem with weakness or numbness or tingling. He denies any seizures. The patient denies any drainage from the wound. PAST MEDICAL HISTORY: Metastatic melanoma; colitis, immune-mediated; insulin- dependent diabetes; hypertension. PAST SURGICAL HISTORY: Knee surgery, cervical spine surgery, umbilical hernia repair, craniotomy for metastatic tumor resection. HOME MEDICATIONS: 1. Lipitor. 2. Vitamin D. 3. Gabapentin. 4. Lantus. 5. Metoprolol. 6. Multivitamin. 7. Ramipril. 8. Dexamethasone. 9. Keppra. 10. Imodium. FAMILY HISTORY: Mother, liver cancer. Brother, pancreatic cancer. SOCIAL HISTORY: The patient is and lives at home with his . Tobacco: Negative. Alcohol: Occasional. Recreational drug use: Negative. 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 PHYSICAL EXAM: The patient is not in any acute distress. His wound is soft, clean, and dry, healing very well. His vital signs are stable. He is awake, alert, oriented x2. Pupils are equal and reactive. Cranial nerves II through XII are grossly intact. Motor 4-5/5 in all extremities. No pronator drift. Sensory grossly intact to light touch. Deep tendon reflexes +1 bilaterally. No clonus. No Babinski's. The patient has amputation of the right big toe and presence of a melanoma as well as a melanoma on his right [place] and right groin. DIAGNOSTIC STUDIES/LAB DATA: The patient had a CT scan of the brain revealing no acute changes. No significant difference from the previous CT scan. CBC reveals white blood count of 40,900, hemoglobin 12.4. Sodium 132, creatinine 2.9. Ammonia 44. Lactic acid 6.7. Urinalysis shows 2+ bacteria. ASSESSMENT: This is a very pleasant 63-year-old gentleman with history of metastatic melanoma, status post craniotomy for right frontal tumor resection on 08/17/18, with altered mental status and sepsis. PLAN: The patient is currently admitted by the oncology service to intensive care. He was started on IV antibiotics and IV pressors. He was given a stress dose of hydrocortisone 100 mg IV x1. Based on his mental status, the lack of changes on his CT scan as well as based on the lack of meningismus, central etiology of his sepsis is unlikely. Nevertheless, MRI of the brain may be considered once the patient is stable. We will follow the patient during his hospitalization. The patient is scheduled for gamma knife treatment in [place] next week with likely initiation of Temodar before immunotherapy. It could be initiated once steroids have been tapered per oncology plan. As reported to the patient's , given the prognosis, may consider alternative options such as hospice. Appreciate oncology care. Appreciate intensive unit care. Thank you for allowing us to participate in the care of this patient. Please do not hesitate to contact our office in case you have any further questions or concerns regarding the care of this patient. [id number]/CPS #: [id number] PAOLA
[2018-08-26] MEDS: levETIRAcetam 500 MG IVPREMIX* 500 MG/100 ML BAG IV SCH ×2 (01:05→12:59)
[2018-08-26] MEDS: Cefepime 1 GM in Dextrose(*) 1 GM/50 ML BAG IV SCH (01:27)
[2018-08-26] MEDS: Insulin LISPRO* 1 UNITS UNIT SUBCUT SCH ×5 (02:08→21:10)
[2018-08-26 05:42] LABS: Hematocrit 28 % (42-52); Hemoglobin 9.5 g/dL (14.0-18.0); Mean Corpuscular HGB Conc 34 g/dL (31-36); Mean Corpuscular Hemoglobin 30 pg (27-31); Mean Corpuscular Volume 90 fL (80-94); Mean Platelet Volume 7.7 fL (7.4-10.4); Platelet Count 161 10^3/uL (150-450); Red Blood Count 3.13 10^6 /uL (4.18-5.48); Red Cell Distribution Width 17 % (10-15); White Blood Count 14.9 10^3/uL (3.5-10.8)
[2018-08-26 06:00] LABS: ALT 169 U/L (7-52); AST 77 U/L (13-39); Albumin 2.7 g/dL (3.2-5.2); Alkaline Phosphatase 147 U/L (34-104); Anion Gap 7 mmol/L (2-11); Blood Urea Nitrogen 36 mg/dL (6-24); CO2 Carbon Dioxide 22 mmol/L (22-32); Calcium 8.5 mg/dL (8.6-10.3); Chloride 108 mmol/L (101-111); Creatine Kinase 690 U/L (10-223); EGFR African American 133.4 (>60); EGFR Non-African American 110.3 (>60); Globulin 2.7 g/dL (2-4); Glucose 189 mg/dL (70-100); Indirect Bilirubin 0.6 mg/dL (0.3-1.0); Phosphorus 3.1 mg/dL (2.5-5.0); Potassium 3.6 mmol/L (3.5-5.0); Sodium 137 mmol/L (135-145); Total Protein 5.4 g/dL (6.4-8.9)
[2018-08-26 06:06] LABS: Troponin I 0.56 ng/mL (<0.04)
[2018-08-26] MEDS: Dexamethasone IV* 4 MG/ML 1 ML (4 MG) IV SLOW PU SCH ×3 (06:15→22:59)
[2018-08-26] MEDS ORDERED: Potassium Chloride* LIQUID 20 MEQ/15 ML UDC PO ONE (08:26)
[2018-08-26] MEDS: NS 0.9% 1000 ML** 1,000 ML IV SCH ×2 (08:53→23:42)
[2018-08-26] MEDS ORDERED: Perflutren Lipid Microsphere* 3 ML VIAL ONE (09:04)
--- NOTE | 2018-08-26 09:18 | PN ---
Progress Note - Progress Note Date of Service: 08/26/18 Note: Progress Note -- Critical Care 24 hour events -awake, more alert; afebrile, on RA< no distress; no complaints offered -TTE ongoing -making urine -passed swallow overnight, for PO diet this morning Tele: NSR Vitals: Vital Signs Temp 97.0 F 08/26/18 08:29 Pulse 54 08/26/18 08:01 Resp 13 08/26/18 09:00 BP 102/65 08/26/18 08:01 Pulse Ox 100 08/26/18 08:01 Intake & Output 08/25/18 08/26/18 08/26/18 18:59 06:59 18:59 Intake Total 843 1296 Output Total 2400 557 100 Balance -1557 739 -100 Weight 82.9 kg Intake: IV Fluids 843 1021 NS (0.9%) 843 1021 IVPB 275 ABX - CEFEPIME 63 Keppra 212 Output: [place] 2400 557 100 O2/Vent: RA Infusions: NS 50cc/hr Current Medications: Acetaminophen (Tylenol Tab*) 650 mg PO Q4H PRN PRN Reason: FEVER/PAIN Dexamethasone Sodium Phosphate (Decadron Iv*) 4 mg IV SLOW PU Q8HR [facility] Last Admin: 08/26/18 06:15 Dose: 4 mg Dextrose (D50w Syringe 50 Ml*) 12.5 gm IV PUSH .FOR FS < 60 - SS PRN PRN Reason: FS < 60 Hydromorphone HCl (Dilaudid Inj*) 0.5 mg IV SLOW PU ONCE PRN PRN Reason: PAIN Levetiracetam (Keppra Iv Premix*) 500 mg in 100 mls @ 400 mls/hr IV Q12H [facility] Last Admin: 08/26/18 01:05 Dose: 400 mls/hr Cefazolin Sodium 2 gm/ Sodium (Chloride) 100 mls @ 200 mls/hr IVPB Q8H [facility] Sodium Chloride (Ns 0.9% 1000 Ml) 1,000 mls @ 50 mls/hr IV PER RATE [facility] Last Admin: 08/26/18 08:53 Dose: 50 mls/hr Insulin Glargine (Lantus(*)) 55 units SUBCUT Q24H [facility] Last Admin: 08/25/18 16:54 Dose: 55 units Insulin Human Lispro (Humalog*) 0 units SUBCUT Q4HR [facility]; Protocol Last Admin: 08/26/18 06:14 Dose: 3 units Ondansetron HCl (Zofran Inj*) 4 mg IV Q4H PRN PRN Reason: NAUSEA/VOMITING Physical Exam: Constitutional: awake, alert, responsive, no distress, no diaphoresis Head: craniotomy site+, no new trauma noted Eyes: no pallor, no icterus ENT: moist mucous membranes Neck: soft, supple, no jvd, no stridor CVS: normal rate, regular, no murmur Resp: bilateral air entry, no rhales, no wheeze, no rhonchi, no acc muscle use Abdomen/GI: soft, nontender, nondistended, BS+ Ext/Msk: warm, pulses+, no edema Skin: intact, warm; Right foot grt toe amputation; noted LE melanoma Neuro: awake, alert, oriented x2-3, moving all ext Labs: Laboratory Results - last 24 hr 08/24/18 08/25/18 08/25/18 09:47 04:12 09:00 WBC RBC Hgb Hct MCV MCH MCHC RDW Plt Count MPV Sodium Potassium Chloride Carbon Dioxide Anion Gap BUN Creatinine Est GFR ( Amer) Est GFR (Non-Af Amer) BUN/Creatinine Ratio Glucose POC Glucose (mg/dL) 287 H 248 H Calcium Phosphorus Magnesium Total Bilirubin Direct Bilirubin Indirect Bilirubin AST ALT Alkaline Phosphatase Total Creatine Kinase Troponin I Total Protein Albumin Globulin Albumin/Globulin Ratio Levetiracetam 2.4 L 08/25/18 08/25/18 08/26/18 16:18 21:36 01:27 WBC RBC Hgb Hct MCV MCH MCHC RDW Plt Count MPV Sodium Potassium Chloride Carbon Dioxide Anion Gap BUN Creatinine Est GFR ( Amer) Est GFR (Non-Af Amer) BUN/Creatinine Ratio Glucose POC Glucose (mg/dL) 248 H 258 H 200 H Calcium Phosphorus Magnesium Total Bilirubin Direct Bilirubin Indirect Bilirubin AST ALT Alkaline Phosphatase Total Creatine Kinase Troponin I Total Protein Albumin Globulin Albumin/Globulin Ratio Levetiracetam 08/26/18 08/26/18 08/26/18 05:16 05:18 05:18 WBC 14.9 H RBC 3.13 L Hgb 9.5 L Hct 28 L MCV 90 MCH 30 MCHC 34 RDW 17 H Plt Count 161 MPV 7.7 Sodium 137 Potassium 3.6 Chloride 108 Carbon Dioxide 22 Anion Gap 7 BUN 36 H Creatinine 0.72 Est GFR ( Amer) 133.4 Est GFR (Non-Af Amer) 110.3 BUN/Creatinine Ratio 50.0 H Glucose 189 H POC Glucose (mg/dL) 182 H Calcium 8.5 L Phosphorus 3.1 Magnesium 2.0 Total Bilirubin 0.80 Direct Bilirubin 0.20 H Indirect Bilirubin 0.6 AST 77 H ALT 169 H Alkaline Phosphatase 147 H Total Creatine Kinase 690 H Troponin I 0.56 H* Total Protein 5.4 L Albumin 2.7 L Globulin 2.7 Albumin/Globulin Ratio 1.0 Levetiracetam Imaging: CT brain 08/24 - reviewed report - multple hemorrhagic mets, no interval change from 08/18 CT brain; no change in right frontal resection site CXR 08/24 - no active disease noted Assessment: 63y M w/pmhx of 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 On EMS arrival, patient was unresponsive, sats 80s, started on 10L o2, BP 49/33. In ER, he was started on sepsis protocol, IV abx, IVF, central line placed and started on levophed infusion. -Encephalopathy, improved -Severe Sepsis with Shock, improved -MSSA bacteremia -Metabolic acidosis -TENZIN, improved -Elevated LFTs, improved -mild rhabdo, improved Metastatic Melanoma to brain Recent right frontal resection Plan: Neuro- -improving mental status; alert; suspect metabolic/toxic from bacteremia/sepsis -discussed with Neurosurg; MRI brain monday planned to eval further for any changes -CT brain 08/24 - no change from prior; known melanoma lesions; no new edema noted -cont decadron for edema; cont keppra 500mg q12h IV -aspiration prec, HOB elevated -Delirium prec; avoid BDZ CVS- -BP stable; cont IVF NS 50cc/hr -if taking po intake, can d/c IVF tomorrow -IV abx -TTE ongoing for eval of vegetations given MSSA bacteremia -cont decadron for metastatic lesions/edema -Maintain MAP>65 Resp- -on RA, no distress -CXR 08/24 without focal process -Wean Fio2 to keep sat>92% -Bronchodilators PRN, Aspiration prec, HOB elevated ID- afebrile, wbc 40-19-14 -BLood cx with MSSA+ 4/4 bottles; repeat blood cx today for surveillance -TTE to eval for vegetations -Change Cefepime to Ancef 2gm IV q8h (day#3); timinig based on next cultures and TTE findings GI- -passed bedside swallow, start diabetic diet po today -aspiration prec -GI prophylaxis as needed Renal- -TENZIN; suspect due to hypotension/sepsis; improved -replete KCL 40meq po -NS 50cc/hr, d/c by tomorrow -rhabo+, CPK downtrending, cont IVF hydration -strict I/O, replete to keep K>4, Mg>2 -salinas as indicated Heme- hg 10->9.5, no clear bleeding; diluted? -plt stable -cont decadrone for cerebral edema/metastatic lesions -SCD only for now Endo- Maintain BG<200, insulin protocol as needed Musculsk- pressure ulcer prophylaxis. oob to chair Wounds- none Nutrition- diabetic diet DVT prophylaxis: SCD; avoid due to hemorrhagic lesions in brain GI prophylaxis: none indicated Central Line: RIJ TLC 08/24 Arterial Line: no [place] Cathetor: yes; can likley d/c today Disposition: Patient requires Critical Care/ICU for encephalopathy, severe sepsis; Improved; can likely be able to be transferred to medical floor if okay with Oncology; CC will follow as needed, consult ID further management of bacteremia Patient Clinical Status: guarded Code Status: DNR Jose J Jacques MD Pulper Tender (Electronically Signed)
--- NOTE | 2018-08-26 14:09 | ECHO ---
*[facility]* [place] [id number] Fax #: [phone] Transthoracic Echocardiogram (Report amended [id number]) Patient: Abel, Height: 70 in / Enrrique Recinos 177.8 cm : 1955 Weight: 180.6 lb / Study Date: 08/26/2018 82.1 kg Age: 63 BP: 110 / 72 Gender: M BMI/BSA: 26 kg/m^2 HR: 61 bpm / 2 m^2 *Ec Teacher: Rosi Meyer [facility] *Referring Physician: Jose J Gonsalez *Reading Physician: Thaddeus Grimes MD Indications: Bacteremia. History: Metastatic melanoma, S/P craniotomy for brain lesion. Risk factors: Hypertension. Diabetes mellitus. Conclusions Summary: 1. Left ventricle: The cavity size is normal. Wall thickness is mildly increased. Systolic function is mildly reduced. The estimated ejection fraction is 50%. Mild diffuse hypokinesis with regional variations. 2. Right ventricle: The cavity size is normal. Systolic function is normal. 3. Left atrium: The atrium is normal in size. 4. Mitral valve: There is mild regurgitation. 5. Pulmonary arteries: Systolic pressure can not be accurately estimated. 6. No other significant valvular abnormalities noted. Recommendations: None prior for comparison at time of interpretation. Study data: Transthoracic echocardiogram. Procedure: Transthoracic echocardiography was performed. Image quality was adequate. Intravenous Definity , 3 mlswas administered. Image enhancement administered by intensive care unit RN. Complete 2D, spectral Doppler, and color flow Doppler. Location: ICU Patient status: Inpatient. Patient room number: 1. Rhythm: Normal sinus rhythm. Findings Left ventricle: The cavity size is normal. Wall thickness is mildly increased. Systolic function is mildly reduced. The estimated ejection fraction is 50%. Mild diffuse hypokinesis with regional variations. Left ventricular diastolic function parameters are normal. Right ventricle: The cavity size is normal. Systolic function is normal. Left atrium: The atrium is normal in size. Right atrium: The atrium is normal in size. Appears to be chiari network in RA. Mitral valve: The leaflets are normal thickness. There is no evidence of stenosis. There is mild regurgitation. Aortic valve: The valve is trileaflet. The leaflets are mildly thickened. There is no evidence of stenosis. There is trivial regurgitation. Tricuspid valve: The leaflets are normal thickness. There is no evidence of stenosis. There is trivial regurgitation. Pulmonic valve: Not well visualized. There is no evidence of stenosis. There is no significant regurgitation. Aorta: Aortic root: The aortic root is mildly dilated. Ascending aorta: The ascending aorta is poorly visualized. Aortic arch: The aortic arch is appears normal. Pulmonary arteries: Not well visualized. Systolic pressure can not be accurately estimated. Systemic veins: Inferior vena cava: The vessel is dilated. The respirophasic diameter changes are in the normal range (>= 50%). Measurements Left ventricle Value Ref Aortic valve Value Ref RYAN, LAX 5.0 cm 4.2 - 5.8 Jamar diam, ED 2.4 cm ---- ESD, LAX 3.7 cm 2.5 - 4.0 Peak v, S 0.98 m/sec ---- FS, LAX 27 % 25 - 43 VTI, S 23.1 cm ---- PW, ED, LAX 0.9 cm 0.6 - 1.0 Mean grad, S 2.0 mm Hg ---- EF 53 % 52 - 72 Peak grad, S 4.0 mm Hg ---- E', lat jamar, TDI 11.5 cm/sec >=10.0 E/e', lat jamar, 8 Mitral valve Value Ref TDI Peak E 0.91 m/sec ---- E', med jamar, TDI 8.0 cm/sec >=7.0 Peak A 0.55 m/sec ---- E/e', med jamar, 11 Decel time 193 ms ---- TDI Peak grad, D 3.3 mm Hg ---- E', avg, TDI 9.8 cm/sec Peak E/A ratio 1.7 ---- E/e', avg, TDI 9 <=14 Pulmonic valve Value Ref LVOT Value Ref Peak v, S 0.39 m/sec ---- Peak izabella, S 0.78 m/sec Peak grad, S 1.0 mm Hg ---- Mean grad, S 1 mm Hg Aortic root Value Ref Ventricular septum Value Ref Root diam 3.6 cm <4.1 IVS, ED (H) 1.2 cm 0.6 - 1.0 Aortic arch Value Ref Right ventricle Value Ref Arch diam 3.4 cm ---- RYAN, LAX 2.7 cm RYAN minor ax, A4C 3.1 cm 1.9 - 3.5 Decending aorta Value Ref mid Meet peak izabella 0.43 m/sec ---- Left atrium Value Ref Inferior vena cava Value Ref AP dim, ES (L) 2.90 cm 3.00 - Diam 2.3 cm ---- 4.00 ML dim, A4C 4.0 cm SI dim, A4C 6.3 cm Vol/bsa, ES, A/L 22 ml/m^2 16 - 34 Right atrium Value Ref SI dim, ES 5.1 cm 3.4 - 5.3 ML dim, ES, A4C 3.6 cm 2.6 - 4.4 Estimated RAP 3 mm Hg Legend: (L) and (H) soha values outside specified reference range. Thaddeus Carnes MD 08/26/2018 14:10
[2018-08-26] MEDS: ceFAZolin VIAL(*) 2 GM in NS 0.9% 100 ML* 100 ML IVPB SCH ×2 (14:53→22:59)
[2018-08-26] MEDS: Insulin GLARGINE(*) 1 UNITS UNIT SUBCUT SCH (16:59)
--- NOTE | 2018-08-27 00:33 | PN ---
Progress Note - Progress Note Date of Service: 08/26/18 SOAP: Subjective: []Delayed entry. Patient seen early in am in ICU. No events ON Objective: []VSS Wound s,c,d AAOx3 GEOVANNA, CN II-XII grossly intact Motor 5/5 no pronator drift Sensory grossly intact to light touch Assessment: []63 yom sp Rt craniotomy for Rt frontal melanoma met resection Plan: []Monitor VS, Neurochecks MRI in am. Steroids per oncolgy team. Responds to ABx Appreciate IM, ICU, oncology care. Steffi Marroquin MD
[2018-08-27] MEDS: levETIRAcetam 500 MG IVPREMIX* 500 MG/100 ML BAG IV SCH ×2 (01:22→12:22)
[2018-08-27] MEDS: Ramipril CAP* 10 MG PO SCH ×2 (01:22→07:13)
[2018-08-27] MEDS: Dexamethasone IV* 4 MG/ML 1 ML (4 MG) IV SLOW PU SCH ×3 (05:49→21:58)
[2018-08-27] MEDS: ceFAZolin VIAL(*) 2 GM in NS 0.9% 100 ML* 100 ML IVPB SCH ×3 (05:50→22:01)
[2018-08-27 07:05] LABS: Hematocrit 34 % (42-52); Hemoglobin 11.8 g/dL (14.0-18.0); Mean Corpuscular HGB Conc 35 g/dL (31-36); Mean Corpuscular Hemoglobin 31 pg (27-31); Mean Corpuscular Volume 89 fL (80-94); Mean Platelet Volume 7.7 fL (7.4-10.4); Platelet Count 232 10^3/uL (150-450); Red Cell Distribution Width 17 % (10-15); White Blood Count 14.4 10^3/uL (3.5-10.8)
[2018-08-27 07:27] LABS: Albumin 3.5 g/dL (3.2-5.2); Albumin/Globulin Ratio 1.1 (1-3); BUN/Creatinine Ratio 39.2 (8-20); EGFR African American 119.9 (>60); EGFR Non-African American 99.1 (>60); Globulin 3.1 g/dL (2-4); Indirect Bilirubin 0.5 mg/dL (0.3-1.0); Magnesium 1.7 mg/dL (1.9-2.7); Phosphorus 3.4 mg/dL (2.5-5.0); Potassium 3.9 mmol/L (3.5-5.0); Total Bilirubin 0.6 mg/dL (0.2-1.0); Total Protein 6.6 g/dL (6.4-8.9)
[2018-08-27] MEDS: Insulin LISPRO* 1 UNITS UNIT SUBCUT SCH ×4 (09:51→21:59)
[2018-08-27] MEDS: Insulin GLARGINE(*) 1 UNITS UNIT SUBCUT SCH (15:58)
--- NOTE | 2018-08-27 18:35 | PN ---
Progress Note - Progress Note Date of Service: 08/27/18 SOAP: Subjective: []Denies pain today. He is eating dinner, responsive to questions, oriented to place and person. He reports he worked with PT today buy says could not do much. No STOVALL. Acetaminophen (Tylenol Tab*) 650 mg PO Q4H PRN PRN Reason: FEVER/PAIN Dexamethasone Sodium Phosphate (Decadron Iv*) 4 mg IV SLOW PU Q8HR [facility] Last Admin: 08/27/18 12:50 Dose: 4 mg Dextrose (D50w Syringe 50 Ml*) 12.5 gm IV PUSH .FOR FS < 60 - SS PRN PRN Reason: FS < 60 Hydromorphone HCl (Dilaudid Inj*) 0.5 mg IV SLOW PU ONCE PRN PRN Reason: PAIN Levetiracetam (Keppra Iv Premix*) 500 mg in 100 mls @ 400 mls/hr IV Q12H [facility] Last Admin: 08/27/18 12:22 Dose: 400 mls/hr Cefazolin Sodium 2 gm/ Sodium (Chloride) 100 mls @ 200 mls/hr IVPB Q8H [facility] Last Admin: 08/27/18 12:51 Dose: 200 mls/hr Sodium Chloride (Ns 0.9% 1000 Ml) 1,000 mls @ 50 mls/hr IV PER RATE [facility] Last Admin: 08/26/18 23:42 Dose: 50 mls/hr Insulin Glargine (Lantus(*)) 55 units SUBCUT Q24H [facility] Last Admin: 08/27/18 15:58 Dose: 55 units Insulin Human Lispro (Humalog*) 0 units SUBCUT ACHS [facility]; Protocol Last Admin: 08/27/18 17:55 Dose: 9 units Ondansetron HCl (Zofran Inj*) 4 mg IV Q4H PRN PRN Reason: NAUSEA/VOMITING Ramipril (Altace Cap*) 10 mg PO DAILY [facility] Last Admin: 08/27/18 07:13 Dose: 10 mg Objective: [] Vital Signs Temp Pulse Resp BP Pulse Ox 98.8 F 73 18 139/69 97 08/27/18 15:00 08/27/18 15:00 08/27/18 15:00 08/27/18 15:00 06/24/19 15:00 HEENT: Mucosa moist no lesions. No LAD IJ line in place Incision w/o infection CTA RRR S1S2 w/ no murmurs. 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 Assessment: []63 year old metastatic melanoma with extensive BED AND BREAKFAST COOK disease. Tolerated resection of dominant lesions well and had planned gamma knife to residual disease this week. However, course then complicated by staph bacteremia and sepsis. Now with slow recovery and on exam today he has continued altered mental status. Extensive discussion with patients about goals of care. He is unlikely to re-gain QOL as he had defined it in the past. Hospice is most appropriate course. At this time he remains delirious and incontinent and cannot go home. Home is an options if he improves, if not family would like to consider hospice residence. Residence discussed including variability of be availability and cost. Plan: []1. Will continue Ancef antibiotics 2. PT/OT daily to work on ADLs 3. Consultation with hospice. 4. Disp dependent on progress over next several days. 5. DNR and no heroic measures. time with patient and chart was 45 min.
[2018-08-27] MEDS: NS 0.9% 1000 ML** 1,000 ML IV SCH (22:01)
--- NOTE | 2018-08-28 00:15 | PN ---
Progress Note - Progress Note Date of Service: 08/27/18 SOAP: Subjective: [] Delayed entry. Patient seen early in am in regular floor. No events ON Objective: []VSS Wound s,c,d AAOx3 GEOVANNA, CN II-XII grossly intact Motor 5/5 no pronator drift Sensory grossly intact to light touch Assessment: []63 yom sp Rt craniotomy for Rt frontal melanoma met resection Plan: [] Monitor VS, Neurochecks MRI w/o significant changes. Steroids per oncolgy team. Responds to ABx Appreciate IM, oncology care. Steffi Marroquin MD
[2018-08-28] MEDS: levETIRAcetam 500 MG IVPREMIX* 500 MG/100 ML BAG IV SCH ×2 (01:19→12:55)
[2018-08-28 06:27] LABS: Calcium 8.6 mg/dL (8.6-10.3); Potassium 3.7 mmol/L (3.5-5.0); Total Bilirubin 0.6 mg/dL (0.2-1.0)
[2018-08-28 06:33] LABS: Albumin/Globulin Ratio 1.1 (1-3); BUN/Creatinine Ratio 41.7 (8-20); EGFR African American 164.7 (>60); EGFR Non-African American 136.1 (>60); Globulin 2.7 g/dL (2-4); Total Protein 5.7 g/dL (6.4-8.9)
[2018-08-28] MEDS: ceFAZolin VIAL(*) 2 GM in NS 0.9% 100 ML* 100 ML IVPB SCH ×3 (06:37→22:11)
[2018-08-28] MEDS: Dexamethasone IV* 4 MG/ML 1 ML (4 MG) IV SLOW PU SCH ×3 (06:37→22:11)
[2018-08-28 06:52] LABS: BUN/Creatinine Ratio 43.1 (8-20); Calcium 8.5 mg/dL (8.6-10.3); EGFR African American 171.2 (>60); EGFR Non-African American 141.5 (>60); Hematocrit 30 % (42-52); Hemoglobin 10.2 g/dL (14.0-18.0); Magnesium 1.5 mg/dL (1.9-2.7); Mean Corpuscular HGB Conc 35 g/dL (31-36); Mean Corpuscular Hemoglobin 31 pg (27-31); Mean Corpuscular Volume 90 fL (80-94); Mean Platelet Volume 7.7 fL (7.4-10.4); Phosphorus 3.9 mg/dL (2.5-5.0); Platelet Count 192 10^3/uL (150-450); Potassium 3.6 mmol/L (3.5-5.0); Red Cell Distribution Width 17 % (10-15); White Blood Count 10.8 10^3/uL (3.5-10.8)
[2018-08-28] MEDS: Insulin LISPRO* 1 UNITS UNIT SUBCUT SCH ×4 (07:56→22:10)
[2018-08-28] MEDS: Ramipril CAP* 10 MG PO SCH (09:23)
--- NOTE | 2018-08-28 10:30 | PN ---
Progress Note - Progress Note Date of Service: 08/28/18 SOAP: Subjective: [Reports that he is doing well today. Denies STOVALL, confusion. Tired of being in bed. No complaints of pain. Reports that he has a good appetite and eating reasonably well. No overnight events.] Objective: [ Acetaminophen (Tylenol Tab*) 650 mg PO Q4H PRN PRN Reason: FEVER/PAIN Dexamethasone Sodium Phosphate (Decadron Iv*) 4 mg IV SLOW PU Q8HR [facility] Last Admin: 08/28/18 06:37 Dose: 4 mg Dextrose (D50w Syringe 50 Ml*) 12.5 gm IV PUSH .FOR FS < 60 - SS PRN PRN Reason: FS < 60 Hydromorphone HCl (Dilaudid Inj*) 0.5 mg IV SLOW PU ONCE PRN PRN Reason: PAIN Levetiracetam (Keppra Iv Premix*) 500 mg in 100 mls @ 400 mls/hr IV Q12H [facility] Last Admin: 08/28/18 01:19 Dose: 400 mls/hr Cefazolin Sodium 2 gm/ Sodium (Chloride) 100 mls @ 200 mls/hr IVPB Q8H [facility] Last Admin: 08/28/18 06:37 Dose: 200 mls/hr Sodium Chloride (Ns 0.9% 1000 Ml) 1,000 mls @ 50 mls/hr IV PER RATE [facility] Last Admin: 08/27/18 22:01 Dose: 50 mls/hr Insulin Glargine (Lantus(*)) 55 units SUBCUT Q24H [facility] Last Admin: 08/27/18 15:58 Dose: 55 units Insulin Human Lispro (Humalog*) 0 units SUBCUT ACHS [facility]; Protocol Last Admin: 08/28/18 07:56 Dose: Not Given Ondansetron HCl (Zofran Inj*) 4 mg IV Q4H PRN PRN Reason: NAUSEA/VOMITING Ramipril (Altace Cap*) 10 mg PO DAILY [facility] Last Admin: 08/28/18 09:23 Dose: 10 mg Laboratory Results - last 24 hr 08/24/18 08/27/18 08/27/18 10:07 11:54 16:05 WBC RBC Hgb Hct MCV MCH MCHC RDW Plt Count MPV Hem Pathologist Commnt Sodium Potassium Chloride Carbon Dioxide Anion Gap BUN Creatinine Est GFR ( Amer) Est GFR (Non-Af Amer) BUN/Creatinine Ratio Glucose POC Glucose (mg/dL) 263 H 281 H Calcium Phosphorus Magnesium Total Bilirubin AST ALT Alkaline Phosphatase Total Protein Albumin Globulin Albumin/Globulin Ratio 08/27/18 08/28/18 08/28/18 21:46 05:37 06:22 WBC RBC Hgb Hct MCV MCH MCHC RDW Plt Count MPV Hem Pathologist Commnt Sodium 136 138 Potassium 3.7 3.6 Chloride 107 105 Carbon Dioxide 19 L 24 Anion Gap 10 9 BUN 25 H 25 H Creatinine 0.60 L 0.58 L Est GFR ( Amer) 164.7 171.2 Est GFR (Non-Af Amer) 136.1 141.5 BUN/Creatinine Ratio 41.7 H 43.1 H Glucose 120 H 116 H POC Glucose (mg/dL) 309 H Calcium 8.6 8.5 L Phosphorus 3.9 Magnesium 1.5 L Total Bilirubin 0.60 AST 24 ALT 91 H Alkaline Phosphatase 154 H Total Protein 5.7 L Albumin 3.0 L Globulin 2.7 Albumin/Globulin Ratio 1.1 08/28/18 08/28/18 06:22 07:48 WBC 10.8 RBC 3.30 L Hgb 10.2 L Hct 30 L MCV 90 MCH 31 MCHC 35 RDW 17 H Plt Count 192 MPV 7.7 Hem Pathologist Commnt Sodium Potassium Chloride Carbon Dioxide Anion Gap BUN Creatinine Est GFR ( Amer) Est GFR (Non-Af Amer) BUN/Creatinine Ratio Glucose POC Glucose (mg/dL) 117 H Calcium Phosphorus Magnesium Total Bilirubin AST ALT Alkaline Phosphatase Total Protein Albumin Globulin Albumin/Globulin Ratio Vital Signs: Temp Pulse Resp BP Pulse Ox 97.4 F 65 20 107/63 99 08/28/18 07:00 08/28/18 07:00 08/28/18 07:00 08/28/18 07:00 08/28/18 07:00 Exam: Gen: 63 yo male who appears mildly lethargic but easily awakens and is in NAD HEENT: MMM Resp: CTA, no w/c/r CV: RRR, no m/r/g Abd: soft, nonTTP Ext: No edema, s/p R distal toe amputation Skin: nodular skin lesions covering R GT and in a linear pattern over medial aspect of leg, no erythema, scan dried blood over toe] Assessment: [This is a 63 yo male with metastatic melanoma s/p recent craniotomy who returned with septic shock and MSSA bacteremia. ] Plan: [1. Septic shock secondary to MSSA bacteremia: improved, out of ICU - cont Ancef - TTE neg for vegetations - blood cx from 08/26 remain positive - repeat blood cx today - needs STEPH to eval for vegetations 2. Metastatic melanoma - initial plan for gammaknife to additional brain lesions, but pt and are not interested in pursuing additional therapy at this time - requested Hospice consult 3. s/p craniotomy - POD #12, repeat brain MRI completed 08/27 looks stable - can complete perioperative keppra tomorrow (08/29) 4. DVT prophylaxis - SQ heparin 5. DNR Dispo: pending STEPH and Hospice consult, doubt that his will be able to care for him at home - look in to hospice residence availability]
--- NOTE | 2018-08-28 13:36 | CONSULT ---
Palliative / Hospice Consult Ordering Provider: Hugo Rangel - PCP-Matthew Referal Reason: goals of care/hospice - Subjective Code Status: DNR Advance Directives Location: In Chart MOLST Part A Completed: Yes - on chart MOLST Part E Completed:: Yes - on chart - History or Present Illness History or Present Illness: 63yo male with stage 4 melanoma with mets to the brain and liver presents to ER with altered mental status. Pt was discharged the day before s/p craniotomy for tumor resection 08/17/2018. PMH is significant for DM insulin dependent, HTN and immune mediated colitis. 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 Studies CXR neg, ekg-nsr, brain CT no new findings, abd/pelvis/chest CT-trace bilateral pleural effusions, 1.3cm precarinal node, ECHO EF 50%, MRI-multiple hemorrhagic mets with associated post surgical changes, H/H 10.2/30, BUN/Cr 25/.58 egfr 141.5, Ca 8.5, Mg 1.5, tprot 5.7, alb 3 and blood cultures showed 4/4 MSSA. All history is from and medical records. 8 months ago pt had biopsy of his great toe under the nail that showed stage 4 melanoma. He has undergone immune therapy and had 2 weeks of diarrhea with subsequent hospitalization for dehydration. As above on 08/17 he had 2 brain lesions removed and was to go to [facility] for gamma knife for other lesions in his brain. Pt was admitted with encephalopathy and septic shock. Lab Values: Abnormal Lab Results 08/27/18 08/27/18 08/28/18 16:05 21:46 05:37 WBC RBC Hgb Hct MCV MCH MCHC RDW Plt Count MPV Sodium 136 Potassium 3.7 Chloride 107 Carbon Dioxide 19 L Anion Gap 10 BUN 25 H Creatinine 0.60 L Est GFR ( Amer) 164.7 Est GFR (Non-Af Amer) 136.1 BUN/Creatinine Ratio 41.7 H Glucose 120 H POC Glucose (mg/dL) 281 H 309 H Calcium 8.6 Phosphorus Magnesium Total Bilirubin 0.60 AST 24 ALT 91 H Alkaline Phosphatase 154 H Total Protein 5.7 L Albumin 3.0 L Globulin 2.7 Albumin/Globulin Ratio 1.1 06/25/19 06/25/19 06/25/19 06:22 06:22 07:48 WBC 10.8 RBC 3.30 L Hgb 10.2 L Hct 30 L MCV 90 MCH 31 MCHC 35 RDW 17 H Plt Count 192 MPV 7.7 Sodium 138 Potassium 3.6 Chloride 105 Carbon Dioxide 24 Anion Gap 9 BUN 25 H Creatinine 0.58 L Est GFR ( Amer) 171.2 Est GFR (Non-Af Amer) 141.5 BUN/Creatinine Ratio 43.1 H Glucose 116 H POC Glucose (mg/dL) 117 H Calcium 8.5 L Phosphorus 3.9 Magnesium 1.5 L Total Bilirubin AST ALT Alkaline Phosphatase Total Protein Albumin Globulin Albumin/Globulin Ratio 08/28/18 12:17 WBC RBC Hgb Hct MCV MCH MCHC RDW Plt Count MPV Sodium Potassium Chloride Carbon Dioxide Anion Gap BUN Creatinine Est GFR ( Amer) Est GFR (Non-Af Amer) BUN/Creatinine Ratio Glucose POC Glucose (mg/dL) 203 H Calcium Phosphorus Magnesium Total Bilirubin AST ALT Alkaline Phosphatase Total Protein Albumin Globulin Albumin/Globulin Ratio Laboratory Last Values WBC 10.8 10^3/uL (3.5-10.8) 08/28/18 06:22 RBC 3.30 10^6 /uL (4.18-5.48) L 08/28/18 06:22 Hgb 10.2 g/dL (14.0-18.0) L 08/28/18 06:22 Hct 30 % (42-52) L 08/28/18 06:22 MCV 90 fL (80-94) 08/28/18 06:22 MCH 31 pg (27-31) 08/28/18 06:22 MCHC 35 g/dL (31-36) 08/28/18 06:22 RDW 17 % (10-15) H 08/28/18 06:22 Plt Count 192 10^3/uL (150-450) 08/28/18 06:22 MPV 7.7 fL (7.4-10.4) 08/28/18 06:22 Neut % (Auto) 85.7 % 08/24/18 10:07 Lymph % (Auto) 8.5 % 08/24/18 10:07 Boyd % (Auto) 5.7 % 08/24/18 10:07 Eos % (Auto) 0.0 % 08/24/18 10:07 Baso % (Auto) 0.1 % 08/24/18 10:07 Absolute Neuts (auto) 35.1 10^3/ul (1.5-7.7) H 08/24/18 10:07 Absolute Lymphs (auto) 3.5 10^3/ul (1.0-4.8) 08/24/18 10:07 Absolute Monos (auto) 2.3 10^3/ul (0-0.8) H 08/24/18 10:07 Absolute Eos (auto) 0.0 10^3/ul (0-0.6) 08/24/18 10:07 Absolute Basos (auto) 0.0 10^3/ul (0-0.2) 08/24/18 10:07 Absolute Nucleated RBC 0.0 10^3/ul 08/24/18 10:07 Immature Gran % 1.0 % (0-9) 08/24/18 10:07 Neutrophils % 84.0 % 08/24/18 10:07 Lymphocytes % 12.0 % 08/24/18 10:07 Monocytes % 3.0 % 08/24/18 10:07 Metamyelocytes % 1.0 % (0-2) 08/24/18 10:07 Nucleated RBC % 0.1 08/24/18 10:07 Normal RBC Morphology Normal (Normal) 08/24/18 10:07 Hem Pathologist Commnt 08/24/18 10:07 ABG pH (7.35-7.45) 08/24/18 13:07 ABG pCO2 Fish Protector 08/24/18 13:07 ABG pO2 Fish Protector 08/24/18 13:07 ABG HCO3 Fish Protector 08/24/18 13:07 ABG O2 Saturation Fish Protector 08/24/18 13:07 ABG Base Excess Fish Protector 08/24/18 13:07 VBG pH 7.39 (7.33-7.43) 08/24/18 13:07 VBG pCO2 28 mmHg (41-51) L 08/24/18 13:07 VBG pO2 < 38 mmHg (35-45) 08/24/18 13:07 VBG HCO3 18.8 mmol/L (24-28) L 08/24/18 13:07 VBG O2 Saturation 62.7 % (70-80) L 08/24/18 13:07 VBG Base Excess -6.6 (0-4) L 08/24/18 13:07 Sodium 138 mmol/L (135-145) 08/28/18 06:22 Potassium 3.6 mmol/L (3.5-5.0) 08/28/18 06:22 Chloride 105 mmol/L (101-111) 08/28/18 06:22 Carbon Dioxide 24 mmol/L (22-32) 08/28/18 06:22 Anion Gap 9 mmol/L (2-11) 08/28/18 06:22 BUN 25 mg/dL (6-24) H 08/28/18 06:22 Creatinine 0.58 mg/dL (0.67-1.17) L 08/28/18 06:22 Est GFR ( Amer) 171.2 (>60) 08/28/18 06:22 Est GFR (Non-Af Amer) 141.5 (>60) 08/28/18 06:22 BUN/Creatinine Ratio 43.1 (8-20) H 08/28/18 06:22 Glucose 116 mg/dL (70-100) H 08/28/18 06:22 POC Glucose (mg/dL) 203 mg/dL (70-100) H 08/28/18 12:17 Lactic Acid 1.1 mmol/L (0.5-2.0) 08/25/18 04:11 Calcium 8.5 mg/dL (8.6-10.3) L 08/28/18 06:22 Phosphorus 3.9 mg/dL (2.5-5.0) 08/28/18 06:22 Magnesium 1.5 mg/dL (1.9-2.7) L 08/28/18 06:22 Total Bilirubin 0.60 mg/dL (0.2-1.0) 08/28/18 05:37 Direct Bilirubin 0.10 mg/dL (0.03-0.18) 08/27/18 06:50 Indirect Bilirubin 0.5 mg/dL (0.3-1.0) 08/27/18 06:50 AST 24 U/L (13-39) 08/28/18 05:37 ALT 91 U/L (7-52) H 08/28/18 05:37 Alkaline Phosphatase 154 U/L (34-104) H 08/28/18 05:37 Ammonia 36 mcmol/L (16-53) 08/24/18 20:30 Total Creatine Kinase 690 U/L (10-223) H 08/26/18 05:18 Troponin I 0.56 ng/mL (<0.04) H* 08/26/18 05:18 B-Natriuretic Peptide 89 pg/mL (<=100) 08/26/18 05:18 Total Protein 5.7 g/dL (6.4-8.9) L 08/28/18 05:37 Albumin 3.0 g/dL (3.2-5.2) L 08/28/18 05:37 Globulin 2.7 g/dL (2-4) 08/28/18 05:37 Albumin/Globulin Ratio 1.1 (1-3) 08/28/18 05:37 TSH 8.29 mcIU/mL (0.34-5.60) H 08/24/18 10:07 Urine Color Yellow 08/24/18 13:41 Urine Appearance Clear 08/24/18 13:41 Urine pH 5.0 (5-9) 08/24/18 13:41 Ur Specific Venus 1.012 (1.010-1.030) 08/24/18 13:41 Urine Protein Negative (Negative) 08/24/18 13:41 Urine Ketones Negative (Negative) 08/24/18 13:41 Urine Blood 1+ (Negative) A 08/24/18 13:41 Urine Nitrate Negative (Negative) 08/24/18 13:41 Urine Bilirubin Negative (Negative) 08/24/18 13:41 Urine Urobilinogen Negative (Negative) 08/24/18 13:41 Ur Leukocyte Esterase Negative (Negative) 08/24/18 13:41 Urine WBC (Auto) Trace(0-5/hpf) (Absent) 08/24/18 13:41 Urine RBC (Auto) Trace(0-2/hpf) (Absent) 08/24/18 13:41 Urine Bacteria 2+ (Absent) A 08/24/18 13:41 Hyaline Casts Present (Absent) A 08/24/18 13:41 Urine Glucose 3+(>=500 mg/dl) (Negative) A 08/24/18 13:41 Urine Opiates Screen None detected (None Detect) 08/24/18 13:41 Acetaminophen < 15 mcg/mL 08/24/18 10:07 Ur Barbiturates Screen None detected (None Detect) 08/24/18 13:41 Levetiracetam 2.4 mcg/mL L 08/24/18 09:47 Ur Phencyclidine Scrn None detected (None Detect) 08/24/18 13:41 Ur Amphetamines Screen None detected (None Detect) 08/24/18 13:41 U Benzodiazepines Scrn None detected (None Detect) 08/24/18 13:41 Urine Cocaine Screen None detected (None Detect) 08/24/18 13:41 U Cannabinoids Screen None detected (None Detect) 08/24/18 13:41 Serum Alcohol < 10 mg/dL (<10) 08/24/18 10:07 - Objective Active Medications: Acetaminophen (Tylenol Tab*) 650 mg PO Q4H PRN PRN Reason: FEVER/PAIN Dexamethasone Sodium Phosphate (Decadron Iv*) 4 mg IV SLOW PU Q8HR [facility] Last Admin: 08/28/18 06:37 Dose: 4 mg Dextrose (D50w Syringe 50 Ml*) 12.5 gm IV PUSH .FOR FS < 60 - SS PRN PRN Reason: FS < 60 Hydromorphone HCl (Dilaudid Inj*) 0.5 mg IV SLOW PU ONCE PRN PRN Reason: PAIN Levetiracetam (Keppra Iv Premix*) 500 mg in 100 mls @ 400 mls/hr IV Q12H [facility] Last Admin: 08/28/18 12:55 Dose: 400 mls/hr Cefazolin Sodium 2 gm/ Sodium (Chloride) 100 mls @ 200 mls/hr IVPB Q8H [facility] Last Admin: 08/28/18 06:37 Dose: 200 mls/hr Sodium Chloride (Ns 0.9% 1000 Ml) 1,000 mls @ 50 mls/hr IV PER RATE [facility] Last Admin: 08/27/18 22:01 Dose: 50 mls/hr Insulin Glargine (Lantus(*)) 55 units SUBCUT Q24H [facility] Last Admin: 08/27/18 15:58 Dose: 55 units Insulin Human Lispro (Humalog*) 0 units SUBCUT ACHS [facility]; Protocol Last Admin: 08/28/18 12:55 Dose: 6 units Ondansetron HCl (Zofran Inj*) 4 mg IV Q4H PRN PRN Reason: NAUSEA/VOMITING Ramipril (Altace Cap*) 10 mg PO DAILY [facility] Last Admin: 08/28/18 09:23 Dose: 10 mg Vital Signs: Vital Signs: Temp Pulse Resp BP Pulse Ox 98.0 F 70 20 104/63 97 08/28/18 12:25 08/28/18 12:25 08/28/18 12:25 08/28/18 12:25 08/28/18 12:25 Patient Weight: Weight 82.9 kg Intake and Output: Intake & Output 08/26/18 08/27/18 08/28/18 08/29/18 06:59 06:59 06:59 06:59 Intake Total 2139 1040 840 Output Total 2957 450 2815 Balance -818 590 -1974 Weight 82.9 kg 82.9 kg Intake: IV Fluids 1864 NS (0.9%) 1864 IVPB 275 ABX - CEFEPIME 63 Keppra 212 Oral 1040 840 Output: Urine 350 2815 Santana 2957 100 Other: Estimated Void Large Medium Date of Last Bowel unknown Movement # Bowel Movements 1 0 Estimated Stool Amount Large Large # Voids 1 1 ADLs: Meal Record Start: 08/24/18 13: 18 Freq: 09,13,18 Status: Inactive Protocol: Created 08/24/18 13:18 System (Rec: 08/24/18 13:18 System ICU-C12) Document 08/25/18 09:00 [id number] (Rec: 08/25/18 11:35 [id number] ICU-C11) Document 08/25/18 13:00 [id number] (Rec: 08/25/18 19:46 FYJ1033 ICU-C10) Document 08/25/18 18:00 [id number] (Rec: 08/25/18 19:46 [id number] ICU-C10) Document 08/26/18 09:00 KRZ2645 (Rec: 08/26/18 11:57 [id number] ICU-C20) ADLs: Meal Record Start: 08/26/18 13: 53 Freq: DAILY@0900,1400,1800 Status: Active Protocol: Created 08/26/18 13:53 [id number] (Rec: 08/26/18 13:53 [id number] ICU-C16) Document 08/26/18 18:00 GXF1935 (Rec: 08/26/18 20:48 IIE1682 MED-C14) Document 08/27/18 14:00 GJG5567 (Rec: 08/27/18 17:28 RXI6805 MED-C16) Document 08/27/18 18:00 RHX4398 (Rec: 08/27/18 18:40 [id number] MED-C04) Intake and Output Start: 08/24/18 09: 56 Freq: Status: Active Protocol: Created 08/24/18 09:56 System (Rec: 08/24/18 09:56 System [id number]) Intake and Output Start: 08/24/18 13: 18 Freq: Q1HR Status: Inactive Protocol: Created 08/24/18 13:18 System (Rec: 08/24/18 13:18 System ICU-C12) Document 08/24/18 15:45 [id number] (Rec: 08/24/18 15:45 [id number] ICU-C12) Document 08/24/18 18:53 [id number] (Rec: 08/24/18 18:54 KWX8971 ICU-M35) Document 08/24/18 19:00 GYU1961 (Rec: 08/24/18 19:26 [id number] ICU-M35) Document 08/24/18 20:00 MQB5904 (Rec: 08/24/18 20:51 [id number] ICU-C10) Document 08/24/18 21:00 MKN0613 (Rec: 08/24/18 21:36 [id number] ICU-C10) Document 08/24/18 22:00 VEW6230 (Rec: 08/24/18 22:13 CXQ5020 ICU-C10) Document 08/24/18 23:00 AVQ0603 (Rec: 08/24/18 23:07 CBF9526 ICU-C10) Document 08/25/18 00:00 LXE2088 (Rec: 08/25/18 00:14 NHS0545 ICU-C10) Document 08/25/18 01:00 PJU9088 (Rec: 08/25/18 01:33 SKL0091 ICU-M35) Document 08/25/18 02:00 JTH2787 (Rec: 08/25/18 02:38 KBH5628 ICU-C10) Document 08/25/18 03:00 MYY3765 (Rec: 08/25/18 03:26 VBH9386 ICU-C10) Document 08/25/18 04:00 KFE3694 (Rec: 08/25/18 04:12 NHZ0306 ICU-M35) Document 08/25/18 05:00 PTD0273 (Rec: 08/25/18 05:49 VEB6796 ICU-M35) Document 08/25/18 06:00 QHG6827 (Rec: 08/25/18 06:26 BAY0614 ICU-C16) Document 08/25/18 07:00 QVE6998 (Rec: 08/25/18 11:15 FYX1266 ICU-C11) Document 08/25/18 08:00 RQT2079 (Rec: 08/25/18 11:15 RZX8143 ICU-C11) Document 08/25/18 09:00 UIR6401 (Rec: 08/25/18 11:19 JLU8382 ICU-C11) Document 08/25/18 10:00 EXD0444 (Rec: 08/25/18 11:19 LRQ0220 ICU-C11) Document 08/25/18 11:00 NYP2292 (Rec: 08/25/18 11:19 PNT6975 ICU-C11) Document 08/25/18 12:00 ELU6245 (Rec: 08/25/18 20:38 XSU1378 ICU-C22) Document 08/25/18 13:00 NJI2470 (Rec: 08/25/18 20:38 [id number] ICU-C22) Document 08/25/18 14:00 GDB9497 (Rec: 08/25/18 20:38 XAJ6749 ICU-C22) Document 08/25/18 15:00 IRL9778 (Rec: 08/25/18 20:38 SZB2448 ICU-C22) Document 08/25/18 16:00 YHH4669 (Rec: 08/25/18 20:38 ZFB5118 ICU-C22) Document 08/25/18 17:00 IRN4016 (Rec: 08/25/18 20:38 IOD5685 ICU-C22) Document 08/25/18 18:00 EWA8556 (Rec: 08/25/18 20:38 UGB9901 ICU-C22) Document 08/25/18 19:00 ENF4692 (Rec: 08/25/18 20:49 WMK6192 ICU-C10) Document 08/25/18 20:00 YMV3628 (Rec: 08/25/18 20:49 DXJ6637 ICU-C10) Document 08/25/18 21:00 IHC1475 (Rec: 08/25/18 21:20 RYY6548 ICU-C10) Document 08/25/18 22:00 QWP0934 (Rec: 08/25/18 22:25 GRP6113 ICU-C10) Document 08/25/18 23:00 LIE5704 (Rec: 08/25/18 23:20 DUI7250 ICU-C10) Document 08/26/18 00:00 WLH0250 (Rec: 08/26/18 00:48 [id number] ICU-C10) Document 08/26/18 01:00 JCH9710 (Rec: 08/26/18 01:09 PZF2391 ICU-C10) Document 08/26/18 02:00 PIG4656 (Rec: 08/26/18 02:12 LWN3933 ICU-C10) Document 08/26/18 03:00 MLE7636 (Rec: 08/26/18 03:13 SJH6448 ICU-C10) Document 08/26/18 04:00 GXL1926 (Rec: 08/26/18 04:08 DIA5544 ICU-C10) Document 08/26/18 05:00 LYH5727 (Rec: 08/26/18 05:21 NNG2033 ICU-M35) Document 08/26/18 06:00 KQE0496 (Rec: 08/26/18 06:20 DHQ2062 ICU-M35) Document 08/26/18 08:00 PHQ8094 (Rec: 08/26/18 09:00 CGO5875 ICU-C16) Document 08/26/18 11:00 TOQ1986 (Rec: 08/26/18 11:52 WGE4622 ICU-C16) Intake and Output Start: 08/26/18 13: 53 Freq: DAILY@0600,1400,2200 Status: Active Protocol: Created 08/26/18 13:53 GIW3541 (Rec: 08/26/18 13:53 FXY9710 ICU-C16) Document 08/26/18 21:49 XKP0166 (Rec: 08/26/18 21:49 QJE1308 MED-C14) Document 08/27/18 04:50 QUG5973 (Rec: 08/27/18 04:51 OZV4384 MED-C11) Document 08/27/18 14:00 WKC1015 (Rec: 08/27/18 18:16 HOM5679 MED-C04) Document 08/27/18 22:00 IWP4656 (Rec: 08/27/18 22:35 TZY0209 MED-C11) Document 08/28/18 05:50 [id number] (Rec: 08/28/18 05:50 [id number] MED-C11) Eyes: No Scleral Icterus Ears/Nose/Mouth/Throat: NL Teeth, Lips, Gums Neck: NL Appearance and Movements; NL JVP Cardiovascular: NL Sounds; No Murmurs; No JVD Respiratory: Clear to Auscultation Abdominal: NL Sounds; No Tenderness; No Distention - Assessment Assessment: 63yo male with stage 4 melanoma with mets to the brain and liver now with bacteremia and sepsis eligible for hospice - Plan Consult Plan (MU): Hospice Plan: Long discussion with about 's goals of care. Pt would like to be at home and can care for him with help if pt is able to stand and pivot to use commode. Prior to recent hospitalization he took care of all his ADLs. She will not be able to care for him if he is bedridden. We discussed benefits/ information about hospice and a brochure was given. She is interested in home hospice for now and if things get worse she would like the residence. She doesn' t want him to suffer and in the past he has stated that if he can't care for himself then he wouldn't want to be alive. They will need a hospital bed and commode. Hospice eligible with diagnosis of stage 4 melanoma. KPS 40% PPS 40% - Time On Unit Date of Evaluation: 08/28/18 Hospice Consult Time in: 11:30 Hospice Consult Time Out: 13:00 Hospice Consult Time Total: 90 > 50% of Time Spend In Counseling or Coordinating Care: Yes
[2018-08-28] MEDS: Insulin GLARGINE(*) 1 UNITS UNIT SUBCUT SCH (17:43)
[2018-08-28] MEDS: NS 0.9% 1000 ML** 1,000 ML IV SCH (19:51)
[2018-08-29] MEDS: levETIRAcetam 500 MG IVPREMIX* 500 MG/100 ML BAG IV SCH ×2 (00:21→17:07)
[2018-08-29] MEDS: Dexamethasone IV* 4 MG/ML 1 ML (4 MG) IV SLOW PU SCH ×3 (06:28→23:23)
[2018-08-29] MEDS: ceFAZolin VIAL(*) 2 GM in NS 0.9% 100 ML* 100 ML IVPB SCH ×3 (06:30→22:35)
[2018-08-29 07:15] LABS: Hematocrit 31 % (42-52); Hemoglobin 11.1 g/dL (14.0-18.0); Mean Corpuscular HGB Conc 35 g/dL (31-36); Mean Corpuscular Hemoglobin 31 pg (27-31); Mean Corpuscular Volume 89 fL (80-94); Mean Platelet Volume 7.2 fL (7.4-10.4); Platelet Count 227 10^3/uL (150-450); Red Blood Count 3.53 10^6 /uL (4.18-5.48); Red Cell Distribution Width 17 % (10-15); White Blood Count 12.7 10^3/uL (3.5-10.8)
[2018-08-29 07:30] LABS: BUN/Creatinine Ratio 34.5 (8-20); Calcium 8.6 mg/dL (8.6-10.3); EGFR African American 171.2 (>60); EGFR Non-African American 141.5 (>60); Magnesium 1.6 mg/dL (1.9-2.7); Phosphorus 3.2 mg/dL (2.5-5.0); Potassium 3.8 mmol/L (3.5-5.0)
[2018-08-29] MEDS: Insulin LISPRO* 1 UNITS UNIT SUBCUT SCH ×4 (08:20→23:28)
[2018-08-29] MEDS: Ramipril CAP* 10 MG PO SCH (08:20)
[2018-08-29] MEDS ORDERED: Magnesium Sulf 4 GM/100 ML IV* 4,000 MG/100 ML BAG IVPB ONE (09:30)
--- NOTE | 2018-08-29 10:02 | PN ---
Progress Note - Progress Note Date of Service: 08/29/18 SOAP: Subjective: [No changes overnight. STEPH pending for today.] Objective: [ Laboratory Results - last 24 hr 08/28/18 08/28/18 08/28/18 12:17 16:40 22:03 WBC RBC Hgb Hct MCV MCH MCHC RDW Plt Count MPV Sodium Potassium Chloride Carbon Dioxide Anion Gap BUN Creatinine Est GFR ( Amer) Est GFR (Non-Af Amer) BUN/Creatinine Ratio Glucose POC Glucose (mg/dL) 203 H 248 H 391 H Calcium Phosphorus Magnesium 08/29/18 08/29/18 08/29/18 06:35 06:35 07:42 WBC 12.7 H RBC 3.53 L Hgb 11.1 L Hct 31 L MCV 89 MCH 31 MCHC 35 RDW 17 H Plt Count 227 MPV 7.2 L Sodium 136 Potassium 3.8 Chloride 103 Carbon Dioxide 25 Anion Gap 8 BUN 20 Creatinine 0.58 L Est GFR ( Amer) 171.2 Est GFR (Non-Af Amer) 141.5 BUN/Creatinine Ratio 34.5 H Glucose 215 H POC Glucose (mg/dL) 141 H Calcium 8.6 Phosphorus 3.2 Magnesium 1.6 L Acetaminophen (Tylenol Tab*) 650 mg PO Q4H PRN PRN Reason: FEVER/PAIN Dexamethasone Sodium Phosphate (Decadron Iv*) 4 mg IV SLOW PU Q8HR [facility] Last Admin: 08/29/18 06:28 Dose: 4 mg Dextrose (D50w Syringe 50 Ml*) 12.5 gm IV PUSH .FOR FS < 60 - SS PRN PRN Reason: FS < 60 Hydromorphone HCl (Dilaudid Inj*) 0.5 mg IV SLOW PU ONCE PRN PRN Reason: PAIN Levetiracetam (Keppra Iv Premix*) 500 mg in 100 mls @ 400 mls/hr IV Q12H [facility] Stop: 08/29/18 23:59 Last Admin: 08/29/18 00:21 Dose: 400 mls/hr Cefazolin Sodium 2 gm/ Sodium (Chloride) 100 mls @ 200 mls/hr IVPB Q8H [facility] Last Admin: 08/29/18 06:30 Dose: 200 mls/hr Sodium Chloride (Ns 0.9% 1000 Ml) 1,000 mls @ 50 mls/hr IV PER RATE [facility] Last Admin: 08/28/18 19:51 Dose: 50 mls/hr Magnesium Sulfate (Magnesium Sulf 4 Gm/100 Ml Iv*) 4,000 mg in 100 mls @ 33.333 mls/hr IVPB ONCE ONE Stop: 08/29/18 12:29 Insulin Glargine (Lantus(*)) 55 units SUBCUT Q24H [facility] Last Admin: 08/28/18 17:43 Dose: 55 units Insulin Human Lispro (Humalog*) 0 units SUBCUT ACHS [facility]; Protocol Last Admin: 08/29/18 08:20 Dose: 2 units Ondansetron HCl (Zofran Inj*) 4 mg IV Q4H PRN PRN Reason: NAUSEA/VOMITING Ramipril (Altace Cap*) 10 mg PO DAILY [facility] Last Admin: 08/29/18 08:20 Dose: 10 mg Vital Signs: Temp Pulse Resp BP Pulse Ox 97.6 F 62 16 123/74 99 08/29/18 07:37 08/29/18 07:37 08/29/18 07:37 08/29/18 07:37 08/29/18 07:37 Exam: Gen: 63 yo male who appears mildly lethargic but easily awakens and is in NAD HEENT: MMM Resp: CTA, no w/c/r CV: RRR, no m/r/g Abd: soft, nonTTP Ext: No edema, s/p R distal toe amputation Skin: nodular skin lesions covering R GT and in a linear pattern over medial aspect of leg, no erythema, scan dried blood over toe] Assessment: [This is a 63 yo male with metastatic melanoma s/p recent craniotomy who returned with septic shock and MSSA bacteremia. ] Plan: [1. Septic shock secondary to MSSA bacteremia: improved, out of ICU - cont Ancef - TTE neg for vegetations - blood cx from 08/26 remain positive - repeat blood cx yesterday are still pending - needs STEPH to eval for vegetations, pending for later today 2. Metastatic melanoma - initial plan for gammaknife to additional brain lesions, but pt and are not interested in pursuing additional therapy at this time - Hospice consult yesterday - plan for home v residence services 3. s/p craniotomy - POD #13, repeat brain MRI completed 08/27 looks stable - can complete perioperative keppra today (08/29) 4. DVT prophylaxis - SQ heparin 5. DNR Dispo: pending STEPH, if positive will treat for endocarditis - if negative can switch to oral abx when blood cx clear. Tentative residence bed availability for Monday, will review with once STEPH results are available
[2018-08-29] MEDS ORDERED: Naloxone* 0.4 MG/ML 1 ML VIAL ONE (13:31)
[2018-08-29] MEDS ORDERED: Midazolam* 1 MG/ML 5 ML VIAL (5 MG) ONE (13:31)
[2018-08-29] MEDS ORDERED: fentaNYL* 50 MCG/ML 2 ML VIAL (100 MCG VIAL) ONE (13:31)
[2018-08-29] MEDS ORDERED: Flumazenil* 0.1 MG/ML 5 ML MDV ONE (13:31)
[2018-08-29] MEDS ORDERED: Lidocaine 2% VISCOUS* 15 ML UDC ONE (13:31)
[2018-08-29] MEDS: Insulin GLARGINE(*) 1 UNITS UNIT SUBCUT SCH (17:07)
--- NOTE | 2018-08-29 20:28 | TEE ---
*[facility]* [place] [address] Fax #: [phone] Transesophageal Echocardiogram Patient: Enrrique Roman : 1955 Study Date: 08/29/2018 Age: 63 Gender: M HR: 74 bpm Height: 70 in /177.8 cm Weight: 181.6 lb /82.6 kg BMI/BSA: 26.1 kg/m^2 2.01 m^2 HR: 74 bpm *Drop Machine Operator: * Rosi Malik [facility] *Referring Physician: * Robert Whalen *Reading Physician: * Ruma Gonzalez MD Indications: Bacteremia. History: Metastatic melanoma. Risk factors: Hypertension. Diabetes mellitus. Conclusions Summary: 1. Left ventricle: Systolic function is normal. The estimated ejection fraction is 50-55%. 2. Right ventricle: Systolic function is normal. 3. Right atrium: There is the appearance of a prominent Chiari network. 4. Mitral valve: There is no evidence of a vegetation. There is trace regurgitation. 5. Aortic valve: Mild focal thickening and prolapse involving the right coronary cusp. Cannot exclude a vegetation. There is mild regurgitation. 6. Tricuspid valve: There is no evidence of a vegetation. There is trace regurgitation. 7. Pulmonic valve: There is no evidence of a vegetation. Study data: Diagnostic Transesophageal Echocardiogram Consent: The risks and benefits of the procedure, including alternatives were discussed with the patient and/or their health care franchise sales representative and written informed consent was obtained. Procedure: Initial setup: The patient was brought to the laboratory in the fasting state.Intravenous access was obtained. Surface ECG leads, heart rate, heart rhythm, blood pressure measurements, pulse oximetric signals, and mainstream end-tidal CO2 tracings were monitored throughout the procedure. Sedation. Moderate sedation was administered by nursing staff. History and physical as well as labs were reviewed. An oral bite block was inserted for protection of oral dentition. The patient was placed in the left lateral decubitus position. Topical anesthesia was obtained using viscous lidocaine. A transesophageal probe was inserted by the attending landscape engineer. Transesophageal echocardiography was performed, image quality was good, and all standard views were attempted within the limitations of patient tolerance and safety. Multiple 2D, color flow Doppler and spectral Doppler images were obtained. The transesophageal probe was removed. A bubble study was performed. Image 73. Location: Procedure room. Patient status: Inpatient. Patient room number: 408. Study completion: The patient tolerated the procedure well. There were no complications. Administered medications: Midazolam, 5mg. Fentanyl, 25mcg. Rhythm: Normal sinus rhythm. Findings Left ventricle: The cavity size is normal. Wall thickness is mildly increased. Systolic function is normal. The estimated ejection fraction is 50-55%. Wall motion is normal; there are no regional wall motion abnormalities. Right ventricle: The cavity size is normal. Systolic function is normal. Left atrium: The atrium is normal in size. Emptying velocity of left atrium appendage is normal. There is no evidence of a thrombus in the atrial cavity or appendage. Right atrium: The atrium is normal in size. There is the appearance of a prominent Chiari network. Atrial septum: A PFO is not demonstrated by color Doppler or agitated saline contrast. Mitral valve: The leaflets are normal thickness. There is no evidence of a vegetation. There is no evidence of stenosis. There is trace regurgitation. Aortic valve: The valve is trileaflet. The NCC and LCC leaflets are normal thickness. Mild focal thickening and prolapse involving the right coronary cusp. Cannot exclude a vegetation. See image 50. There is mild regurgitation. Tricuspid valve: The leaflets are normal thickness. There is no evidence of a vegetation. There is no evidence of stenosis. There is trace regurgitation. Pulmonic valve: The leaflets are normal thickness. There is no evidence of a vegetation. There is no evidence of stenosis. There is no significant regurgitation. Aorta: Aortic root: The aortic root appears normal and has mild plaque. Ascending aorta: The ascending aorta appears normal. Aortic arch: The aortic arch appears normal and calcified. Pericardium: There is no significant pericardial effusion. Pulmonary arteries: The main pulmonary artery is normal-sized. Systemic veins: Inferior vena cava: The vessel is appears normal. Superior vena cava: The vessel is appears normal. A catheter is observed within the superior vena cava. Pulmonary veins: The flow of the pulmonary veins appears normal. Measurements Aortic valve Value 08/26/2018 Ref Aortic root Value 08/26/2018 Ref Evangelina diam, ED 2.1 cm 2.4 ---- Root diam 3.4 cm 3.6 <4.1 Mitral valve Value 08/26/2018 Ref Ascending aorta Value 08/26/2018 Ref Peak E 0.66 m/sec 0.91 ---- AAo AP diam, S 3.2 cm ---- Peak A 0.72 m/sec 0.55 ---- Decel time 166 ms 193 ---- Peak E/A ratio 0.9 1.7 ---- Legend: (L) and (H) soha values outside specified reference range. Prepared and electronically signed by Ruma Gonzalez MD 08/29/2018 20:28
[2018-08-29] MEDS: NS 0.9% 1000 ML** 1,000 ML IV SCH (22:34)
[2018-08-29] MEDS ORDERED: Insulin LISPRO* 1 UNITS UNIT SUBCUT ONE (22:59)
[2018-08-30] MEDS: Dexamethasone IV* 4 MG/ML 1 ML (4 MG) IV SLOW PU SCH ×3 (05:59→21:35)
[2018-08-30] MEDS: ceFAZolin VIAL(*) 2 GM in NS 0.9% 100 ML* 100 ML IVPB SCH ×3 (05:59→21:41)
[2018-08-30 06:12] LABS: Hematocrit 32 % (42-52); Mean Corpuscular HGB Conc 35 g/dL (31-36); Mean Corpuscular Hemoglobin 31 pg (27-31); Mean Corpuscular Volume 90 fL (80-94); Mean Platelet Volume 6.8 fL (7.4-10.4); Platelet Count 251 10^3/uL (150-450); Red Blood Count 3.56 10^6 /uL (4.18-5.48); Red Cell Distribution Width 17 % (10-15); White Blood Count 15.7 10^3/uL (3.5-10.8)
[2018-08-30 06:32] LABS: BUN/Creatinine Ratio 40.7 (8-20); Calcium 8.4 mg/dL (8.6-10.3); EGFR African American 167.9 (>60); EGFR Non-African American 138.7 (>60); Potassium 4.2 mmol/L (3.5-5.0)
[2018-08-30] MEDS: Insulin LISPRO* 1 UNITS UNIT SUBCUT SCH ×4 (10:10→21:35)
[2018-08-30] MEDS: Ramipril CAP* 10 MG PO SCH (10:10)
--- NOTE | 2018-08-30 12:47 | PN ---
Progress Note - Progress Note Date of Service: 08/30/18 SOAP: Subjective: []Cultures remain positive despite appropriate coverage for MSSA. STEPH yesterday can not exclude vegetation on aortic valve. wants to get Enrrique home. Enrrique denies pain and discomfort, states he wants to go home. not clear on current state of cancer and recommendations for care. Medications: Acetaminophen (Tylenol Tab*) 650 mg PO Q4H PRN PRN Reason: FEVER/PAIN Dexamethasone Sodium Phosphate (Decadron Iv*) 4 mg IV SLOW PU Q8HR [facility] Last Admin: 08/30/18 05:59 Dose: 4 mg Dextrose (D50w Syringe 50 Ml*) 12.5 gm IV PUSH .FOR FS < 60 - SS PRN PRN Reason: FS < 60 Hydromorphone HCl (Dilaudid Inj*) 0.5 mg IV SLOW PU ONCE PRN PRN Reason: PAIN Cefazolin Sodium 2 gm/ Sodium (Chloride) 100 mls @ 200 mls/hr IVPB Q8H [facility] Last Admin: 08/30/18 05:59 Dose: 200 mls/hr Sodium Chloride (Ns 0.9% 1000 Ml) 1,000 mls @ 50 mls/hr IV PER RATE [facility] Last Admin: 08/29/18 22:34 Dose: 50 mls/hr Insulin Glargine (Lantus(*)) 55 units SUBCUT Q24H [facility] Last Admin: 08/29/18 17:07 Dose: 55 units Insulin Human Lispro (Humalog*) 0 units SUBCUT ACHS [facility]; Protocol Last Admin: 08/30/18 10:10 Dose: 9 units Ondansetron HCl (Zofran Inj*) 4 mg IV Q4H PRN PRN Reason: NAUSEA/VOMITING Ramipril (Altace Cap*) 10 mg PO DAILY [facility] Last Admin: 08/30/18 10:10 Dose: 10 mg Objective: [] Vital Signs Temp Pulse Resp BP Pulse Ox 97.5 F 93 19 94/68 98 08/30/18 03:32 08/30/18 03:32 08/30/18 03:32 08/30/18 03:32 08/30/18 03:32 A&O conversing easily, neuro grossly non-focal HRR, S1S2 LS clear Craniotomy site benign, well approximated Right great toe with ulcerating melanoma and multiple intransient sites Laboratory Results - last 24 hr 08/29/18 08/29/18 08/29/18 11:46 17:08 21:55 WBC RBC Hgb Hct MCV MCH MCHC RDW Plt Count MPV Sodium Potassium Chloride Carbon Dioxide Anion Gap BUN Creatinine Est GFR ( Amer) Est GFR (Non-Af Amer) BUN/Creatinine Ratio Glucose POC Glucose (mg/dL) 164 H 158 H 407 H* Glucose Meter Confirm Calcium 08/29/18 08/30/18 08/30/18 22:09 05:50 05:50 WBC 15.7 H RBC 3.56 L Hgb 11.0 L Hct 32 L MCV 90 MCH 31 MCHC 35 RDW 17 H Plt Count 251 MPV 6.8 L Sodium 134 L Potassium 4.2 Chloride 101 Carbon Dioxide 25 Anion Gap 8 BUN 24 Creatinine 0.59 L Est GFR ( Amer) 167.9 Est GFR (Non-Af Amer) 138.7 BUN/Creatinine Ratio 40.7 H Glucose 215 H POC Glucose (mg/dL) Glucose Meter Confirm 405 H Calcium 8.4 L Assessment: []63 yo male with metastatic melanoma found recently to have multiple brain mets now s/p resection of frontal lobe lesion. Course complicated by MSSA bacteremia with source unclear. He potentially has an endocarditis which would require 6-8 weeks of IV abx., however he is currently not considered a candidate for further therapy of his melanoma and therefore his prognosis is likely approx. 3 mo. I discussed with this with Enrrique and his , Josr, at length. I have recommended a consultation with Infectious disease to evaluate the true benefit of abx. versus home with hospice. Plan: []1. MSSA Bacteremia: he has not cleared his culture increasing suspicion for vegetation at the aortic valve - IJ line placed on admission (when he was positive), however may be reasonable to d/c and use peripheral lines - no other implants that pt. or is aware of - craniotomy site apepars benign 2. Melanoma: no further tx. receommended, suggest transition to hospice though may want a course of abx. - wants to take him home therefore we will ask PT to assess DNR Dispo: goal of home, dependent on recommendation for abx., +/- hospice
[2018-08-30] MEDS: Insulin GLARGINE(*) 1 UNITS UNIT SUBCUT SCH (17:58)
--- NOTE | 2018-08-30 20:19 | CONS ---
CONSULTATION REPORT: DATE OF CONSULT: 08/30/18 PRIMARY CARE PROVIDER: Dr. Lg Castro. PRIMARY ONCOLOGIST: Dr. Hugo Rangel. PROVIDER REQUESTING CONSULTATION: Khushbu Bennett NP CONSULTING SERVICE: Infectious Disease. ATTENDING PROVIDER: Dr. Dandre Mccall * (dictated by Meredith Ch NP) REASON FOR CONSULTATION: Staph aureus bacteremia. IMPRESSION: 1. Staphylococcus aureus bacteremia. Unclear source at this time. He does not have a PowerPort or PICC line. Central line was placed during this admission. Past IV sites on his arms do not appear to be infected or any signs of phlebitis. He denies prosthetic materials being present. No overt signs of endocarditis on transthoracic echocardiogram or transesophageal echocardiogram. Urine culture with no growth. He has no pacemaker, artificial heart valve, or ICD. No signs of septic arthritis. No tenderness with palpation of the back or spine. He continues to have leukocytosis. He has been afebrile. He has been on cefazolin 2 g IV for 8 hours for 4 days. 2. Melanoma. The wishes no further treatment and would like to transition to hospice, but is willing to consider a course of antibiotics. 3. Diabetes mellitus, type 2. RECOMMENDATIONS: Recommend continuing cephazolin 2 g IV every 8 hours while the patient is in the hospital. He can be transitioned to an oral antibiotic at discharge, as he wishes to go on hospice and is unable to sign on to hospice while on IV antibiotics. Further recommendations will be made based on the patient's clinical course. HISTORY OF PRESENT ILLNESS: Mr. 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 He underwent craniotomy and resection of the right frontal tumor by Dr. Marroquin. According to his admitting H and P, he had recovered nicely from the craniotomy with mild lethargy and intermittent episodes of confusion, but was ambulating independently at the time of discharge. According to his on the car ride home, he seemed to be confused and took the dressing off of his head. When they got home, he was able to ascend the stairs into the house. Shortly thereafter, he got up and started to walk. When she asked what he was doing, he said he was going out and she accompanied him to the front porch where he stood on the front porch and was incontinent of urine. She was able to get him back in to the house and he fell asleep. He spent the rest of the day sleeping. She attempted to transfer him to bed for the evening; she was unable to and he spent the night sleeping in his chair. The next morning, she attempted to wake him and he was unable to communicate or follow commands, at which point she called 911 and he was brought to the emergency room for further evaluation. While in the emergency room, he was noted to be hypotensive and hypoxic. He had some minimal improvement in his hypotension with fluid boluses. He was afebrile, able to answer a few questions. He had urinalysis showing 2+ bacteria , 1+ blood. He had a CT of his brain showing multiple hemorrhagic metastatic lesions without significant interval change compared to the previous CT from . There also noted to be a 2 mm shift from right to left without significant change. He had a chest x-ray showing no acute disease. A CT of his chest, abdomen, and pelvis without contrast showing no acute disease. A chest x-ray post central line insertion showing good position. He was admitted to the hospital for severe sepsis with refractory hypotension and septic shock. While in the hospital, he was seen in consultation by Dr. Jacques with the cylinder loader service. Blood cultures were obtained. He was started on cefepime while they waited for culture results. He was also noted to have an acute kidney injury. Transaminitis was suspected to be secondary to shock. He was started on IV Decadron for cerebral edema. Initially, required Levophed, but this was able to be weaned. He also received empiric dose of vancomycin. Initial blood cultures drawn in the emergency room, returned with 4/4 bottles positive for Staph aureus. He underwent a transthoracic echocardiogram on 08/25 showing no valvular abnormalities. His urine culture had no growth. He had a repeat brain MRI on 08/27/18 showing hemorrhagic metastasis with associated postsurgical change similar to previous exam. He continued to have persistent Staph aureus bacteremia. Initially, he was on cefepime and changed to cefazolin. He underwent a transesophageal echocardiogram, this showed a mild focal thickening and prolapse involving the right coronary cusp, unable to exclude vegetation. There was no other vegetation seen on any of the other valves. After discussion with Cardiology, they felt that the area seen on the aortic valve was likely an area of calcification. The patient today is alert and conversive in bed. He denies any fevers, chills, fatigue, shortness of breath, joint pain, muscle pain, rash, diarrhea, constipation, urinary symptoms. He denies any recent travel. He denies any prosthetic materials such as joint replacement, pacemaker. Last blood cultures checked yesterday with preliminary results positive for gram-positive cocci resembling Staph. PAST MEDICAL HISTORY: 1. Metastatic melanoma with brain metastasis. 2. Immune-mediated colitis. 3. Diabetes mellitus, type 2. 4. Hypertension. PAST SURGICAL HISTORY: 1. Status post right frontal craniotomy with resection of the right frontal tumor on 08/18/18. 2. Status post cervical spine fusion, with a piece of bone from his hip. 3. Status post umbilical hernia repair. 4. Status post right knee arthroscopy with partial medial meniscectomy and medial chondroplasty. 5. Status post right great toe distal phalanx amputation with wide plantar margin sentinel node biopsy. MEDICATIONS: Home medications include: 1. Keppra 500 mg by mouth twice daily. 2. Ramipril 10 mg by mouth every morning. 3. Multivitamin 1 capsule by mouth daily. 4. Metoprolol succinate XL 50 mg by mouth daily. 5. Imodium 2 mg by mouth as needed for diarrhea. 6. Lantus SoloSTAR insulin 55 units subcutaneous every morning. 7. Gabapentin 100 mg by mouth 3 times daily. 8. Dexamethasone 4 mg by mouth twice daily. 9. Vitamin D 2000 units by mouth daily. 10. Atorvastatin 40 mg by mouth daily. Hospital medications: 1. Acetaminophen 650 mg by mouth every 4 hours as needed for fever or pain. 2. Cefazolin 2 g IV for every 8 hours. 3. Dexamethasone 4 mg IV every 8 hours. 4. Dextrose 12.5 g IV as needed for glucose less than 56. 5. Dilaudid 0.5 mg IV. 6. Lantus insulin 55 units subcutaneous daily. 7. Lispro insulin sliding scale subcutaneous with meals and at bedtime. 8. Zofran 4 mg IV every 4 hours as needed for nausea. 9. Ramipril 10 mg by mouth daily. 10. Sodium chloride 50 mg IV an hour. ALLERGIES: PENICILLIN, the patient is unsure of the reaction. FAMILY HISTORY: Denies any family history of recurrent resistant infections or tuberculosis. Denies family history of heart disease. Father with a history of diabetes. Mother and brother passed from pancreatic cancer, mother at age 70, brother at age 68. SOCIAL HISTORY: Denies tobacco or recreational drug use. Occasionally drinks alcohol. REVIEW OF SYSTEMS: I performed a 10-point review of systems. All the pertinent positives and negatives are mentioned in the history of present illness. The remaining review of systems is negative. PHYSICAL EXAMINATION: Vital Signs: Temperature 97.5, heart rate 93, respiratory rate 19, O2 sat is 98% on room air, blood pressure 94/68. General Appearance: The patient is alert and appears to be in no acute distress. Head : Normocephalic, atraumatic. Pupils equal, reactive to light. Extraocular movements are intact. There is no subconjunctival hemorrhage noted. Moist mucous membranes. Neck is supple. No lymphadenopathy. Neurological: Alert and oriented. Cranial nerves II through XII are grossly intact. Cardiovascular : Regular rate and rhythm. S1, S2 present. No murmurs, rubs, or gallops heard. Respiratory: Lung sounds clear to auscultation, bilateral. No accessory muscle use. Abdomen: Bowel sounds present. Abdomen is large, soft, nontender. Extremities: No lower extremity edema. Musculoskeletal: No clubbing or cyanosis noted. Good strength in all extremities. He has full range of motion to his ankles, knees, hips, wrists, elbows, and shoulders. There is no crepitus or pain with palpation. There is no swelling or erythema of the joints. No tenderness to palpation of the neck or spine. He has full range of motion of the neck. Psychological: Calm and cooperative. Skin: No rashes or abnormalities seen. He has an incision that is well approximated to his right frontal scalp with sutures intact. Right great toe with ulcerating melanoma with multiple satellite lesions on the right [place] and upper thigh. DIAGNOSTIC STUDIES/LABORATORY DATA: Sodium 134, potassium 4.2, chloride 101, CO2 25, BUN 24, creatinine 0.59, glucose 215. White blood cell count 15.7, hemoglobin 11.0, hematocrit 32, platelet count 251. Please see impression and recommendations outlined above. Thank you for asking us to see Mr. Roman in consultation. The case has been discussed with the attending, Dr. Dandre Mccall, who agrees with the plan of care. Reviewed by MEREDITH CH, DEENA-C 09/03/18 1025 [id number]/[facility] #: [id number] MTDD
[2018-08-30] MEDS: NS 0.9% 1000 ML** 1,000 ML IV SCH (21:40)
[2018-08-31] MEDS: ceFAZolin VIAL(*) 2 GM in NS 0.9% 100 ML* 100 ML IVPB SCH ×3 (06:14→21:54)
[2018-08-31] MEDS: Dexamethasone IV* 4 MG/ML 1 ML (4 MG) IV SLOW PU SCH ×3 (06:14→21:57)
[2018-08-31] MEDS: Insulin LISPRO* 1 UNITS UNIT SUBCUT SCH ×4 (10:04→21:53)
[2018-08-31] MEDS: Ramipril CAP* 10 MG PO SCH (10:08)
[2018-08-31] MEDS ORDERED: NS 0.9% 100 ML* 100 ML ONE (14:04)
[2018-08-31] MEDS: Insulin GLARGINE(*) 1 UNITS UNIT SUBCUT SCH (18:01)
[2018-08-31] MEDS: NS 0.9% 1000 ML** 1,000 ML IV SCH (21:54)
[2018-09-01] MEDS: ceFAZolin VIAL(*) 2 GM in NS 0.9% 100 ML* 100 ML IVPB SCH ×3 (05:43→21:39)
[2018-09-01] MEDS: Dexamethasone IV* 4 MG/ML 1 ML (4 MG) IV SLOW PU SCH ×3 (05:43→21:48)
--- NOTE | 2018-09-01 06:04 | PN ---
Progress Note - Progress Note Date of Service: 08/31/18 SOAP: Subjective: []He feels better today. Near baseline mental status. Wants to go home. Not in pain at rest and he is eating. Has had limited mobility, taking a few steps with PT. Wants to have stiches out. feels ready to take him home. Acetaminophen (Tylenol Tab*) 650 mg PO Q4H PRN PRN Reason: FEVER/PAIN Dexamethasone Sodium Phosphate (Decadron Iv*) 4 mg IV SLOW PU Q8HR [facility] Last Admin: 09/01/18 05:43 Dose: 4 mg Dextrose (D50w Syringe 50 Ml*) 12.5 gm IV PUSH .FOR FS < 60 - SS PRN PRN Reason: FS < 60 Hydromorphone HCl (Dilaudid Inj*) 0.5 mg IV SLOW PU ONCE PRN PRN Reason: PAIN Cefazolin Sodium 2 gm/ Sodium (Chloride) 100 mls @ 200 mls/hr IVPB Q8H [facility] Last Admin: 09/01/18 05:43 Dose: 200 mls/hr Sodium Chloride (Ns 0.9% 1000 Ml) 1,000 mls @ 50 mls/hr IV PER RATE [facility] Last Admin: 08/31/18 21:54 Dose: 50 mls/hr Insulin Glargine (Lantus(*)) 55 units SUBCUT Q24H [facility] Last Admin: 08/31/18 18:01 Dose: 55 units Insulin Human Lispro (Humalog*) 0 units SUBCUT ACHS [facility]; Protocol Last Admin: 08/31/18 21:53 Dose: 15 units Ondansetron HCl (Zofran Inj*) 4 mg IV Q4H PRN PRN Reason: NAUSEA/VOMITING Ramipril (Altace Cap*) 10 mg PO DAILY [facility] Last Admin: 08/31/18 10:08 Dose: 10 mg Objective: [] Vital Signs Temp Pulse Resp BP Pulse Ox 98.5 F 71 20 114/69 98 09/01/18 03:37 09/01/18 03:37 09/01/18 03:37 09/01/18 03:37 09/01/18 03:37 HEENT: Mucosa moist no lesions. No LAD IJ line in place Incision w/o infection, healing CTA RRR S1S2 w/ no murmurs. 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 Tolerated resection of dominant lesions well and had planned gamma knife to residual disease this week. However, course then complicated by staph bacteremia and sepsis. He has improved on antibiotics but with persistent Staph A bacteremia. Suspect occult endocarditis. Further treatment for melanoma will not be possible. Plan is for home with hospice. Discharge discussed with patients as well as Dr. Verma. He continues to improve and should be suitable for discharge within the next 48 hours. Plan: []1. Will continue Ancef intravenously in the hospital. Continue oral antibiotics at home. 2. PT/OT for next 2 days to work on ADLs. Hospital bed been brought to house. 3. Home hospice on discharge, and transferred to residence if deteriorates. 4. He would like stitches out, we will contact neurosurgery. 5. DNR and no heroic measures.
[2018-09-01] MEDS: Insulin LISPRO* 1 UNITS UNIT SUBCUT SCH ×4 (07:56→21:39)
[2018-09-01] MEDS: Ramipril CAP* 10 MG PO SCH (09:08)
--- NOTE | 2018-09-01 12:40 | PN ---
Progress Note - Progress Note Date of Service: 09/01/18 SOAP: Subjective: [Doing well today. Visits from multiple family members.] Objective: [ Vital Signs: Temp Pulse Resp BP Pulse Ox 98.5 F 71 20 114/69 98 09/01/18 03:37 09/01/18 03:37 09/01/18 03:37 09/01/18 03:37 09/01/18 03:37 Acetaminophen (Tylenol Tab*) 650 mg PO Q4H PRN PRN Reason: FEVER/PAIN Dexamethasone Sodium Phosphate (Decadron Iv*) 4 mg IV SLOW PU Q8HR [facility] Last Admin: 09/01/18 05:43 Dose: 4 mg Dextrose (D50w Syringe 50 Ml*) 12.5 gm IV PUSH .FOR FS < 60 - SS PRN PRN Reason: FS < 60 Hydromorphone HCl (Dilaudid Inj*) 0.5 mg IV SLOW PU ONCE PRN PRN Reason: PAIN Cefazolin Sodium 2 gm/ Sodium (Chloride) 100 mls @ 200 mls/hr IVPB Q8H [facility] Last Admin: 09/01/18 05:43 Dose: 200 mls/hr Sodium Chloride (Ns 0.9% 1000 Ml) 1,000 mls @ 50 mls/hr IV PER RATE [facility] Last Admin: 08/31/18 21:54 Dose: 50 mls/hr Insulin Glargine (Lantus(*)) 55 units SUBCUT Q24H [facility] Last Admin: 08/31/18 18:01 Dose: 55 units Insulin Human Lispro (Humalog*) 0 units SUBCUT ACHS [facility]; Protocol Last Admin: 09/01/18 12:24 Dose: 15 units Ondansetron HCl (Zofran Inj*) 4 mg IV Q4H PRN PRN Reason: NAUSEA/VOMITING Ramipril (Altace Cap*) 10 mg PO DAILY [facility] Last Admin: 09/01/18 09:08 Dose: 10 mg Laboratory Results - last 24 hr 08/31/18 08/31/18 08/31/18 08:10 16:52 21:02 POC Glucose (mg/dL) 94 355 H Glucose Meter Confirm 316 H 09/01/18 09/01/18 07:35 12:15 POC Glucose (mg/dL) 90 391 H Glucose Meter Confirm Exam: Gen: awake and alert, eating lunch without assistance Head: craniotomy incision healing well, sutures in place Neck: R IJ in place Assessment: [63 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 Tolerated resection of dominant lesions well and had planned gamma knife to residual disease this week. However, course then complicated by staph bacteremia and sepsis. He has improved on antibiotics but with persistent Staph bacteremia. Suspect occult endocarditis. Further treatment for melanoma will not be possible. Plan is for home with hospice. Plan: []1. Endocarditis: - cultures remain positive, will stop repeating - Will continue Ancef intravenously in the hospital. Continue oral antibiotics at home. 2. Metastatic melanoma - no further treatment measures - dc home with Hospice Monday 3. s/p craniotomy Dispo: home with hospice Monday
[2018-09-01] MEDS: Insulin GLARGINE(*) 1 UNITS UNIT SUBCUT SCH (17:31)
[2018-09-02] MEDS: ceFAZolin VIAL(*) 2 GM in NS 0.9% 100 ML* 100 ML IVPB SCH ×3 (05:47→22:02)
[2018-09-02] MEDS: Dexamethasone IV* 4 MG/ML 1 ML (4 MG) IV SLOW PU SCH ×3 (05:47→22:02)
[2018-09-02] MEDS: Ramipril CAP* 10 MG PO SCH (08:42)
[2018-09-02] MEDS: Insulin LISPRO* 1 UNITS UNIT SUBCUT SCH ×4 (08:42→21:59)
--- NOTE | 2018-09-02 12:51 | PN ---
Progress Note - Progress Note Date of Service: 09/02/18 SOAP: Subjective: [Doing relatively well. Getting up to a chair for meals. Denies pain or STOVALL. Sutures from craniotomy incision were removed today by neurosurgeon.] Objective: [ Vital Signs: Temp Pulse Resp BP Pulse Ox 98.0 F 78 20 110/60 97 09/02/18 11:56 09/02/18 11:56 09/02/18 11:56 09/02/18 11:56 09/02/18 11:56 Acetaminophen (Tylenol Tab*) 650 mg PO Q4H PRN PRN Reason: FEVER/PAIN Dexamethasone Sodium Phosphate (Decadron Iv*) 4 mg IV SLOW PU Q8HR [facility] Last Admin: 09/02/18 05:47 Dose: 4 mg Dextrose (D50w Syringe 50 Ml*) 12.5 gm IV PUSH .FOR FS < 60 - SS PRN PRN Reason: FS < 60 Hydromorphone HCl (Dilaudid Inj*) 0.5 mg IV SLOW PU ONCE PRN PRN Reason: PAIN Cefazolin Sodium 2 gm/ Sodium (Chloride) 100 mls @ 200 mls/hr IVPB Q8H [facility] Last Admin: 09/02/18 05:47 Dose: 200 mls/hr Sodium Chloride (Ns 0.9% 1000 Ml) 1,000 mls @ 50 mls/hr IV PER RATE [facility] Last Admin: 08/31/18 21:54 Dose: 50 mls/hr Insulin Glargine (Lantus(*)) 55 units SUBCUT Q24H [facility] Last Admin: 09/01/18 17:31 Dose: 55 units Insulin Human Lispro (Humalog*) 0 units SUBCUT ACHS [facility]; Protocol Last Admin: 09/02/18 12:49 Dose: 9 units Ondansetron HCl (Zofran Inj*) 4 mg IV Q4H PRN PRN Reason: NAUSEA/VOMITING Ramipril (Altace Cap*) 10 mg PO DAILY [facility] Last Admin: 09/02/18 08:42 Dose: 10 mg Laboratory Results - last 24 hr 09/01/18 09/01/18 09/02/18 15:51 21:32 07:51 POC Glucose (mg/dL) 393 H 153 H 200 H Exam: Gen: awake and alert, eating lunch without assistance Head: craniotomy incision healing well, sutures removed Neck: R IJ in place Assessment: [63 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 Tolerated resection of dominant lesions well and had planned gamma knife to residual disease this week. However, course then complicated by staph bacteremia and sepsis. He has improved on antibiotics but with persistent Staph bacteremia. Suspect occult endocarditis. Further treatment for melanoma will not be possible. Plan is for home with hospice. Plan: []1. Endocarditis: - cultures remain positive, will stop repeating - Will continue Ancef intravenously in the hospital. Continue oral antibiotics at home. 2. Metastatic melanoma - no further treatment measures - dc home with Hospice Monday 3. s/p craniotomy Dispo: home with hospice Monday, will need same day or next day sign on]
[2018-09-02] MEDS: Insulin GLARGINE(*) 1 UNITS UNIT SUBCUT SCH (17:47)
[2018-09-02] MEDS: NS 0.9% 1000 ML** 1,000 ML IV SCH (19:33)
[2018-09-03] MEDS: Dexamethasone IV* 4 MG/ML 1 ML (4 MG) IV SLOW PU SCH (06:12)
[2018-09-03] MEDS: ceFAZolin VIAL(*) 2 GM in NS 0.9% 100 ML* 100 ML IVPB SCH (06:12)
[2018-09-03] MEDS: Ramipril CAP* 10 MG PO SCH (07:09)
[2018-09-03] MEDS: Insulin LISPRO* 1 UNITS UNIT SUBCUT SCH ×2 (09:43→12:44)
[2018-09-03 12:17] VITALS: BP 116/66
--- NOTE | 2018-09-04 13:44 | DS ---
CC: Dr. Castro; Dr. Dandre Mccall; Dr. Hugo Rangel * DISCHARGE SUMMARY: DATE OF ADMISSION: 08/24/18 DATE OF DISCHARGE: 09/03/18 PRIMARY CARE PROVIDER: Dr. Castro. CONSULTING INFECTIOUS DISEASE SPECIALIST: Dr. Dandre Mccall. CONSULTING PALLIATIVE PHYSICIAN: Dr. Katharine Verma. PRIMARY ONCOLOGIST: Dr. Hugo Rangel. ATTENDING PHYSICIAN: Dr. Romeo Reyes.* (DICTATED BY MARIAM BRAND) DISCHARGING PROVIDER: MARIAM Brand. PRIMARY DISCHARGE DIAGNOSES: 1. 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 2. Acute kidney injury secondary to shock. 3. Status post craniotomy on 08/16/18 for resection of symptomatic metastatic melanoma lesion. 4. Metastatic melanoma - no plans for additional systemic therapy. DISCHARGE MEDICATIONS: 1. Gabapentin 100 mg p.o. 3 times daily. 2. Lantus 55 units subcutaneously daily. 3. Keflex 500 mg p.o. 3 times daily. 4. Dexamethasone 4 mg p.o. twice daily. 5. Imodium 2 mg p.o. with each loose bowel movement as needed for diarrhea. 6. Tramadol 50 mg p.o. q.6 hours as needed for pain. HOSPITAL IMAGIN. CT of the brain on 08/24/18 shows multiple hemorrhagic and intraaxial metastatic lesions without significant interval change compared to recent exam of 08/18/18. 2. Chest x-ray on 08/24/18 shows no active cardiopulmonary disease. 3. CT of the chest, abdomen, and pelvis on 08/24/18 showed no compelling etiology for source of infection. 4. Chest x-ray on 08/24/18 shows right IG line in appropriate position. 5. MRI of the brain on 08/27/18 shows multiple hemorrhagic metastases with associated postsurgical change. The appearance is similar to 08/20/18. 6. Transthoracic echocardiogram shows no vegetations. 7. Transesophageal echocardiogram on 08/29/18 demonstrates mild focal thickening and prolapse involving the right coronary cusp and cannot exclude a vegetation. There is some mild regurg. Remainder of exam is within normal limits. HOSPITAL COURSE: This is a 63-year-old gentleman with known metastatic melanoma who had been hospitalized from 08/12/18 through 08/23/18 with symptomatic brain metastasis and underwent resection of large frontal mass, which pathology confirmed to be metastatic melanoma. He did very well postoperatively and was eventually discharged home on 08/23/18. He was brought back to the hospital by ambulance the following day, noted to be severely hypotensive, mildly hypoxic, and initially afebrile. CT of the brain was initially done, which showed no changes when compared to his postoperative imaging. CT of the chest, abdomen, and pelvis showed no evidence for an obvious source of infection. The patient remains severely hypotensive despite fluid bolus and subsequently admitted to ICU with septic shock requiring vasopressors. Blood cultures grew MSSA. Sources of infection initially thought to be his surgical site, but his craniotomy scar appeared clean and intact without any evidence of abscess or cellulitis. He had had intermittent bleeding and irritation of his right toe, which is the site of his melanoma and with subsequent recurrence, but there was no evidence of cellulitis. Initial transthoracic echocardiogram showed no vegetations. Transesophageal echocardiogram showed possible vegetation on the aortic valve. Repeat blood cultures remained positive through 08/30/18 despite appropriate treatments with cephazolin guided by sensitivities from blood cultures. Discussion between family, oncology service, and infectious disease included making a decision to most appropriate course of treatment. When the patient first was readmitted to the hospital, had expressed that she did not want to pursue any additional local or systemic therapy and his degree of disability exceeded what he said that he would ever tolerate previously. Given the fact that the patient had refractory bacteremia, likely secondary to endocarditis, treatment options included continuing IV antibiotics versus palliating symptoms and returning home with compromised approach including prolonged oral antibiotics. The patient and his family elected for the latter option including returning home with oral antibiotics. The patient initially was quite sedated and had difficulty communicating earlier in this hospitalization, but his mental status improved significantly throughout his hospital stay. At the day of discharge, he developed new right hand weakness and a left lid lag. I discussed with the patient and his that these new symptoms are likely due to progressive metastatic brain disease and unfortunately, these findings are to be expected as the natural course of his disease progresses. The patient and his family accepted this and still wanted to continue with the plan for discharge home with hospice support. DISPOSITION AND FOLLOWUP PLAN: The patient is being discharged to home in stable condition where he lives with his . Plan for sign on within the next couple of days with home hospice. We will continue oral antibiotics, specifically Keflex indefinitely. Indications to stopping this medication would be the patient's desire, intolerable GI effects, and/or inability to swallow. MARIAM BRAND [id number]/[facility] #: [id number] [facility] HOSPITALYoselin
== END 2018-09-03 13:45 | disposition hospice, home (50) | DRG 720 ==
LOC: ED 09:33 → ICU 12:05 → MED 08-26 12:53
PROVIDERS: ADMIT Internal Medicine Hematology & Oncology; ATTEND Internal Medicine Hematology & Oncology
PROC: 3E033XZ Introduction of Vasopressor into Peripheral Vein, Percutaneous Approach (ICD-10-PCS; principal; 2018-08-24)
PROC: 05HM33Z Insertion of Infusion Device into Right Internal Jugular Vein, Percutaneous Approach (ICD-10-PCS; 2018-08-24)
PROC: B24BZZ4 Ultrasonography of Heart with Aorta, Transesophageal (ICD-10-PCS; 2018-08-29)
DX: A41.01 Sepsis due to Methicillin susceptible Staphylococcus aureus (principal); R65.21 Severe sepsis with septic shock; I33.0 Acute and subacute infective endocarditis; I21.4 Non-ST elevation (NSTEMI) myocardial infarction; N17.9 Acute kidney failure, unspecified; C79.9 Secondary malignant neoplasm of unspecified site; C79.31 Secondary malignant neoplasm of brain; G93.40 Encephalopathy, unspecified; E87.2 Acidosis; M62.82 Rhabdomyolysis; B95.61 Methicillin susceptible Staphylococcus aureus infection as the cause of diseases classified elsewhere; I34.0 Nonrheumatic mitral (valve) insufficiency; C43.9 Malignant melanoma of skin, unspecified; C43.71 Malignant melanoma of right lower limb, including hip; R09.02 Hypoxemia; E11.9 Type 2 diabetes mellitus without complications; I10 Essential (primary) hypertension; Z66 Do not resuscitate; R74.0 Nonspecific elevation of levels of transaminase and lactic acid dehydrogenase [LDH]; M19.042 Primary osteoarthritis, left hand; M19.041 Primary osteoarthritis, right hand; R40.2352 Coma scale, best motor response, localizes pain, at arrival to emergency department; R40.2132 Coma scale, eyes open, to sound, at arrival to emergency department; R40.2242 Coma scale, best verbal response, confused conversation, at arrival to emergency department; Z79.4 Long term (current) use of insulin; Z80.0 Family history of malignant neoplasm of digestive organs; Z72.89 Other problems related to lifestyle; Z88.0 Allergy status to penicillin; Z98.1 Arthrodesis status; Z89.411 Acquired absence of right great toe
CPT/HCPCS: 36415; 70450; 70551; 71045; 71250; 74176; 80048; 80053; 80076; 80177; 80307; 80320; 80329; 81003; 81015; 82140; 82270; 82550; 82803; 82947; 83605; 83630; 83735; 83880; 84100; 84443; 84484; 85025; 85027; 85060; 87040; 87077; 87086; 87150; 87186; 87205; 87493; 87641; 93005; 93306; 93312; 93325; 99156; 99157; 99223; 99232; 99233; 99239; 99285; A9270-GY; C8929; G0480; J0690; J0692; J1100; J1644; J1720; J2250; J2310; J3010; J3370; J3475; J3480